=== PATIENT | male | born 1960 | race Caucasian/White ===

== ENCOUNTER 2024-04-07 17:05 | Emergency (ER) | payer OTHER ==
--- OUTSIDE RECORDS SUMMARY | 2024-04-07 17:22 | XMS REPORT | Continuity of Care Document ---
Author Name Unknown Address [address] [facility] [address] [place] [address] [facility] thconnect Address [address] [facility] [address] [place] [address] Care Team Providers Care Boats Renter Name Role Phone [phone] Primary Care Physician UnavailMIKY Romero Attending Clinician Unavailable Laura Beltran MD Attending Clinician [phone] LAURA BELTRAN Attending Clinician UnavailNuvia Wick Attending Clinician [phone] Doctor Unassigned, [place] Attending Clinician U NUVIA Torres Attending Clinician Unavailable Bill May Attending Clinician UnavailMiky Romero OD Attending Clinician [phone] Vaccine, [facility] Attending Clinician Unav JUAN J Olsen Attending Clinician Unavailab JUAN J La Attending Clinician UnavailJuan J Arevalo Attending Clinician + [phone] JOSE LU Attending Clinician Unavailable JOSE LU Attending Clinician Unavailable Jose Lu MD Attending Clinician [phone] Joycelyn, [facility] Attending Clinician Unavailsummer Hirsch, [facility] Attending Clinician UnavailLucia De León Attending Clinician [phone] LUCIA RUFFIN Attending Clinician Unavailable Doctor Unassigned, [place] Attending Clinician U alvaro Cleaning MD, Macy Tellez Attending Clinic salty KARTHIK MARTINS Attending Clinician UnavailKarthik Humphrey MD Attending Clinician [phone] Garret Villanueva MD, Evert Rios Attending Clinician Lyn Johnson DO Attending Clinician [phone] LYN JOHNSON Attending Clinician Unavailable Magdalena Kapoor MD Attending Clinician [phone] MAGDALENA KAPOOR Attending Clinician Unavailable Laura Beltran MD Attending Clinician + [phone] QUIRINO MANTILLA Attending Clinician Unavailab JENNIFER Hoff Attending Clinician Unavailable Claudette Charles MD Attending Clinician + [phone] CLAUDETTE CHARLES Attending Clinician UnavailCLAUDETTE Darnell Attending Clinician Unavaila stefani 1, [facility] Attending Clinician Unavail able ANALISA HORNEUWATOSIN Sakshi Attending Clinician Unava ilable Coleen STEARNS, Eden Sakshi Attending Clinician + NAMRATA CHAVEZ Attending Clinician Unavailable Namrata Chavez MD Attending Clinician [phone] JOSE LU Admitting Clinician Unavailable Jose Lu MD Admitting Clinician + [phone] NUVIA LANGSTON Admitting Clinician Unavailable MAGDALENA KAPOOR Admitting Clinician Unavailable LAURA BELTRAN Admitting Clinician Unavaila stefani Payers Payer Name Policy Type Policy Number Effective Date Expirati on Date Source [facility] [id number] 2014 00:00:00 Problems Condition Name Condition Details Condition Category Status Onset Date Resolution Date Last Treatment Date Treating Clinician Comments Source Abdominal fullness Abdominal fullness Disease Active 09-01 00:00: 00 [facility] Dysphagia, unspecifie d type Dysphagia, unspecifie d type Disease Active 09-01 00:00: 00 [facility] Flatulence , eructation , and gas pain Flatulence , eructation , and gas pain Disease Active 09-01 00:00: 00 [facility] Primary osteoarthr itis of both knees Primary osteoarthr itis of both knees Disease Active 08-28 00:00: 00 [facility] Allergic conjunctiv itis of both eyes Allergic conjunctiv itis of both eyes Disease Active 03-02 00:00: 00 [facility] History of colon polyps History of colon polyps Disease Active 03-02 00:00: 00 [facility] History of skin cancer History of skin cancer Disease Active 03-02 00:00: 00 [facility] Chronic blephariti s Chronic blephariti s Disease Active 03-02 00:00: 00 [facility] Atypical pigmented skin lesion Atypical pigmented skin lesion Disease Active 03-02 00:00: 00 [facility] Pseudogout of hand Pseudogout of hand Disease Active 02-13 00:00: 00 [facility] 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 Provider Narrative : Rotator cuff tear arthropat hy | [facility] Stiffness of shoulder joint Stiffness of shoulder joint Disease Active 02-13 00:00: 00 [facility] Tinnitus Tinnitus Disease Active 02-13 00:00: 00 [facility] Asthma Asthma Disease Active 02-13 00:00: 00 [facility] Dizziness Dizziness Disease Active 02-13 00:00: 00 [facility] Shortness of breath Shortness of breath Disease Active 02-13 00:00: 00 [facility] Dupuytren' s contractur e of right hand Dupuytren' s contractur e of right hand Disease Active 02-13 00:00: 00 [facility] Hyperlipid emia, unspecifie d hyperlipid emia type Hyperlipid emia, unspecifie d hyperlipid emia type Disease Active 02-13 00:00: 00 [facility] Essential hypertensi on Essential hypertensi on Disease Active 02-13 00:00: 00 [facility] Pain of both shoulder joints Pain of both shoulder joints Disease Active 08-11 00:00: 00 Overview: Formattin g of this note might be different from the original. Formattin g of this note might be different from the original. [facility] Obstructiv e sleep apnea Obstructiv e sleep apnea Disease Active 5- 00:00: 00 Overview: Formattin g of this note might be different from the original. Formattin g of this note might be different from the original. Sleep study done 2 weeks ago at [facility]. Report not available in [facility] Will sign release of records for [facility] to get sleep study report [facility] No known active problems No known active problems Disease [facility] Colon cancer screening Colon cancer screening Disease Resolve d 7 00:00: 00 2024-02-12 00:00:00 2024-02-12 12:40:41 [facility] Acute recurrent maxillary sinusitis Acute recurrent maxillary sinusitis Disease Resolve d 5- 00:00: 00 2024-02-12 00:00:00 2024-02-12 12:40:28 Last Assessmen t & Plan: Formattin g of this note might be different from the original. Acute, exacerbat ed.Sympto ms began 9-10 days ago. POCT Flu, Strep, and COVID test obtained. Flu, Strep, and COVID test negative. Initiate Doxycylin e 100 mg BID for 7 days. Start OTC antihista mine daily. Start Flonase 2 sprays intranasa lly daily. If symptoms worsen or continues to develop sinus infection , will need to refer to ENT.Tylen ol/Ibupro fen as needed for fever/hea dache/bod y aches. Continue oral hydration by drinking plenty of fluids. Monitor your symptoms. If you have an emergency warning sign like trouble breathing seek emergency medical attention .Follow-u p if symptoms worsen or do not improve. [facility] Nausea Nausea Disease Resolve d 1- 00:00: 00 2024-02-12 00:00:00 2024-02-12 12:40:53 [facility] Syncope Syncope Disease Resolve d 1- 00:00: 00 2023-08-24 00:00:00 2023-08-24 08:51:53 Overview: Formattin g of this note might be different from the original. Provider Narrative : Syncope | [facility] Tear film insufficie ncy Tear film insufficie ncy Disease Resolve d 2021-02 00:00: 00 2023-05-22 00:00:00 2023-05-22 14:50:49 Overview: Formattin g of this note might be different from the original. Formattin g of this note might be different from the original. Refer to ophthalmo logy--sig tiffanie by Dr. Neves [facility] Polycythem ia Polycythem ia Disease Resolve d 9-23 00:00: 00 2023-02-13 00:00:00 2023-02-13 20:52:02 [facility] Allergies, Adverse Reactions, Alerts Allergy Name Allergy Type Status Severity Reaction(s) Onset Date Inactive Date Treating Clinician Comments Source NO KNOWN ALLERGIE S Drug Class Active [facility] Social History Social Habit Start Date Stop Date Quantity Comments Source Gender identity [facility] 2024-03-19 00:00:00 2024-03-19 00:00:00 [facility] Exposure to SARS-CoV-2 (event) 2022-05-07 00:00:00 2022-05-17 15:32:00 Not sure [facility] Tobacco use and exposure 2020-12-23 00:00:00 2020-12-23 00:00:00 Smokeless tobacco non-user [facility] Sex assigned at 1960 00:00:00 1960 00:00:00 [facility] Smoking Status Start Date Stop Date Source Never smoked tobacco [facility] Medications Ordered Medication Name Filled Medication Name Start Date Stop Date Current Medication? Ordering Clinician Indication Dosage Frequency Signature (SIG) Comments Components Source tamsulosin 0.4 mg 24 hr capsule 03-21 00:00: 00 Yes [id number] .8mg Take 2 capsules by mouth in the morning. [facility] diclofenac sodium 1 % gel 03-21 00:00: 00 Yes [id number] Apply 4 grams 1 % gel four times daily to knee as needed for pain [facility] gabapentin 100 mg capsule 03-21 00:00: 00 04-21 04:59 :00 Yes [id number] 9103 Take 1 capsule by mouth daily for 3 days, THEN 1 capsule 2 (two) times daily for 3 days, THEN 1 capsule 3 (three) times daily for 24 days. Okay to take up to 2-3 tablets every 8 hours as needed [facility] FLUoxetine 20 mg tablet 02-11 00:00: 00 Yes [id number] 20mg Take 1 tablet by mouth in the morning. [facility] cetirizine (ZYRTEC) 10 mg tablet 02-11 00:00: 00 Yes [id number] 10mg Take 1 tablet by mouth in the morning. [facility] rosuvastati n 40 mg tablet 2023-02 00:00: 00 Yes [id number] Take 1 tablet by mouth daily [facility] Acetaminoph en 500 mg Cap 2023-02 00:00: 00 Yes [id number] 4105 Take 1-2 capsules by mouth every 6 hours as needed for pain. [facility] benzonatate 200 mg capsule 2023-02 00:00: 00 03-21 00:00 :00 No [id number] 200mg Take 1 capsule by mouth 3 (three) times daily as needed for Cough. [facility] FLUoxetine 20 mg tablet 2023-02 00:00: 00 02-11 00:00 :00 No [id number] 20mg Take 1 tablet by mouth in the morning. [facility] eyelid cleanser combination 9 (SYSTANE LID WIPES) Towl 2023-02 00:00: 00 03-25 05:59 :00 No [id number] 1U Apply 1 Units to area(s) in the morning for 90 days. [facility] butalbital- acetaminoph en-caff (ESGIC) 50-325-40 mg tablet 1 tablet 2023-02 17:15: 00 12-06 17:19 :00 No 1{tbl} 1 tablet, Oral, ONCE, 1 dose, On Sun12/07/23 at 1215, ANDREIA [facility] tetracaine (PONTOCAINE ) 0.5 % ophthalmic drops 1 Drop 2023-02 17:15: 00 12-06 16:40 :00 No 1[drp] 1 Drop, Both Eyes, ONCE, 1 dose, On Sun12/07/23 at 1215, Routine [facility] fluorescein (FUL-JACOB) ophthalmic strip 2 Strip 2023-02 17:15: 00 12-06 16:40 :00 No 2{strip } 2 Strip, Both Eyes, ONCE, 1 dose, On Sun12/07/23 at 1215, Routine [facility] butalbital- acetaminoph en-caff 50-325-40 mg tablet 2023-02 00:00: 00 Yes [id number] 1{tbl} Take 1 tablet by mouth every 4 (four) hours as needed for Pain (scale 4-6). [facility] FENTanyl (PF) (SUBLIMAZE) injection 25 mcg 11-04 17:39: 10 11-04 20:24 :03 No 25ug 25 mcg, Slow IV Push, Q5MIN PRN, 4 doses, Starting on Sun11/05/23 at 1239, Until Sun11/05/23 at 1524, Routine, Pain Scale 4-6, PACU [facility] ondansetron (ZOFRAN (PF)) injection 4 mg 11-04 17:39: 10 11-04 20:24 :03 No 4mg 4 mg, Slow IV Push, PRN, 1 dose, Starting on Sun11/05/23 at 1239, Until Sun11/05/23 at 1524, Routine, Nausea and Vomiting (N/V), PACU [facility] simethicone (GAS RELIEF (SIMETHICON E)) 40 mg/0.6 mL drops 11-04 17:04: 00 11-04 17:31 :56 No PRN, Starting on Sun11/05/23 at 1204, Until Sun11/05/23 at 1231, Routine, Intra-op [facility] amLODIPine 5 mg tablet 09-27 00:00: 00 Yes [id number] amlodipine 5 mg tablet [facility] lisinopriL 10 mg tablet 09-27 00:00: 00 Yes [id number] 10mg Take 1 tablet by mouth in the morning. [facility] metoprolol succinate XL 25 mg 24 hr tablet 09-27 00:00: 00 Yes [id number] 12.5mg Take 0.5 tablets by mouth in the morning. [facility] CoQ10, Ubiquinol, 200 mg capsule 09-27 00:00: 00 Yes [id number] 200mg Take 1 capsule by mouth in the morning. [facility] rosuvastati n 40 mg tablet 09-27 00:00: 00 01-14 00:00 :00 No [id number] Take 1 tablet by mouth daily [facility] peg-electro lyte soln 236-22.74-6 .74 -5.86 gram solution 08-30 00:00: 00 Yes [id number] Please follow [facility] prep instructio ns for colonoscop y. [facility] pantoprazol e 40 mg EC tablet 08-23 00:00: 00 Yes [id number] 40mg Take 1 tablet by mouth in the morning. [facility] diclofenac dodium 1 % gel 08-23 00:00: 00 03-21 00:00 :00 No [id number] Apply 4 grams 1 % gel four times daily to knee as needed for pain [facility] amLODIPine 5 mg tablet 08-23 00:00: 00 09-27 00:00 :00 No [id number] amlodipine 5 mg tablet [facility] lisinopriL 10 mg tablet 08-23 00:00: 00 09-27 00:00 :00 No [id number] 10mg Take 1 tablet by mouth in the morning. [facility] [place]-3-DHA -EPA-Fish Oil (FISH OIL) 1,000 mg (120 mg-180 mg) Cap 08-22 00:00: 00 Yes [id number] 1{capsu le} Take 1 capsule by mouth in the morning and 1 capsule in the evening. [facility] tamsulosin 0.4 mg 24 hr capsule 08-22 00:00: 00 03-21 00:00 :00 No [id number] .4mg Take 1 capsule by mouth in the morning. [facility] fluticasone propionate 50 mcg/actuati on nasal spray 08-02 00:00: 00 02-11 00:00 :00 No [id number] 2{spray } Use 2 Sprays in each nostril in the morning. [facility] peg-electro lyte soln 236-22.74-6 .74 -5.86 gram solution 07-19 00:00: 00 08-30 00:00 :00 No Please follow [facility] prep instructio ns for colonoscop y. [facility] benzonatate 200 mg capsule 06-24 00:00: 00 08-23 00:00 :00 No [id number] 200mg Take 1 capsule by mouth every 8 (eight) hours as needed for Cough. [facility] fluticasone propionate 50 mcg/actuati on nasal spray 06-24 00:00: 00 08-02 00:00 :00 No [id number] 2{spray } Use 2 Sprays in each nostril in the morning. [facility] doxycycline hyclate 100 mg capsule 06-24 00:00: 07-02 04:59 :00 No [id number] 100mg Take 1 capsule by mouth in the morning and 1 capsule in the evening. Do all this for 7 days. [facility] albuterol 90 mcg/actuati on inhaler 06-17 00:00: 00 Yes [id number] INHALE 2 PUFFS EVERY 4 TO 6 HOURS NEEDED [facility] cyclobenzap rine 10 mg tablet 16 14:00: 49 Yes cyclobenza celsa 10 mg tablet [facility] cetirizine (ZYRTEC) 10 mg tablet 05-21 14:00: 49 02-11 00:00 :00 No Zyrtec 10 mg tablet Take 1 tablet every day by oral route. [facility] naproxen 500 mg tablet 05-21 14:00: 49 01-14 00:00 :00 No naproxen 500 mg tablet [facility] lisinopriL 10 mg tablet 05-21 14:00: 49 08-23 00:00 :00 No 10mg Take 1 tablet by mouth in the morning. [facility] trazodone HCl (TRAZODONE ORAL) 05-21 14:00: 49 08-22 00:00 :00 No Take by mouth. [facility] aspirin 81 mg EC tablet 05-21 13:58: 11 03-21 00:00 :00 No at bed time [facility] acetaminoph en 325 mg tablet 16 13:56: 43 01-14 00:00 :00 No acetaminop hen 325 mg tablet TAKE 2 TABLETS BY MOUTH EVERY 6 HOURS NEEDED FOR PAIN/FEVER [facility] benzonatate 200 mg capsule 05-21 00:00: 00 06-24 00:00 :00 No [id number] 200mg Take 1 capsule by mouth 3 (three) times daily as needed for Cough. [facility] albuterol (PROAIR HFA) 90 mcg/actuati on inhaler 16 00:00: 00 06-17 00:00 :00 No [id number] ProAir HFA 90 mcg/actuat ion aerosol inhaler Inhale 2 puffs every 4-6 hours by inhalation route as needed. [facility] amoxicillin -clavulanat e (AUGMENTIN) 875-125 mg per tablet 05-21 00:00: 00 05-29 04:59 :00 No [id number] 1{tbl} Take 1 tablet by mouth in the morning and 1 tablet in the evening. Do all this for 7 days. [facility] rosuvastati n 40 mg tablet 04-17 00:00: 00 09-27 00:00 :00 No [id number] Take 1 tablet by mouth daily [facility] pantoprazol e 40 mg EC tablet 04-11 00:00: 00 08-23 00:00 :00 No [id number] 40mg Take 1 tablet by mouth in the morning. [facility] pantoprazol e 40 mg EC tablet 03-29 00:00: 00 04-11 00:00 :00 No [id number] 40mg Take 1 tablet by mouth in the morning. [facility] trazodone HCl (TRAZODONE ORAL) 03-23 15:00: 30 Yes Take by mouth. [facility] aspirin 81 mg EC tablet 16 14:50: 04 Yes at bed time [facility] lisinopriL 10 mg tablet 16 14:49: 53 Yes 10mg Take 1 tablet by mouth in the morning. [facility] olopatadine (PATADAY TWICE DAILY RELIEF) 0.1 % ophthalmic solution 03-15 00:00: 00 Yes [id number] 1[drp] Place 1 Drop in both eyes in the morning and 1 Drop in the evening. As needed for itchy, watery eyes, or crust accumulati on [facility] pantoprazol e 40 mg EC tablet 02-27 00:00: 00 03-29 00:00 :00 No [id number] 40mg Take 1 tablet by mouth in the morning. [facility] Olopatadine (PATADAY ONCE DAILY RELIEF) 0.2 % ophthalmic drops 02-27 00:00: 00 03-15 00:00 :00 No [id number] 1[drp] Place 1 Drop in each eye in the morning. As needed for itchy/wate ry eyes [facility] pantoprazol e 40 mg EC tablet 02-16 00:00: 00 02-27 00:00 :00 No [id number] 40mg Take 1 tablet by mouth in the morning. [facility] naproxen 500 mg tablet 02-13 15:21: 18 Yes naproxen 500 mg tablet [facility] aspirin 81 mg EC tablet 02-13 15:16: 08 Yes at bed time [facility] trazodone HCl (TRAZODONE ORAL) 02-13 15:12: 15 Yes Take by mouth. [facility] cyclobenzap rine 10 mg tablet 02-13 15:12: 15 Yes cyclobenza celsa 10 mg tablet [facility] atorvastati n 40 mg tablet 02-13 15:10: 28 02-13 00:00 :00 No 40mg Take 1 tablet by mouth at bedtime. [facility] pantoprazol e 40 mg EC tablet 02-13 00:00: 00 02-15 00:00 :00 No [id number] 40mg Take 1 tablet by mouth in the morning. [facility] rosuvastati n 40 mg tablet 08-17 00:00: 00 04-17 00:00 :00 No 40mg Take 1 tablet by mouth in the morning. [facility] trazodone HCl (TRAZODONE ORAL) 05-17 15:42: 52 Yes Take by mouth. [facility] lisinopriL 10 mg tablet 05-17 15:42: 24 Yes 10mg Take 1 tablet by mouth in the morning. [facility] trazodone HCl (TRAZODONE ORAL) 05-17 15:42: 24 Yes Take by mouth. [facility] atorvastati n 40 mg tablet 05-17 15:42: 24 Yes 40mg Take 1 tablet by mouth at bedtime. [facility] cyclobenzap rine 10 mg tablet 05-17 15:41: 19 Yes cyclobenza celsa 10 mg tablet [facility] cyclobenzap rine 10 mg tablet 2020-02 14:24: 04 Yes cyclobenza celsa 10 mg tablet [facility] [place]-3-DHA -EPA-Fish Oil (FISH OIL) 300-1,000 mg Cap 2020-02 14:24: 04 Yes Fish Oil 300 mg-500 mg capsule Take 1 capsule every day by oral route. [facility] acetaminoph en 325 mg tablet 2020-02 14:24: 04 Yes acetaminop hen 325 mg tablet TAKE 2 TABLETS BY MOUTH EVERY 6 HOURS NEEDED FOR PAIN/FEVER [facility] cetirizine (ZYRTEC) 10 mg tablet 2020-02 14:24: 04 Yes Zyrtec 10 mg tablet Take 1 tablet every day by oral route. [facility] ascorbic acid, vitamin C, 500 mg tablet 2020-02 14:24: 04 Yes Vitamin C 500 mg tablet [facility] cholecalcif sujatha, vitamin D3, 25 mcg (1,000 unit) tablet 2020-02 14:24: 04 Yes Vitamin D3 25 mcg (1,000 unit) tablet Take 2 tablets every day by oral route. [facility] [place]-3-DHA -EPA-Fish Oil (FISH OIL) 300-1,000 mg Cap 2020-02 14:24: 04 08-22 00:00 :00 No Fish Oil 300 mg-500 mg capsule Take 1 capsule every day by oral route. [facility] albuterol (PROAIR HFA) 90 mcg/actuati on inhaler 2020-02 14:24: 04 05-21 00:00 :00 No ProAir HFA 90 mcg/actuat ion aerosol inhaler Inhale 2 puffs every 4-6 hours by inhalation route as needed. [facility] budesonide- formoteroL 80-4.5 mcg/actuati on inhaler 2020-02 14:24: 04 05-21 00:00 :00 No Symbicort 80 mcg-4.5 mcg/actuat ion HFA aerosol inhaler Inhale 2 puffs twice a day by inhalation route. [facility] amLODIPine 5 mg tablet 10-28 00:00: 00 08-23 00:00 :00 No amlodipine 5 mg tablet [facility] lisinopriL 20 mg tablet 10-28 00:00: 00 01-27 05:59 :00 No 20mg Take 20 mg by mouth. [facility] atorvastati n 80 mg tablet 10-28 00:00: 00 01-27 05:59 :00 No 80mg Take 80 mg by mouth. [facility] Immunizations Ordered Immunization Name Filled Immunization Name Date Status Comments Source Flu Injectable [facility] Pres-Free (FLUCELVAX) 2024-01-15 00:00:00 Completed [facility] Influenza Virus Vaccine Quad IM, Preserv and ABX Free 6 MO-64 YRS (FLUCELVAX) 2022-11-05 00:00:00 Completed SARS-COV-2 COVID 19 UMESH SUCROSE VACCINE 12+, , 0.3 ML (30 MCG), IM PFIZER (LANGSTON TOP) 2022-11-05 00:00:00 Completed Influenza Virus Vaccine Quad IM, Preserv and ABX Free 6 MO-64 YRS (FLUCELVAX) 2022-11-05 00:00:00 Completed SARS-COV-2 COVID 19 UMESH SUCROSE VACCINE 12+, , 0.3 ML (30 MCG), IM PFIZER (LANGSTON TOP) 2022-11-05 00:00:00 Completed Influenza Virus Vaccine Quad IM, Preserv and ABX Free 6 MO-64 YRS (FLUCELVAX) 2022-11-05 00:00:00 Completed SARS-COV-2 COVID 19 UMESH SUCROSE VACCINE 12+, 0.3 ML (30 MCG), IM PFIZER (LANGSTON TOP) 2022-11-05 00:00:00 Completed TDAP 2022-06-02 00:00:00 Completed Zoster Vaccine Recombinant 2022-06-02 00:00:00 Completed TDAP 2022-06-02 00:00:00 Completed Zoster Vaccine Recombinant 2022-06-02 00:00:00 Completed TDAP 2022-06-02 00:00:00 Completed Zoster Vaccine Recombinant 2022-06-02 00:00:00 Completed Influenza Virus Vaccine Quad IM 3+ YRS 2022-01-02 00:00:00 Completed Pneumococcal 20 Conjugate, PCV20 (Prevnar 20) 2022-01-02 00:00:00 Completed [facility] Influenza Virus Vaccine Quad IM 3+ YRS 2022-01-02 00:00:00 Completed Pneumococcal 20 Conjugate, PCV20 (Prevnar 20) 2022-01-02 00:00:00 Completed [facility] Influenza Virus Vaccine Quad IM 3+ YRS 2022-01-02 00:00:00 Completed Pneumococcal 20 Conjugate, PCV20 (Prevnar 20) 2022-01-02 00:00:00 Completed [facility] SARS-COV-2 COVID-19 UMESH-SUCROSE VACCINE 12 YRS+, BIVALENT 0.3ML, IM, (PFIZER LANGSTON TOP) 2021-11-03 00:00:00 Completed SARS-COV-2 COVID-19 UMESH-SUCROSE VACCINE 12 YRS+, BIVALENT 0.3ML, IM, (PFIZER LANGSTON TOP) 2021-11-03 00:00:00 Completed SARS-COV-2 COVID-19 UMESH-SUCROSE VACCINE 12 YRS+, BIVALENT 0.3ML, IM, (PFIZER LANGSTON TOP) 2021-11-03 00:00:00 Completed SARS-COV-2 COVID-19 PFIZER VACCINE 2021-01-14 00:00:00 Completed SARS-COV-2 COVID-19 PFIZER VACCINE 2021-01-14 00:00:00 Completed SARS-COV-2 COVID-19 PFIZER VACCINE 2021-01-14 00:00:00 Completed Influenza Virus Vaccine Quad IM 3+ YRS 2020-11-03 00:00:00 Completed Pneumococcal Polysaccharide, PPSV23 (PNEUMOVAX) 2020-11-03 00:00:00 Completed Zoster Vaccine Recombinant 2020-11-03 00:00:00 Completed Influenza Virus Vaccine Quad IM 3+ YRS 2020-11-03 00:00:00 Completed Pneumococcal Polysaccharide, PPSV23 (PNEUMOVAX) 2020-11-03 00:00:00 Completed Zoster Vaccine Recombinant 2020-11-03 00:00:00 Completed Influenza Virus Vaccine Quad IM 3+ YRS 2020-11-03 00:00:00 Completed Pneumococcal Polysaccharide, PPSV23 (PNEUMOVAX) 2020-11-03 00:00:00 Completed Zoster Vaccine Recombinant 2020-11-03 00:00:00 Completed SARS-COV-2 COVID-19 PFIZER VACCINE 2020-05-21 00:00:00 Completed SARS-COV-2 COVID-19 PFIZER VACCINE 2020-05-21 00:00:00 Completed SARS-COV-2 COVID-19 PFIZER VACCINE 2020-05-21 00:00:00 Completed SARS-COV-2 COVID-19 PFIZER VACCINE 2020-04-23 00:00:00 Completed SARS-COV-2 COVID-19 PFIZER VACCINE 2020-04-23 00:00:00 Completed SARS-COV-2 COVID-19 PFIZER VACCINE 2020-04-23 00:00:00 Completed Influenza Virus Vaccine Quad IM 3+ YRS 2019-11-12 00:00:00 Completed Influenza Virus Vaccine Quad IM 3+ YRS 2019-11-12 00:00:00 Completed Influenza Virus Vaccine Quad IM 3+ YRS 2019-11-12 00:00:00 Completed Influenza Virus Vaccine Quad IM 3+ YRS 2018-12-18 00:00:00 Completed [facility] Zoster Vaccine Recombinant 2018-12-18 00:00:00 Completed Influenza Virus Vaccine Quad IM 3+ YRS 2018-12-18 00:00:00 Completed [facility] Zoster Vaccine Recombinant 2018-12-18 00:00:00 Completed Influenza Virus Vaccine Quad IM 3+ YRS 2018-12-18 00:00:00 Completed [facility] Zoster Vaccine Recombinant 2018-12-18 00:00:00 Completed Influenza Virus Vaccine Quad IM 3+ YRS 2017-11-08 00:00:00 Completed Zoster Vaccine Recombinant 2017-11-08 00:00:00 Completed Influenza Virus Vaccine Quad IM 3+ YRS 2017-11-08 00:00:00 Completed Zoster Vaccine Recombinant 2017-11-08 00:00:00 Completed Influenza Virus Vaccine Quad IM 3+ YRS 2017-11-08 00:00:00 Completed Zoster Vaccine Recombinant 2017-11-08 00:00:00 Completed Influenza Virus Vaccine Quad IM 3+ YRS 2016-11-22 00:00:00 Completed Pneumococcal 13 Conjugate, PCV13 (Prevnar 13) 2016-11-22 00:00:00 Completed TDAP 2016-11-22 00:00:00 Completed Influenza Virus Vaccine Quad IM 3+ YRS 2016-11-22 00:00:00 Completed Pneumococcal 13 Conjugate, PCV13 (Prevnar 13) 2016-11-22 00:00:00 Completed TDAP 2016-11-22 00:00:00 Completed Influenza Virus Vaccine Quad IM 3+ YRS 2016-11-22 00:00:00 Completed Pneumococcal 13 Conjugate, PCV13 (Prevnar 13) 2016-11-22 00:00:00 Completed TDAP 2016-11-22 00:00:00 Completed Influenza Virus Vaccine (3+ yrs) 2015-10-17 00:00:00 Completed Influenza, split virus, trivalent, PF (AFLURIA/FLUARIX/FL ULAVAL/FLUZONE) 2015-10-17 00:00:00 Completed Influenza, split virus, trivalent, preservative (3+ Yrs) (Afluria) 2015-10-17 00:00:00 Completed Influenza, split virus, trivalent, PF (AFLURIA/FLUARIX/FL ULAVAL/FLUZONE) 2015-10-17 00:00:00 Completed Influenza, split virus, trivalent, preservative (3+ Yrs) (Afluria) 2015-10-17 00:00:00 Completed Influenza, split virus, trivalent, PF (AFLURIA/FLUARIX/FL ULAVAL/FLUZONE) 2015-10-17 00:00:00 Completed Pneumococcal Polysaccharide, PPSV23 (PNEUMOVAX) 2015-03-16 00:00:00 Completed TDAP 2015-03-16 00:00:00 Completed Pneumococcal Polysaccharide, PPSV23 (PNEUMOVAX) 2015-03-16 00:00:00 Completed TDAP 2015-03-16 00:00:00 Completed Pneumococcal Polysaccharide, PPSV23 (PNEUMOVAX) 2015-03-16 00:00:00 Completed TDAP 2015-03-16 00:00:00 Completed Zoster(Zostavax)([facility]) 2014-02-17 00:00:00 Completed Zoster(Zostavax)([facility]) 2014-02-17 00:00:00 Completed Zoster(Zostavax)([facility]) 2014-02-17 00:00:00 Completed Influenza, split virus, trivalent, PF (AFLURIA/FLUARIX/FL ULAVAL/FLUZONE) 2013-12-18 00:00:00 Completed Influenza, split virus, trivalent, PF (AFLURIA/FLUARIX/FL ULAVAL/FLUZONE) 2013-12-18 00:00:00 Completed Influenza, split virus, trivalent, PF (AFLURIA/FLUARIX/FL ULAVAL/FLUZONE) 2013-12-18 00:00:00 Completed Influenza, split virus, trivalent, PF (AFLURIA/FLUARIX/FL ULAVAL/FLUZONE) 2013-12-04 00:00:00 Completed Influenza, split virus, trivalent, PF (AFLURIA/FLUARIX/FL ULAVAL/FLUZONE) 2013-12-04 00:00:00 Completed Influenza, split virus, trivalent, PF (AFLURIA/FLUARIX/FL ULAVAL/FLUZONE) 2013-12-04 00:00:00 Completed Influenza Virus Vaccine Quad Nasal (Flumist) 2012-11-19 00:00:00 Completed Influenza Virus Vaccine Quad Nasal (Flumist) 2012-11-19 00:00:00 Completed Influenza Virus Vaccine Quad Nasal (Flumist) 2012-11-19 00:00:00 Completed Influenza, Live, Trivalent, Intranasal (FLUMIST) 2011-10-03 00:00:00 Completed Influenza, Live, Trivalent, Intranasal (FLUMIST) 2011-10-03 00:00:00 Completed Influenza, Live, Trivalent, Intranasal (FLUMIST) 2011-10-03 00:00:00 Completed TDAP 2011-08-29 00:00:00 Completed Anthrax Vaccine 2011-08-29 00:00:00 Completed PPD (TB) 2011-08-29 00:00:00 Completed Varicella (varivax)(chicken pox) 2011-08-29 00:00:00 Completed Typhoid Vaccine, Vi Capsular Polysaccharide, IM 2011-08-29 00:00:00 Completed TDAP 2011-08-29 00:00:00 Completed Anthrax Vaccine 2011-08-29 00:00:00 Completed PPD (TB) 2011-08-29 00:00:00 Completed Varicella (varivax)(chicken pox) 2011-08-29 00:00:00 Completed Typhoid Vaccine, Vi Capsular Polysaccharide, IM 2011-08-29 00:00:00 Completed TDAP 2011-08-29 00:00:00 Completed Anthrax Vaccine 2011-08-29 00:00:00 Completed PPD (TB) 2011-08-29 00:00:00 Completed Varicella (varivax)(chicken pox) 2011-08-29 00:00:00 Completed Typhoid Vaccine, Vi Capsular Polysaccharide, IM 2011-08-29 00:00:00 Completed Influenza, Live, Trivalent, Intranasal (FLUMIST) 2010-11-23 00:00:00 Completed Influenza, Live, Trivalent, Intranasal (FLUMIST) 2010-11-23 00:00:00 Completed Influenza, Live, Trivalent, Intranasal (FLUMIST) 2010-11-23 00:00:00 Completed Influenza Virus Vaccine 2009-12-02 00:00:00 Completed Influenza Virus Vaccine 2009-12-02 00:00:00 Completed Influenza Virus Vaccine 2009-12-02 00:00:00 Completed Anthrax Vaccine 2009-05-13 00:00:00 Completed Anthrax Vaccine 2009-05-13 00:00:00 Completed Anthrax Vaccine 2009-05-13 00:00:00 Completed Smallpox 2008-12-10 00:00:00 Completed Smallpox 2008-12-10 00:00:00 Completed Smallpox 2008-12-10 00:00:00 Completed Influenza, Live, Trivalent, Intranasal (FLUMIST) 2008-12-09 00:00:00 Completed PPD (TB) 2008-12-09 00:00:00 Completed Influenza, Live, Trivalent, Intranasal (FLUMIST) 2008-12-09 00:00:00 Completed PPD (TB) 2008-12-09 00:00:00 Completed Influenza, Live, Trivalent, Intranasal (FLUMIST) 2008-12-09 00:00:00 Completed PPD (TB) 2008-12-09 00:00:00 Completed Anthrax Vaccine 2008-04-02 00:00:00 Completed MMR 2008-04-02 00:00:00 Completed Anthrax Vaccine 2008-04-02 00:00:00 Completed MMR 2008-04-02 00:00:00 Completed Anthrax Vaccine 2008-04-02 00:00:00 Completed MMR 2008-04-02 00:00:00 Completed Typhoid Vaccine, Vi Capsular Polysaccharide, IM 2008-01-15 00:00:00 Completed Typhoid Vaccine, Vi Capsular Polysaccharide, IM 2008-01-15 00:00:00 Completed Typhoid Vaccine, Vi Capsular Polysaccharide, IM 2008-01-15 00:00:00 Completed HEP B, Adult Dosage 2007-12-11 00:00:00 Completed Influenza, Live, Trivalent, Intranasal (FLUMIST) 2007-12-11 00:00:00 Completed HEP B, Adult Dosage 2007-12-11 00:00:00 Completed Influenza, Live, Trivalent, Intranasal (FLUMIST) 2007-12-11 00:00:00 Completed HEP B, Adult Dosage 2007-12-11 00:00:00 Completed Influenza, Live, Trivalent, Intranasal (FLUMIST) 2007-12-11 00:00:00 Completed HEP B, Adult Dosage 2007-11-01 00:00:00 Completed Hepatitis A Adult 2007-11-01 00:00:00 Completed Typhoid Vaccine, Vi Capsular Polysaccharide, IM 2007-11-01 00:00:00 Completed HEP B, Adult Dosage 2007-11-01 00:00:00 Completed Hepatitis A Adult 2007-11-01 00:00:00 Completed Typhoid Vaccine, Vi Capsular Polysaccharide, IM 2007-11-01 00:00:00 Completed HEP B, Adult Dosage 2007-11-01 00:00:00 Completed Hepatitis A Adult 2007-11-01 00:00:00 Completed Typhoid Vaccine, Vi Capsular Polysaccharide, IM 2007-11-01 00:00:00 Completed PPD (TB) 2007-10-31 00:00:00 Completed PPD (TB) 2007-10-31 00:00:00 Completed PPD (TB) 2007-10-31 00:00:00 Completed Anthrax Vaccine 2007-09-16 00:00:00 Completed MMR 2007-09-16 00:00:00 Completed PPD (TB) 2007-09-16 00:00:00 Completed Anthrax Vaccine 2007-09-16 00:00:00 Completed MMR 2007-09-16 00:00:00 Completed PPD (TB) 2007-09-16 00:00:00 Completed Anthrax Vaccine 2007-09-16 00:00:00 Completed MMR 2007-09-16 00:00:00 Completed PPD (TB) 2007-09-16 00:00:00 Completed PPD (TB) 2007-05-15 00:00:00 Completed PPD (TB) 2007-05-15 00:00:00 Completed PPD (TB) 2007-05-15 00:00:00 Completed PPD (TB) 2007-05-08 00:00:00 Completed PPD (TB) 2007-05-08 00:00:00 Completed PPD (TB) 2007-05-08 00:00:00 Completed Flu Split Virus, PSA 2007-01-04 00:00:00 Completed Flu Split Virus, PSA 2007-01-04 00:00:00 Completed Flu Split Virus, PSA 2007-01-04 00:00:00 Completed Anthrax Vaccine 2006-11-15 00:00:00 Completed Anthrax Vaccine 2006-11-15 00:00:00 Completed Anthrax Vaccine 2006-11-15 00:00:00 Completed PPD (TB) 2006-10-10 00:00:00 Completed PPD (TB) 2006-10-10 00:00:00 Completed PPD (TB) 2006-10-10 00:00:00 Completed Anthrax Vaccine 2006-05-31 00:00:00 Completed Anthrax Vaccine 2006-05-31 00:00:00 Completed Anthrax Vaccine 2006-05-31 00:00:00 Completed Anthrax Vaccine 2006-01-11 00:00:00 Completed Anthrax Vaccine 2006-01-11 00:00:00 Completed Anthrax Vaccine 2006-01-11 00:00:00 Completed HEP B, Adult Dosage 2005-11-22 00:00:00 Completed Flu Split Virus, PSA 2005-11-22 00:00:00 Completed Typhoid Vaccine, Vi Capsular Polysaccharide, IM 2005-11-22 00:00:00 Completed HEP B, Adult Dosage 2005-11-22 00:00:00 Completed Flu Split Virus, PSA 2005-11-22 00:00:00 Completed Typhoid Vaccine, Vi Capsular Polysaccharide, IM 2005-11-22 00:00:00 Completed HEP B, Adult Dosage 2005-11-22 00:00:00 Completed Flu Split Virus, PSA 2005-11-22 00:00:00 Completed Typhoid Vaccine, Vi Capsular Polysaccharide, IM 2005-11-22 00:00:00 Completed HEP B, Adult Dosage 2005-05-09 00:00:00 Completed PPD (TB) 2005-05-09 00:00:00 Completed Hepatitis A Adult 2005-05-09 00:00:00 Completed HEP B, Adult Dosage 2005-05-09 00:00:00 Completed PPD (TB) 2005-05-09 00:00:00 Completed Hepatitis A Adult 2005-05-09 00:00:00 Completed HEP B, Adult Dosage 2005-05-09 00:00:00 Completed PPD (TB) 2005-05-09 00:00:00 Completed Hepatitis A Adult 2005-05-09 00:00:00 Completed Flu Split Virus, PSA 2004-12-20 00:00:00 Completed Flu Split Virus, PSA 2004-12-20 00:00:00 Completed Flu Split Virus, PSA 2004-12-20 00:00:00 Completed Flu Split Virus, PSA 2003-12-08 00:00:00 Completed Tetanus/Diptheria 2003-12-08 00:00:00 Completed Hepatitis A Adult 2003-12-08 00:00:00 Completed Flu Split Virus, PSA 2003-12-08 00:00:00 Completed Tetanus/Diptheria 2003-12-08 00:00:00 Completed Hepatitis A Adult 2003-12-08 00:00:00 Completed Flu Split Virus, PSA 2003-12-08 00:00:00 Completed Tetanus/Diptheria 2003-12-08 00:00:00 Completed Hepatitis A Adult 2003-12-08 00:00:00 Completed Anthrax Vaccine 2003-11-04 00:00:00 Completed HEP B, Adult Dosage 2003-11-04 00:00:00 Completed PPD (TB) 2003-11-04 00:00:00 Completed Anthrax Vaccine 2003-11-04 00:00:00 Completed HEP B, Adult Dosage 2003-11-04 00:00:00 Completed PPD (TB) 2003-11-04 00:00:00 Completed Anthrax Vaccine 2003-11-04 00:00:00 Completed HEP B, Adult Dosage 2003-11-04 00:00:00 Completed PPD (TB) 2003-11-04 00:00:00 Completed Meningococcal Vaccine 2003-08-03 00:00:00 Completed PPD (TB) 2003-08-03 00:00:00 Completed Typhoid Vaccine, Vi Capsular Polysaccharide, IM 2003-08-03 00:00:00 Completed Meningococcal Vaccine 2003-08-03 00:00:00 Completed PPD (TB) 2003-08-03 00:00:00 Completed Typhoid Vaccine, Vi Capsular Polysaccharide, IM 2003-08-03 00:00:00 Completed Meningococcal Vaccine 2003-08-03 00:00:00 Completed PPD (TB) 2003-08-03 00:00:00 Completed Typhoid Vaccine, Vi Capsular Polysaccharide, IM 2003-08-03 00:00:00 Completed [facility] Flu Split Virus, PSA 2003-01-07 00:00:00 Completed Flu Split Virus, PSA 2003-01-07 00:00:00 Completed Flu Split Virus, PSA 2003-01-07 00:00:00 Completed Flu Split Virus, PSA 2002-02-19 00:00:00 Completed Flu Split Virus, PSA 2002-02-19 00:00:00 Completed Flu Split Virus, PSA 2002-02-19 00:00:00 Completed Flu Whole Virus 2001-12-13 00:00:00 Completed Flu Whole Virus 2001-12-13 00:00:00 Completed Flu Whole Virus 2001-12-13 00:00:00 Completed SARS-COV-2 COVID 19 UMESH SUCROSE VACCINE +, [id number], 0.3 ML (30 MCG), IM PFIZER (LANGSTON TOP) Unknown Completed [facility]ria [facility]) [facility] Smallpox Unknown Completed [facility] Varicella (varivax)(chicken pox) Unknown Completed [facility] Zoster(Zostavax)(Sh ingles) Unknown Completed [facility] Pneumococcal 20 Conjugate, PCV20 (Prevnar 20) Unknown Completed [facility] Quad IM, Preserv and ABX Free 6 MO-64 YRS (FLUCELVAX) Unknown Completed [facility] SARS-COV-2 COVID 19 UMESH SUCROSE VACCINE 12+, [id number], 0.3 ML (30 MCG), IM PFIZER (LANGSTON TOP) Unknown Completed [facility] Typhoid Vaccine, Vi Capsular Polysaccharide, IM Unknown Completed [facility] Influenza Virus Vaccine Quad IM 3+ YRS Unknown Completed [facility] Influenza Virus Vaccine (3+ yrs) Unknown Completed [facility] Pneumococcal 13 Conjugate, PCV13 (Prevnar 13) Unknown Completed [facility] Pneumococcal Polysaccharide, PPSV23 (PNEUMOVAX) Unknown Completed [facility] TDAP Unknown Completed [facility] Zoster Vaccine Recombinant Unknown Completed [facility] Anthrax Vaccine Unknown Completed [facility] SARS-COV-2 COVID-19 PFIZER VACCINE Unknown Completed [facility] SARS-COV-2 COVID-19 UMESH-SUCROSE VACCINE 12 YRS+, BIVALENT 0.3ML, IM, (PFIZER LANGSTON TOP) Unknown Completed [facility] HEP B, Adult Dosage Unknown Completed [facility] Influenza Virus Vaccine Nasal Unknown Completed [facility] Flu Split Virus, PSA Unknown Completed [facility] Influenza Virus Vaccine Unknown Completed [facility] Flu Whole Virus Unknown Completed [facility] Influenza Virus Vaccine Quad Nasal (Flumist) Unknown Completed [facility] Flu Trivalent Unknown Completed [facility] MMR Unknown Completed [facility] Meningococcal Vaccine Unknown Completed [facility] Tetanus/Diptheria Unknown Completed Un [facility] PPD (TB) Unknown Completed [facility] Smallpox Unknown Completed [facility] Varicella (varivax)(chicken pox) Unknown Completed [facility] Zoster(Zostavax)(Sh ingles) Unknown Completed [facility] Pneumococcal 20 Conjugate, PCV20 (Prevnar 20) Unknown Completed [facility]atitis A Adult [facility] Quad IM, Preserv and ABX Free 6 MO-64 YRS (FLUCELVAX) Unknown Completed [facility] SARS-COV-2 COVID 19 UMESH SUCROSE VACCINE 12+, [id number], 0.3 ML (30 MCG), IM PFIZER (LANGSTON TOP) Unknown Completed [facility] Typhoid Vaccine, Vi Capsular Polysaccharide, IM Unknown Completed [facility] Influenza Virus Vaccine Quad IM 3+ YRS Unknown Completed [facility] Influenza Virus Vaccine (3+ yrs) Unknown Completed [facility] Pneumococcal 13 Conjugate, PCV13 (Prevnar 13) Unknown Completed [facility] Pneumococcal Polysaccharide, PPSV23 (PNEUMOVAX) Unknown Completed [facility] TDAP Unknown Completed [facility] Zoster Vaccine Recombinant Unknown Completed [facility] Anthrax Vaccine Unknown Completed [facility] SARS-COV-2 COVID-19 PFIZER VACCINE Unknown Completed [facility] SARS-COV-2 COVID-19 UMESH-SUCROSE VACCINE 12 YRS+, BIVALENT 0.3ML, IM, (PFIZER LANGSTON TOP) Unknown Completed [facility] HEP B, Adult Dosage Unknown Completed [facility] Influenza Virus Vaccine Nasal Unknown Completed [facility] Flu Split Virus, PSA Unknown Completed [facility] Influenza Virus Vaccine Unknown Completed [facility] Flu Whole Virus Unknown Completed [facility] Influenza Virus Vaccine Quad Nasal (Flumist) Unknown Completed [facility] Influenza, split virus, trivalent, PF (AFLURIA/FLUARIX/FL ULAVAL/FLUZONE) Unknown Completed [facility] MMR Unknown Completed [facility] Meningococcal Vaccine Unknown Completed [facility] Tetanus/Diptheria Unknown Completed [facility] PPD (TB) Unknown Completed [facility] Smallpox Unknown Completed [facility] Varicella (varivax)(chicken pox) Unknown Completed [facility] Zoster(Zostavax)(Sh ingles) Unknown Completed [facility] Pneumococcal 20 Conjugate, PCV20 (Prevnar 20) Unknown Completed [facility] Hepatitis A Adult [facility] Vaccine Quad IM, Preserv and ABX Free 6 MO-64 YRS (FLUCELVAX) Unknown Completed [facility] SARS-COV-2 COVID 19 UMESH SUCROSE VACCINE 12+, [id number], 0.3 ML (30 MCG), IM PFIZER (LANGSTON TOP) Unknown Completed [facility] Typhoid Vaccine, Vi Capsular Polysaccharide, IM Unknown Completed [facility] Influenza Virus Vaccine Quad IM 3+ YRS Unknown Completed [facility] Influenza Virus Vaccine Quad IM 3+ YRS Unknown Completed [facility] Influenza Virus Vaccine (3+ yrs) Unknown Completed [facility] Pneumococcal 13 Conjugate, PCV13 (Prevnar 13) Unknown Completed [facility] Pneumococcal Polysaccharide, PPSV23 (PNEUMOVAX) Unknown Completed [facility] TDAP Unknown Completed [facility] Zoster Vaccine Recombinant Unknown Completed [facility] Anthrax Vaccine Unknown Completed [facility] SARS-COV-2 COVID-19 PFIZER VACCINE Unknown Completed [facility] SARS-COV-2 COVID-19 UMESH-SUCROSE VACCINE 12 YRS+, BIVALENT 0.3ML, IM, (PFIZER LANGSTON TOP) Unknown Completed [facility] HEP B, Adult Dosage Unknown Completed [facility] Influenza Virus Vaccine Nasal Unknown Completed [facility] Flu Split Virus, PSA Unknown Completed [facility] Influenza Virus Vaccine Unknown Completed [facility] Flu Whole Virus Unknown Completed [facility] Influenza Virus Vaccine Quad Nasal (Flumist) Unknown Completed [facility] Influenza, split virus, trivalent, PF (AFLURIA/FLUARIX/FL ULAVAL/FLUZONE) Unknown Completed [facility] MMR Unknown Completed [facility] Meningococcal Vaccine Unknown Completed [facility] Tetanus/Diptheria Unknown Completed Un [facility] PPD (TB) Unknown Completed [facility] Influenza Virus Vaccine (3+ yrs) Unknown Completed [facility] Smallpox Unknown Completed [facility] Varicella (varivax)(chicken pox) Unknown Completed [facility] Zoster(Zostavax)(Sh ingles) Unknown Completed [facility] Pneumococcal 20 Conjugate, PCV20 (Prevnar 20) Unknown Completed [facility]atitis A Adult [facility] Influ[facility] Virus Vaccine Quad IM, Preserv and ABX Free 6 MO-64 YRS (FLUCELVAX) Unknown Completed [facility] SARS-COV-2 COVID 19 UMESH SUCROSE VACCINE 12+, [id number], 0.3 ML (30 MCG), IM PFIZER (LANGSTON TOP) Unknown Completed [facility] Pneumococcal 13 Conjugate, PCV13 (Prevnar 13) Unknown Completed [facility] Typhoid Vaccine, Vi Capsular Polysaccharide, IM Unknown Completed [facility] Influenza Virus Vaccine Quad IM 3+ YRS Unknown Completed [facility] Pneumococcal Polysaccharide, PPSV23 (PNEUMOVAX) Unknown Completed [facility] Influenza Virus Vaccine (3+ yrs) Unknown Completed [facility] Pneumococcal 13 Conjugate, PCV13 (Prevnar 13) Unknown Completed [facility] Pneumococcal Polysaccharide, PPSV23 (PNEUMOVAX) Unknown Completed [facility] TDAP Unknown Completed [facility] Zoster Vaccine Recombinant Unknown Completed [facility] Anthrax Vaccine Unknown Completed [facility] TDAP Unknown Completed [facility] SARS-COV-2 COVID-19 PFIZER VACCINE Unknown Completed [facility] SARS-COV-2 COVID-19 UMESH-SUCROSE VACCINE 12 YRS+, BIVALENT 0.3ML, IM, (PFIZER LANGSTON TOP) Unknown Completed [facility] HEP B, Adult Dosage Unknown Completed [facility] Influenza Virus Vaccine Nasal Unknown Completed [facility] Flu Split Virus, PSA Unknown Completed [facility] Influenza Virus Vaccine Unknown Completed [facility] Flu Whole Virus Unknown Completed [facility] Influenza Virus Vaccine Quad Nasal (Flumist) Unknown Completed [facility] Influenza, split virus, trivalent, PF (AFLURIA/FLUARIX/FL ULAVAL/FLUZONE) Unknown Completed [facility] MMR Unknown Completed [facility] Meningococcal Vaccine Unknown Completed [facility] Tetanus/Diptheria Unknown Completed Un [facility] PPD (TB) Unknown Completed [facility] Zoster Vaccine Recombinant Unknown Completed [facility] Smallpox Unknown Completed [facility] Varicella (varivax)(chicken pox) Unknown Completed [facility] Zoster(Zostavax)(Sh ingles) Unknown Completed [facility] Pneumococcal 20 Conjugate, PCV20 (Prevnar 20) Unknown Completed [facility]atitis A Adult [facility] Influ[facility] Virus Vaccine Quad IM, Preserv and ABX Free 6 MO-64 YRS (FLUCELVAX) Unknown Completed [facility] SARS-COV-2 COVID 19 UMESH SUCROSE VACCINE 12+, [id number], 0.3 ML (30 MCG), IM PFIZER (LANGSTON TOP) Unknown Completed [facility] Typhoid Vaccine, Vi Capsular Polysaccharide, IM Unknown Completed [facility] Influenza Virus Vaccine Quad IM 3+ YRS Unknown Completed [facility] Influenza Virus Vaccine (3+ yrs) Unknown Completed [facility] Pneumococcal 13 Conjugate, PCV13 (Prevnar 13) Unknown Completed [facility] Pneumococcal Polysaccharide, PPSV23 (PNEUMOVAX) Unknown Completed [facility] TDAP Unknown Completed [facility] Zoster Vaccine Recombinant Unknown Completed [facility] Anthrax Vaccine Unknown Completed [facility] SARS-COV-2 COVID-19 PFIZER VACCINE Unknown Completed [facility] SARS-COV-2 COVID-19 UMESH-SUCROSE VACCINE 12 YRS+, BIVALENT 0.3ML, IM, (PFIZER LANGSTON TOP) Unknown Completed [facility] HEP B, Adult Dosage Unknown Completed [facility] Influenza, Live, Trivalent, Intranasal (FLUMIST) Unknown Completed [facility] Flu Split Virus, PSA Unknown Completed [facility] Influenza Virus Vaccine Unknown Completed [facility] Flu Whole Virus Unknown Completed [facility] Influenza Virus Vaccine Quad Nasal (Flumist) Unknown Completed [facility] Influenza, split virus, trivalent, PF (AFLURIA/FLUARIX/FL ULAVAL/FLUZONE) Unknown Completed [facility] MMR Unknown Completed [facility] Anthrax Vaccine Unknown Completed [facility] Meningococcal Vaccine Unknown Completed [facility]anus[facility]heria [facility] Com[facility] Smallpox Unknown Completed [facility] Varicella (varivax)(chicken pox) Unknown Completed [facility] Zoster(Zostavax)(Sh ingles) Unknown Completed [facility] Pneumococcal 20 Conjugate, PCV20 (Prevnar 20) Unknown Completed [facility]atitis A Adult [facility] Influ[facility] Virus Vaccine Quad IM, Preserv and ABX Free 6 MO-64 YRS (FLUCELVAX) Unknown Completed [facility] SARS-COV-2 COVID 19 UMESH SUCROSE VACCINE 12+, [id number], 0.3 ML (30 MCG), IM PFIZER (LANGSTON TOP) Unknown Completed [facility] Typhoid Vaccine, Vi Capsular Polysaccharide, IM Unknown Completed [facility] SARS-COV-2 COVID-19 PFIZER VACCINE Unknown Completed [facility] SARS-COV-2 COVID-19 UMESH-SUCROSE VACCINE 12 YRS+, BIVALENT 0.3ML, IM, (PFIZER LANGSTON TOP) Unknown Completed [facility] HEP B, Adult Dosage Unknown Completed [facility] Influenza Virus Vaccine Nasal Unknown Completed [facility] Flu Split Virus, PSA Unknown Completed [facility] Influenza Virus Vaccine Unknown Completed [facility]ine [facility] Nasal (Flumist) Unknown Completed [facility] Completed [facility] Meningococcal Vaccine Unknown Completed [facility] Tetanus/Diptheria Unknown Completed Un [facility] PPD (TB) Unknown Completed [facility] Smallpox Unknown Completed [facility] Varicella (varivax)(chicken pox) Unknown Completed [facility] Zoster(Zostavax)(Sh ingles) Unknown Completed [facility] Pneumococcal 20 Conjugate, PCV20 (Prevnar 20) Unknown Completed [facility] Hepatitis A Adult [facility] Quad IM, Preserv and ABX Free 6 MO-64 YRS (FLUCELVAX) Unknown Completed [facility] SARS-COV-2 COVID 19 UMESH SUCROSE VACCINE 12+, [id number], 0.3 ML (30 MCG), IM PFIZER (LANGSTON TOP) Unknown Completed [facility] Influenza Virus Vaccine (3+ yrs) Unknown Completed [facility] Pneumococcal 13 Conjugate, PCV13 (Prevnar 13) Unknown Completed [facility] SARS-COV-2 COVID-19 UMESH-SUCROSE VACCINE 12 YRS+, BIVALENT 0.3ML, IM, (PFIZER LANGSTON TOP) Unknown Completed [facility] Influenza Virus Vaccine Unknown Completed [facility] Flu Whole Virus Unknown Completed [facility] Influenza Virus Vaccine Quad Nasal (Flumist) Unknown Completed [facility] Meningococcal Vaccine Unknown Completed [facility]ria [facility] Varicella (varivax)(chicken pox) Unknown Completed [facility] Zoster(Zostavax)(Sh ingles) Unknown Completed [facility] Pneumococcal 20 Conjugate, PCV20 (Prevnar 20) Unknown Completed [facility] Influenza Virus Vaccine Quad IM, Preserv and ABX Free 6 MO-64 YRS (FLUCELVAX) Unknown Completed [facility] SARS-COV-2 COVID 19 UMESH SUCROSE VACCINE 12+, [id number], 0.3 ML (30 MCG), IM PFIZER (LANGSTON TOP) Unknown Completed [facility] Influenza Virus Vaccine Quad IM 3+ YRS Unknown Completed [facility] Pneumococcal Polysaccharide, PPSV23 (PNEUMOVAX) Unknown Completed [facility] TDAP Unknown Completed [facility] Zoster Vaccine Recombinant Unknown Completed [facility] Anthrax Vaccine Unknown Completed [facility] SARS-COV-2 COVID-19 PFIZER VACCINE Unknown Completed [facility] HEP B, Adult Dosage Unknown Completed [facility] Influenza Virus Vaccine Nasal Unknown Completed [facility] Flu Split Virus, PSA Unknown Completed [facility] Flu Trivalent Unknown Completed [facility] MMR Unknown Completed [facility] PPD (TB) Unknown Completed [facility] Hepatitis A Adult Unknown [facility] Influ[facility] Vaccine Quad IM 3+ YRS Unknown Completed [facility] Influenza Virus Vaccine (3+ yrs) Unknown Completed [facility] Pneumococcal 13 Conjugate, PCV13 (Prevnar 13) Unknown Completed [facility] Pneumococcal Polysaccharide, PPSV23 (PNEUMOVAX) Unknown Completed [facility] TDAP Unknown Completed [facility] Zoster Vaccine Recombinant Unknown Completed [facility] Anthrax Vaccine Unknown Completed [facility] SARS-COV-2 COVID-19 PFIZER VACCINE Unknown Completed [facility] SARS-COV-2 COVID-19 UMESH-SUCROSE VACCINE 12 YRS+, BIVALENT 0.3ML, IM, (PFIZER LANGSTON TOP) Unknown Completed [facility] HEP B, Adult Dosage Unknown Completed [facility] Influenza Virus Vaccine Nasal Unknown Completed [facility] Flu Split Virus, PSA Unknown Completed [facility] Influenza Virus Vaccine Unknown Completed [facility] Flu Whole Virus Unknown Completed [facility] Influenza Virus Vaccine Quad Nasal (Flumist) Unknown Com[facility] Meningococcal Vaccine Unknown Completed [facility] Tetanus/Diptheria Unknown Completed Un [facility] PPD (TB) Unknown Completed [facility] Smallpox Unknown Completed [facility] Varicella (varivax)(chicken pox) Unknown Completed [facility] Zoster(Zostavax)(Sh ingles) Unknown Completed [facility] Pneumococcal 20 Conjugate, PCV20 (Prevnar 20) Unknown Completed [facility]atitis [facility] Adult [facility] Quad IM, Preserv and ABX Free 6 MO-64 YRS (FLUCELVAX) Unknown Completed [facility] SARS-COV-2 COVID 19 UMESH SUCROSE VACCINE 12+, [id number], 0.3 ML (30 MCG), IM PFIZER (LANGSTON TOP) Unknown Completed [facility] Influenza Virus Vaccine Quad IM 3+ YRS Unknown Completed [facility] Influenza Virus Vaccine (3+ yrs) Unknown Completed [facility] Pneumococcal 13 Conjugate, PCV13 (Prevnar 13) Unknown Completed [facility] Pneumococcal Polysaccharide, PPSV23 (PNEUMOVAX) Unknown Completed [facility] TDAP Unknown Completed [facility] Zoster Vaccine Recombinant Unknown Completed [facility] Anthrax Vaccine Unknown Completed [facility] SARS-COV-2 COVID-19 PFIZER VACCINE Unknown Completed [facility] SARS-COV-2 COVID-19 UMESH-SUCROSE VACCINE 12 YRS+, BIVALENT 0.3ML, IM, (PFIZER LANGSTON TOP) Unknown Completed [facility] HEP B, Adult Dosage Unknown Completed [facility] Influenza Virus Vaccine Nasal Unknown Completed [facility] Flu Split Virus, PSA Unknown Completed [facility] Influenza Virus Vaccine Unknown Completed [facility] Flu Whole Virus Unknown Completed [facility] Influenza Virus Vaccine Quad Nasal (Flumist) Unknown Completed [facility] Meningococcal Vaccine Unknown Completed [facility] Tetanus/Diptheria Unknown [facility] Completed [facility] Smallpox Unknown Completed [facility] Varicella (varivax)(chicken pox) Unknown Completed [facility] Zoster(Zostavax)(Kourtney ingemelia) Unknown Completed [facility] Pneumococcal 20 Conjugate, PCV20 (Prevnar 20) Unknown Completed [facility] Hepatitis A Adult Unknown [facility] Influ[facility] Virus Vaccine Quad IM, Preserv and ABX Free 6 MO-64 YRS (FLUCELVAX) Unknown Completed [facility] SARS-COV-2 COVID 19 UMESH SUCROSE VACCINE 12+, [id number], 0.3 ML (30 MCG), IM PFIZER (LANGSTON TOP) Unknown Completed [facility] Influenza Virus Vaccine Quad IM 3+ YRS Unknown Completed [facility] Influenza Virus Vaccine (3+ yrs) Unknown Completed [facility] Pneumococcal 13 Conjugate, PCV13 (Prevnar 13) Unknown Completed [facility] Pneumococcal Polysaccharide, PPSV23 (PNEUMOVAX) Unknown Completed [facility] TDAP Unknown Completed [facility] Zoster Vaccine Recombinant Unknown Completed [facility] Anthrax Vaccine Unknown Completed [facility] SARS-COV-2 COVID-19 PFIZER VACCINE Unknown Completed [facility] SARS-COV-2 COVID-19 UMESH-SUCROSE VACCINE 12 YRS+, BIVALENT 0.3ML, IM, (PFIZER LANGSTON TOP) Unknown Completed [facility] HEP B, Adult Dosage Unknown Completed [facility] Influenza Virus Vaccine Nasal Unknown Completed [facility] Flu Split Virus, PSA Unknown Completed [facility] Influenza Virus Vaccine Unknown Completed [facility] Flu Whole Virus Unknown Completed [facility] Influenza Virus Vaccine Quad Nasal (Flumist) Unknown Completed [facility] Flu Trivalent Unknown Completed [facility] MMR Unknown Completed [facility] Meningococcal Vaccine Unknown Completed [facility] Tetanus/Diptheria Unknown Completed [facility] PPD (TB) Unknown Completed [facility] Smallpox Unknown Completed [facility] Varicella (varivax)(chicken pox) Unknown Completed [facility] Zoster(Zostavax)(Kourtney albert) Unknown Completed [facility] Pneumococcal 20 Conjugate, PCV20 (Prevnar 20) Unknown Completed [facility] Hepatitis A Adult Unknown [facility] Influ[facility] Virus Vaccine Quad IM, Preserv and ABX Free 6 MO-64 YRS (FLUCELVAX) Unknown Completed [facility] SARS-COV-2 COVID 19 UMESH SUCROSE VACCINE 12+, [id number], 0.3 ML (30 MCG), IM PFIZER (LANGSTON TOP) Unknown Completed [facility] Influenza Virus Vaccine Quad IM 3+ YRS Unknown Completed [facility] Influenza Virus Vaccine (3+ yrs) Unknown Completed [facility] Pneumococcal 13 Conjugate, PCV13 (Prevnar 13) Unknown Completed [facility] Pneumococcal Polysaccharide, PPSV23 (PNEUMOVAX) Unknown Completed [facility] TDAP Unknown Completed [facility] Zoster Vaccine Recombinant Unknown Completed [facility] Anthrax Vaccine Unknown Completed [facility] SARS-COV-2 COVID-19 PFIZER VACCINE Unknown Completed [facility] SARS-COV-2 COVID-19 UMESH-SUCROSE VACCINE 12 YRS+, BIVALENT 0.3ML, IM, (PFIZER LANGSTON TOP) Unknown Completed [facility] HEP B, Adult Dosage Unknown Completed [facility] Influenza Virus Vaccine Nasal Unknown Completed [facility] Flu Split Virus, PSA Unknown Completed [facility] Influenza Virus Vaccine Unknown Completed [facility] Flu Whole Virus Unknown Completed [facility] Influenza Virus Vaccine Quad Nasal (Flumist) Unknown Completed [facility] Flu Trivalent Unknown Completed [facility] MMR Unknown Completed [facility] Meningococcal Vaccine Unknown Completed [facility] Tetanus/Diptheria Unknown Completed [facility] PPD (TB) Unknown Completed [facility] Smallpox Unknown Completed [facility] Varicella (varivax)(chicken pox) Unknown Completed [facility] Zoster(Zostavax)(Sh ingles) Unknown Completed [facility] Pneumococcal 20 Conjugate, PCV20 (Prevnar 20) Unknown Completed [facility] Hepatitis A Adult Unknown [facility] Influ[facility] Virus Vaccine Quad IM, Preserv and ABX Free 6 MO-64 YRS (FLUCELVAX) Unknown Completed [facility] SARS-COV-2 COVID 19 UMEHS SUCROSE VACCINE 12+, [id number], 0.3 ML (30 MCG), IM PFIZER (LANGSTON TOP) Unknown Completed [facility] Influenza Virus Vaccine Quad IM 3+ YRS Unknown Completed [facility] Influenza Virus Vaccine (3+ yrs) Unknown Completed [facility] Pneumococcal 13 Conjugate, PCV13 (Prevnar 13) Unknown Completed [facility] Pneumococcal Polysaccharide, PPSV23 (PNEUMOVAX) Unknown Completed [facility] TDAP Unknown Completed [facility] Zoster Vaccine Recombinant Unknown Completed [facility] Anthrax Vaccine Unknown Completed [facility] SARS-COV-2 COVID-19 PFIZER VACCINE Unknown Completed [facility] SARS-COV-2 COVID-19 UMESH-SUCROSE VACCINE 12 YRS+, BIVALENT 0.3ML, IM, (PFIZER LANGSTON TOP) Unknown Completed [facility] HEP B, Adult Dosage Unknown Completed [facility] Influenza Virus Vaccine Nasal Unknown Completed [facility] Flu Split Virus, PSA Unknown Completed [facility] Influenza Virus Vaccine Unknown Completed [facility] Flu Whole Virus Unknown Completed [facility] Influenza Virus Vaccine Quad Nasal (Flumist) Unknown Completed [facility] Flu Trivalent Unknown Completed [facility] MMR Unknown Completed [facility] Meningococcal Vaccine Unknown Completed [facility] Tetanus/Diptheria Unknown Completed [facility] PPD (TB) Unknown Completed [facility] Smallpox Unknown Completed [facility] Varicella (varivax)(chicken pox) Unknown Completed [facility] Zoster(Zostavax)(Sh ingles) Unknown Completed [facility] Pneumococcal 20 Conjugate, PCV20 (Prevnar 20) Unknown Completed [facility] Hepatitis A Adult Unknown [facility] Influ[facility] Virus Vaccine Quad IM, Preserv and ABX Free 6 MO-64 YRS (FLUCELVAX) Unknown Completed [facility] SARS-COV-2 COVID 19 UMESH SUCROSE VACCINE 12+, [id number], 0.3 ML (30 MCG), IM PFIZER (LANGSTON TOP) Unknown Completed [facility] Influenza Virus Vaccine (3+ yrs) Unknown Completed [facility] Pneumococcal 13 Conjugate, PCV13 (Prevnar 13) Unknown Completed [facility] SARS-COV-2 COVID-19 UMESH-SUCROSE VACCINE 12 YRS+, BIVALENT 0.3ML, IM, (PFIZER LANGSTON TOP) Unknown Completed [facility] Influenza Virus Vaccine Unknown Completed [facility] Flu Whole Virus Unknown Completed [facility] Influenza Virus Vaccine Quad Nasal (Flumist) Unknown Completed [facility] Meningococcal Vaccine Unknown Completed [facility]anus[facility]Diptheria [facility] Varicella (varivax)(chicken pox) Unknown Completed [facility] Zoster(Zostavax)(Sh ingles) Unknown Completed [facility] Pneumococcal 20 Conjugate, PCV20 (Prevnar 20) Unknown Completed [facility] Influenza Virus Vaccine Quad IM, Preserv and ABX Free 6 MO-64 YRS (FLUCELVAX) Unknown Completed [facility] SARS-COV-2 COVID 19 UMESH SUCROSE VACCINE 12+, [id number], 0.3 ML (30 MCG), IM PFIZER (LANGSTON TOP) Unknown Completed [facility] Influenza Virus Vaccine Quad IM 3+ YRS Unknown Completed [facility] Pneumococcal Polysaccharide, PPSV23 (PNEUMOVAX) Unknown Completed [facility] TDAP Unknown Completed [facility] Zoster Vaccine Recombinant Unknown Completed [facility] Anthrax Vaccine Unknown Completed [facility] SARS-COV-2 COVID-19 PFIZER VACCINE Unknown Completed [facility] HEP B, Adult Dosage Unknown Completed [facility] Influenza Virus Vaccine Nasal Unknown Completed [facility] Flu Split Virus, PSA Unknown Completed [facility] Flu Trivalent Unknown Completed [facility] MMR Unknown Completed [facility] PPD (TB) Unknown Completed [facility] Hepatitis A Adult [facility] Influ[facility] Vaccine Quad IM 3+ YRS Unknown Completed [facility] Influenza Virus Vaccine (3+ yrs) Unknown Completed [facility] Pneumococcal 13 Conjugate, PCV13 (Prevnar 13) Unknown Completed [facility] Pneumococcal Polysaccharide, PPSV23 (PNEUMOVAX) Unknown Completed [facility] TDAP Unknown Completed [facility] Zoster Vaccine Recombinant Unknown Completed [facility] Anthrax Vaccine Unknown Completed [facility] SARS-COV-2 COVID-19 PFIZER VACCINE Unknown Completed [facility] SARS-COV-2 COVID-19 UMESH-SUCROSE VACCINE 12 YRS+, BIVALENT 0.3ML, IM, (PFIZER LANGSTON TOP) Unknown Completed [facility] HEP B, Adult Dosage Unknown Completed [facility] Influenza Virus Vaccine Nasal Unknown Completed [facility] Flu Split Virus, PSA Unknown Completed [facility] Influenza Virus Vaccine Unknown Completed [facility] Flu Whole Virus Unknown Completed [facility] Influenza Virus Vaccine Quad Nasal (Flumist) Unknown Completed [facility]alent [facility] Meningococcal Vaccine Unknown Completed [facility] Tetanus/Diptheria Unknown Completed [facility] PPD (TB) Unknown Completed [facility] Smallpox Unknown Completed [facility] Varicella (varivax)(chicken pox) Unknown Completed [facility] Zoster(Zostavax)(Sh ingles) Unknown Completed [facility] Pneumococcal 20 Conjugate, PCV20 (Prevnar 20) Unknown Completed [facility] Hepatitis A Adult Unknown Completed Un [facility] Influenza Virus Vaccine Quad IM, Preserv and ABX Free 6 MO-64 YRS (FLUCELVAX) Unknown Completed [facility] SARS-COV-2 COVID 19 UMESH SUCROSE VACCINE 12+, [id number], 0.3 ML (30 MCG), IM PFIZER (LANGSTON TOP) Unknown Completed [facility] Influenza Virus Vaccine Quad IM 3+ YRS Unknown Completed [facility] Influenza Virus Vaccine (3+ yrs) Unknown Completed [facility] Pneumococcal 13 Conjugate, PCV13 (Prevnar 13) Unknown Completed [facility] Pneumococcal Polysaccharide, PPSV23 (PNEUMOVAX) Unknown Completed [facility] TDAP Unknown Completed [facility] Zoster Vaccine Recombinant Unknown Completed [facility] Anthrax Vaccine Unknown Completed [facility] SARS-COV-2 COVID-19 PFIZER VACCINE Unknown Completed [facility] SARS-COV-2 COVID-19 UMESH-SUCROSE VACCINE 12 YRS+, BIVALENT 0.3ML, IM, (PFIZER LANGSTON TOP) Unknown Completed [facility] HEP B, Adult Dosage Unknown Completed [facility] Influenza Virus Vaccine Nasal Unknown Completed [facility] Flu Split Virus, PSA Unknown Completed [facility] Influenza Virus Vaccine Unknown Completed [facility] Flu Whole Virus Unknown Completed [facility] Influenza Virus Vaccine Quad Nasal (Flumist) Unknown Completed [facility] Flu [facility]rivalent [facility] Meningococcal Vaccine Unknown Completed [facility] Tetanus/Diptheria Unknown Completed [facility] PPD (TB) Unknown Completed [facility] Smallpox Unknown Completed [facility] Varicella (varivax)(chicken pox) Unknown Completed [facility] Zoster(Zostavax)(Sh ingles) Unknown Completed [facility] Pneumococcal 20 Conjugate, PCV20 (Prevnar 20) Unknown Completed [facility] Hepatitis A Adult Unknown [facility] Influ[facility] Virus Vaccine Quad IM, Preserv and ABX Free 6 MO-64 YRS (FLUCELVAX) Unknown Completed [facility] SARS-COV-2 COVID 19 UMESH SUCROSE VACCINE 12+, [id number], 0.3 ML (30 MCG), IM PFIZER (LANGSTON TOP) Unknown Completed [facility] Influenza Virus Vaccine Quad IM 3+ YRS Unknown Completed [facility] Influenza Virus Vaccine (3+ yrs) Unknown Completed [facility] Pneumococcal 13 Conjugate, PCV13 (Prevnar 13) Unknown Completed [facility] Pneumococcal Polysaccharide, PPSV23 (PNEUMOVAX) Unknown Completed [facility] TDAP Unknown Completed [facility] Zoster Vaccine Recombinant Unknown Completed [facility] Anthrax Vaccine Unknown Completed [facility] SARS-COV-2 COVID-19 PFIZER VACCINE Unknown Completed [facility] SARS-COV-2 COVID-19 UMESH-SUCROSE VACCINE 12 YRS+, BIVALENT 0.3ML, IM, (PFIZER LANGSTON TOP) Unknown Completed [facility] HEP B, Adult Dosage Unknown Completed [facility] Influenza Virus Vaccine Nasal Unknown Completed [facility] Flu Split Virus, PSA Unknown Completed [facility] Influenza Virus Vaccine Unknown Completed [facility] Flu Whole Virus [facility]ine Quad Nasal (Flumist) Unknown Completed [facility]rivalent [facility] Meningococcal Vaccine Unknown Completed [facility] Tetanus/Diptheria Unknown Completed Un [facility] PPD (TB) Unknown Completed [facility] Smallpox Unknown Completed [facility] Varicella (varivax)(chicken pox) Unknown Completed [facility] Zoster(Zostavax)(Sh ingles) Unknown Completed [facility] Pneumococcal 20 Conjugate, PCV20 (Prevnar 20) Unknown Completed [facility] Hepatitis A Adult Unknown [facility] Influ[facility] Virus Vaccine Quad IM, Preserv and ABX Free 6 MO-64 YRS (FLUCELVAX) Unknown Completed [facility] SARS-COV-2 COVID 19 UMESH SUCROSE VACCINE 12+, [id number], 0.3 ML (30 MCG), IM PFIZER (LANGSTON TOP) Unknown Completed [facility] Influenza Virus Vaccine Quad IM 3+ YRS Unknown Completed [facility] Influenza Virus Vaccine (3+ yrs) Unknown Completed [facility] Pneumococcal 13 Conjugate, PCV13 (Prevnar 13) Unknown Completed [facility] Pneumococcal Polysaccharide, PPSV23 (PNEUMOVAX) Unknown Completed [facility] TDAP Unknown Completed [facility] Zoster Vaccine Recombinant Unknown Completed [facility] Anthrax Vaccine Unknown Completed [facility] SARS-COV-2 COVID-19 PFIZER VACCINE Unknown Completed [facility] SARS-COV-2 COVID-19 UMESH-SUCROSE VACCINE 12 YRS+, BIVALENT 0.3ML, IM, (PFIZER LANGSTON TOP) Unknown Completed [facility] HEP B, Adult Dosage Unknown Completed [facility] Influenza Virus Vaccine Nasal Unknown Completed [facility] Flu Split Virus, PSA Unknown Completed [facility] Influenza Virus Vaccine Unknown Completed [facility] Flu Whole Virus [facility] Vaccine Quad Nasal (Flumist) Unknown Completed [facility] Flu Trivalent Unknown Completed [facility] MMR Unknown Completed [facility] Meningococcal Vaccine Unknown Completed [facility] Tetanus/Diptheria Unknown Completed [facility] PPD (TB) Unknown Completed [facility] Smallpox Unknown Completed [facility] Varicella (varivax)(chicken pox) Unknown Completed [facility] Zoster(Zostavax)(Sh ingles) Unknown Completed [facility] Pneumococcal 20 Conjugate, PCV20 (Prevnar 20) Unknown Completed [facility] Hepatitis A Adult Unknown Completed [facility] Influenza Virus Vaccine Quad IM, Preserv and ABX Free 6 MO-64 YRS (FLUCELVAX) Unknown Completed [facility] SARS-COV-2 COVID 19 UMESH SUCROSE VACCINE 12+, [id number], 0.3 ML (30 MCG), IM PFIZER (LANGSTON TOP) Unknown Completed [facility] Influenza Virus Vaccine Quad IM 3+ YRS Unknown Completed [facility] Influenza Virus Vaccine (3+ yrs) Unknown Completed [facility] Pneumococcal 13 Conjugate, PCV13 (Prevnar 13) Unknown Completed [facility] Pneumococcal Polysaccharide, PPSV23 (PNEUMOVAX) Unknown Completed [facility] TDAP Unknown Completed [facility] Zoster Vaccine Recombinant Unknown Completed [facility] Anthrax Vaccine Unknown Completed [facility] SARS-COV-2 COVID-19 PFIZER VACCINE Unknown Completed [facility] SARS-COV-2 COVID-19 UMESH-SUCROSE VACCINE 12 YRS+, BIVALENT 0.3ML, IM, (PFIZER LANGSTON TOP) Unknown Completed [facility] HEP B, Adult Dosage Unknown Completed [facility] Influenza Virus Vaccine Nasal Unknown Completed [facility] Flu Split Virus, PSA Unknown Completed [facility] Influenza Virus Vaccine Unknown Completed [facility] Flu Whole Virus Unknown Completed [facility] Influenza Virus Vaccine Quad Nasal (Flumist) Unknown Completed [facility] Flu Trivalent Unknown Completed [facility] MMR Unknown Completed [facility] Meningococcal Vaccine Unknown Completed [facility] Tetanus/Diptheria Unknown Completed Un [facility] PPD (TB) Unknown Completed [facility] Smallpox Unknown Completed [facility] Varicella (varivax)(chicken pox) Unknown Completed [facility] Zoster(Zostavax)(Sh ingles) Unknown Completed [facility] Pneumococcal 20 Conjugate, PCV20 (Prevnar 20) Unknown Completed [facility] Hepatitis A Adult Unknown Completed Un [facility] Influenza Virus Vaccine Quad IM, Preserv and ABX Free 6 MO-64 YRS (FLUCELVAX) Unknown Completed [facility] SARS-COV-2 COVID 19 UMESH SUCROSE VACCINE 12+, [id number], 0.3 ML (30 MCG), IM PFIZER (LANGSTON TOP) Unknown Completed [facility] Influenza Virus Vaccine Quad IM 3+ YRS Unknown Completed [facility] Influenza Virus Vaccine (3+ yrs) Unknown Completed [facility] Pneumococcal 13 Conjugate, PCV13 (Prevnar 13) Unknown Completed [facility] Pneumococcal Polysaccharide, PPSV23 (PNEUMOVAX) Unknown Completed [facility] TDAP Unknown Completed [facility] Zoster Vaccine Recombinant Unknown Completed [facility] Anthrax Vaccine Unknown Completed [facility] SARS-COV-2 COVID-19 PFIZER VACCINE Unknown Completed [facility] SARS-COV-2 COVID-19 UMESH-SUCROSE VACCINE 12 YRS+, BIVALENT 0.3ML, IM, (PFIZER LANGSTON TOP) Unknown Completed [facility] HEP B, Adult Dosage Unknown Completed [facility] Influenza Virus Vaccine Nasal Unknown Completed [facility] Flu Split Virus, PSA Unknown Completed [facility] Influenza Virus Vaccine Unknown Completed [facility] Flu Whole Virus Unknown Completed [facility] Influenza Virus Vaccine Quad Nasal (Flumist) Unknown Completed [facility] Flu Trivalent Unknown Completed [facility] MMR Unknown Completed [facility] Meningococcal Vaccine Unknown Completed [facility] Tetanus/Diptheria Unknown Completed [facility] PPD (TB) Unknown Completed [facility] Smallpox Unknown Completed [facility] Varicella (varivax)(chicken pox) Unknown Completed [facility] Zoster(Zostavax)(Sh ingles) Unknown Completed [facility] Pneumococcal 20 Conjugate, PCV20 (Prevnar 20) Unknown Completed [facility] Hepatitis A Adult Unknown [facility] Influ[facility] Vaccine Quad IM, Preserv and ABX Free 6 MO-64 YRS (FLUCELVAX) Unknown Completed [facility] SARS-COV-2 COVID 19 UMESH SUCROSE VACCINE , , 0.3 ML (30 MCG), IM PFIZER (LANGSTON TOP) Unknown Completed [facility] Influenza Virus Vaccine Quad IM 3+ YRS Unknown Completed [facility] Influenza Virus Vaccine (3+ yrs) Unknown Completed [facility] Pneumococcal 13 Conjugate, PCV13 (Prevnar 13) Unknown Completed [facility] Pneumococcal Polysaccharide, PPSV23 (PNEUMOVAX) Unknown Completed [facility] TDAP Unknown Completed [facility] Zoster Vaccine Recombinant Unknown Completed [facility] Anthrax Vaccine Unknown Completed [facility] SARS-COV-2 COVID-19 PFIZER VACCINE Unknown Completed [facility] SARS-COV-2 COVID-19 UMESH-SUCROSE VACCINE 12 YRS+, BIVALENT 0.3ML, IM, (PFIZER LANGSTON TOP) Unknown Completed [facility] HEP B, Adult Dosage Unknown Completed [facility] Influenza Virus Vaccine Nasal Unknown Completed [facility] Flu Split Virus, PSA Unknown Completed [facility] Influenza Virus Vaccine Unknown Completed [facility] Flu Whole Virus Unknown Completed [facility] Influenza Virus Vaccine Quad Nasal (Flumist) Unknown Completed [facility] Flu Trivalent Unknown Completed [facility] MMR Unknown Completed [facility] Meningococcal Vaccine Unknown Completed [facility] Tetanus/Diptheria Unknown Completed [facility] PPD (TB) Unknown Completed [facility] Smallpox Unknown Completed [facility] Varicella (varivax)(chicken pox) Unknown Completed [facility] Zoster(Zostavax)(Sh ingles) Unknown Completed [facility] Pneumococcal 20 Conjugate, PCV20 (Prevnar 20) Unknown Completed [facility] Hepatitis A Adult Unknown [facility] Influenza Virus Vaccine Quad IM, Preserv and ABX Free 6 MO-64 YRS (FLUCELVAX) Unknown Completed [facility] SARS-COV-2 COVID 19 UMESH SUCROSE VACCINE 12+, [id number], 0.3 ML (30 MCG), IM PFIZER (LANGSTON TOP) Unknown Completed [facility] Influenza Virus Vaccine Quad IM 3+ YRS Unknown Completed [facility] Influenza Virus Vaccine (3+ yrs) Unknown Completed [facility] Pneumococcal 13 Conjugate, PCV13 (Prevnar 13) Unknown Completed [facility] Pneumococcal Polysaccharide, PPSV23 (PNEUMOVAX) Unknown Completed [facility] TDAP Unknown Completed [facility] Zoster Vaccine Recombinant Unknown Completed [facility] Anthrax Vaccine Unknown Completed [facility] SARS-COV-2 COVID-19 PFIZER VACCINE Unknown Completed [facility] SARS-COV-2 COVID-19 UMESH-SUCROSE VACCINE 12 YRS+, BIVALENT 0.3ML, IM, (PFIZER LANGSTON TOP) Unknown Completed [facility] HEP B, Adult Dosage Unknown Completed [facility] Influenza Virus Vaccine Nasal Unknown Completed [facility] Flu Split Virus, PSA Unknown Completed [facility] Influenza Virus Vaccine Unknown Completed [facility] Flu Whole Virus Unknown Completed [facility] Influenza Virus Vaccine Quad Nasal (Flumist) Unknown Completed [facility] Flu Trivalent Unknown Completed [facility] MMR Unknown Completed [facility] Meningococcal Vaccine Unknown Completed [facility] Tetanus/Diptheria Unknown Completed [facility] PPD (TB) Unknown Completed [facility] Smallpox Unknown Completed [facility] Varicella (varivax)(chicken pox) Unknown Completed [facility] Zoster(Zostavax)(Sh ingles) Unknown Completed [facility] Pneumococcal 20 Conjugate, PCV20 (Prevnar 20) Unknown Completed [facility] Hepatitis A Adult Unknown Completed [facility] Influenza Virus Vaccine Quad IM, Preserv and ABX Free 6 MO-64 YRS (FLUCELVAX) Unknown Completed [facility] SARS-COV-2 COVID 19 UMESH SUCROSE VACCINE 12+, [id number], 0.3 ML (30 MCG), IM PFIZER (LANGSTON TOP) Unknown Completed [facility] Influenza Virus Vaccine (3+ yrs) Unknown Completed [facility] Pneumococcal 13 Conjugate, PCV13 (Prevnar 13) Unknown Completed [facility] SARS-COV-2 COVID-19 UMESH-SUCROSE VACCINE 12 YRS+, BIVALENT 0.3ML, IM, (PFIZER LANGSTON TOP) Unknown Completed [facility] Influenza Virus Vaccine Unknown Completed [facility] Flu Whole Virus Unknown Completed [facility] Influenza Virus Vaccine Quad Nasal (Flumist) Unknown Completed [facility] Meningococcal Vaccine Unknown Completed [facility]anus[facility]Diptheria [facility] Varicella (varivax)(chicken pox) Unknown Completed [facility] Zoster(Zostavax)( ingles) Unknown Completed [facility] Pneumococcal 20 Conjugate, PCV20 (Prevnar 20) Unknown Completed [facility] Influenza Virus Vaccine Quad IM, Preserv and ABX Free 6 MO-64 YRS (FLUCELVAX) Unknown Completed [facility] SARS-COV-2 COVID 19 UMESH SUCROSE VACCINE 12+, [id number], 0.3 ML (30 MCG), IM PFIZER (LANGSTON TOP) Unknown Completed [facility] Influenza Virus Vaccine Quad IM 3+ YRS Unknown Completed [facility] Pneumococcal Polysaccharide, PPSV23 (PNEUMOVAX) Unknown Completed [facility] TDAP Unknown Completed [facility] Zoster Vaccine Recombinant Unknown Completed [facility] Anthrax Vaccine [facility]-19 PFIZER VACCINE Unknown Completed [facility] HEP B, Adult Dosage Unknown Completed [facility] Influenza Virus Vaccine Nasal Unknown Completed [facility] Flu Split Virus, PSA Unknown Completed [facility] Flu Trivalent [facility] M[facility] Completed [facility] PPD (TB) Unknown Completed [facility] Hepatitis A Adult [facility] Vacc[facility] (3+ yrs) Unknown Completed [facility] Pneumococcal 13 Conjugate, PCV13 (Prevnar 13) Unknown Completed [facility] SARS-COV-2 COVID-19 UMESH-SUCROSE VACCINE 12 YRS+, BIVALENT 0.3ML, IM, (PFIZER LANGSTON TOP) Unknown Completed [facility] Influenza Virus Vaccine Unknown Completed [facility] Flu Whole Virus [facility] Influ[facility] Vaccine Quad Nasal (Flumist) Unknown Completed [facility] Meningococcal Vaccine Unknown Completed [facility] Tetanus/Diptheria Unknown [facility]pox [facility] Completed [facility] Varicella (varivax)(chicken pox) Unknown Completed [facility] Zoster(Zostavax)(Sh ingles) Unknown Completed [facility] Pneumococcal 20 Conjugate, PCV20 (Prevnar 20) Unknown Completed [facility] Influenza Virus Vaccine Quad IM, Preserv and ABX Free 6 MO-64 YRS (FLUCELVAX) Unknown Completed [facility] SARS-COV-2 COVID 19 UMESH SUCROSE VACCINE 12+, [id number], 0.3 ML (30 MCG), IM PFIZER (LANGSTON TOP) Unknown Completed [facility] Influenza Virus Vaccine Quad IM 3+ YRS Unknown Completed [facility] Pneumococcal Polysaccharide, PPSV23 (PNEUMOVAX) Unknown Completed [facility] TDAP Unknown Completed [facility] Zoster Vaccine Recombinant Unknown Completed [facility] Anthrax Vaccine Unknown Completed [facility] SARS-COV-2 COVID-19 PFIZER VACCINE Unknown Completed [facility] HEP B, Adult Dosage Unknown Completed [facility] Influenza Virus Vaccine Nasal Unknown Completed [facility] Flu Split Virus, PSA Unknown Completed [facility] Flu Trivalent Unknown Completed [facility] MMR Unknown Completed [facility] PPD (TB) Unknown Completed [facility] Hepatitis A Adult [facility] Influ[facility] Virus Vaccine Quad IM 3+ YRS Unknown Completed [facility] Influenza Virus Vaccine (3+ yrs) Unknown Completed [facility] Pneumococcal 13 Conjugate, PCV13 (Prevnar 13) Unknown Completed [facility] Pneumococcal Polysaccharide, PPSV23 (PNEUMOVAX) Unknown Completed [facility] TDAP Unknown Completed [facility] Zoster Vaccine Recombinant Unknown Completed [facility] Anthrax Vaccine Unknown Completed [facility] SARS-COV-2 COVID-19 PFIZER VACCINE Unknown Completed [facility] SARS-COV-2 COVID-19 UMESH-SUCROSE VACCINE 12 YRS+, BIVALENT 0.3ML, IM, (PFIZER LANGSTON TOP) Unknown Completed [facility] HEP B, Adult Dosage Unknown Completed [facility] Influenza Virus Vaccine Nasal Unknown Completed [facility] Flu Split Virus, PSA Unknown Completed [facility] Influenza Virus Vaccine Unknown Completed [facility] Flu Whole Virus Unknown [facility] Influenza Virus Vaccine Quad Nasal (Flumist) Unknown Completed [facility]alent [facility] Meningococcal Vaccine Unknown Completed [facility] Tetanus/Diptheria Unknown Completed [facility] PPD (TB) Unknown Completed [facility] Smallpox Unknown Completed [facility] Varicella (varivax)(chicken pox) Unknown Completed [facility] Zoster(Zostavax)(Sh ingles) Unknown Completed [facility] Pneumococcal 20 Conjugate, PCV20 (Prevnar 20) Unknown Completed [facility] Hepatitis A Adult Unknown [facility] Influenza Virus Vaccine Quad IM, Preserv and ABX Free 6 MO-64 YRS (FLUCELVAX) Unknown Completed [facility] SARS-COV-2 COVID 19 UMESH SUCROSE VACCINE 12+, [id number], 0.3 ML (30 MCG), IM PFIZER (LANGSTON TOP) Unknown Completed [facility] Influenza Virus Vaccine Quad IM 3+ YRS Unknown Completed [facility] Influenza Virus Vaccine (3+ yrs) Unknown Completed [facility] Pneumococcal 13 Conjugate, PCV13 (Prevnar 13) Unknown Completed [facility] Pneumococcal Polysaccharide, PPSV23 (PNEUMOVAX) Unknown Completed [facility] TDAP Unknown Completed [facility] Zoster Vaccine Recombinant Unknown Completed [facility] Anthrax Vaccine Unknown Completed [facility] Influenza Virus Vaccine Quad IM 3+ YRS Unknown Completed [facility] Influenza Virus Vaccine (3+ yrs) Unknown Completed [facility] Pneumococcal 13 Conjugate, PCV13 (Prevnar 13) Unknown Completed [facility] Pneumococcal Polysaccharide, PPSV23 (PNEUMOVAX) Unknown Completed [facility] TDAP Unknown Completed [facility] Zoster Vaccine Recombinant Unknown Completed [facility] Anthrax Vaccine Unknown Completed [facility] SARS-COV-2 COVID-19 PFIZER VACCINE Unknown Completed [facility] SARS-COV-2 COVID-19 UMESH-SUCROSE VACCINE 12 YRS+, BIVALENT 0.3ML, IM, (PFIZER LANGSTON TOP) Unknown Completed [facility] HEP B, Adult Dosage Unknown Completed [facility] Influenza Virus Vaccine Nasal Unknown Completed [facility] Flu Split Virus, PSA Unknown Completed [facility] Influenza Virus Vaccine Unknown Completed [facility] Flu Whole Virus Unknown [facility] Influenza Virus Vaccine Quad Nasal (Flumist) Unknown Completed [facility] Flu Trivalent [facility] MMR Unknown Completed [facility] Meningococcal Vaccine Unknown Completed [facility] Tetanus/Diptheria Unknown Completed [facility] PPD (TB) Unknown Completed [facility] Smallpox Unknown Completed [facility] Varicella (varivax)(chicken pox) Unknown Completed [facility] Zoster(Zostavax)(Sh ingles) Unknown Completed [facility] Pneumococcal 20 Conjugate, PCV20 (Prevnar 20) Unknown Completed [facility] Hepatitis A Adult Unknown [facility] Influenza Virus Vaccine Quad IM, Preserv and ABX Free 6 MO-64 YRS (FLUCELVAX) Unknown Completed [facility] SARS-COV-2 COVID 19 UMESH SUCROSE VACCINE 12+, [id number], 0.3 ML (30 MCG), IM PFIZER (LANGSTON TOP) Unknown Completed [facility] SARS-COV-2 COVID-19 PFIZER VACCINE Unknown Completed [facility] Influenza Virus Vaccine Quad IM 3+ YRS Unknown Completed [facility] Influenza Virus Vaccine (3+ yrs) Unknown Completed [facility] Pneumococcal 13 Conjugate, PCV13 (Prevnar 13) Unknown Completed [facility] Pneumococcal Polysaccharide, PPSV23 (PNEUMOVAX) Unknown Completed [facility] TDAP Unknown Completed [facility] SARS-COV-2 COVID-19 UMESH-SUCROSE VACCINE 12 YRS+, BIVALENT 0.3ML, IM, (PFIZER LANGSTON TOP) Unknown Completed [facility] Zoster Vaccine Recombinant Unknown Completed [facility] Anthrax Vaccine Unknown Completed [facility] HEP B, Adult Dosage Unknown Completed [facility] SARS-COV-2 COVID-19 PFIZER VACCINE Unknown Completed [facility] SARS-COV-2 COVID-19 UMESH-SUCROSE VACCINE 12 YRS+, BIVALENT 0.3ML, IM, (PFIZER LANGSTON TOP) Unknown Completed [facility] HEP B, Adult Dosage Unknown Completed [facility] Influenza Virus Vaccine Nasal Unknown Completed [facility] Flu Split Virus, PSA Unknown Completed [facility] Influenza Virus Vaccine Unknown Completed [facility] Flu Whole Virus Unknown Completed [facility] Influenza Virus Vaccine Quad Nasal (Flumist) Unknown Completed [facility] Flu Trivalent Unknown Completed [facility] MMR Unknown Completed [facility] Meningococcal Vaccine Unknown Completed [facility] Tetanus/Diptheria Unknown Completed [facility] PPD (TB) Unknown Completed [facility] Smallpox Unknown Completed [facility] Varicella (varivax)(chicken pox) Unknown Completed [facility] Zoster(Zostavax)(Sh ingles) Unknown Completed [facility] Pneumococcal 20 Conjugate, PCV20 (Prevnar 20) Unknown Completed [facility] Hepatitis A Adult [facility] Influenza Virus Vaccine Nasal Unknown Completed [facility] Influenza Virus Vaccine Quad IM, Preserv and ABX Free 6 MO-64 YRS (FLUCELVAX) Unknown Completed [facility] SARS-COV-2 COVID 19 UMESH SUCROSE VACCINE 12+, [id number], 0.3 ML (30 MCG), IM PFIZER (LANGSTON TOP) Unknown Completed [facility] Influenza Virus Vaccine Quad IM 3+ YRS Unknown Completed [facility] Influenza Virus Vaccine (3+ yrs) Unknown Completed [facility] Pneumococcal 13 Conjugate, PCV13 (Prevnar 13) Unknown Completed [facility] Pneumococcal Polysaccharide, PPSV23 (PNEUMOVAX) Unknown Completed [facility] TDAP Unknown Completed [facility] Zoster Vaccine Recombinant Unknown Completed [facility] Flu Split Virus, PSA Unknown Completed [facility] Anthrax Vaccine Unknown Completed [facility] SARS-COV-2 COVID-19 PFIZER VACCINE Unknown Completed [facility] SARS-COV-2 COVID-19 UMESH-SUCROSE VACCINE 12 YRS+, BIVALENT 0.3ML, IM, (PFIZER LANGSTON TOP) Unknown Completed [facility] HEP B, Adult Dosage Unknown Completed [facility] Influenza Virus Vaccine Nasal Unknown Completed [facility] Flu Split Virus, PSA Unknown Completed [facility] Influenza Virus Vaccine Unknown Completed [facility] Flu Whole Virus Unknown [facility] Influenza Virus Vaccine Quad Nasal (Flumist) Unknown Completed [facility]alent [facility] Meningococcal Vaccine Unknown Completed [facility] Tetanus/Diptheria Unknown Completed [facility] PPD (TB) Unknown Completed [facility] Smallpox Unknown Completed [facility] Varicella (varivax)(chicken pox) Unknown Completed [facility] Zoster(Zostavax)(Sh ingles) Unknown Completed [facility] Pneumococcal 20 Conjugate, PCV20 (Prevnar 20) Unknown Completed [facility] Hepatitis A Adult Unknown [facility] Influ[facility] Virus Vaccine Quad IM, Preserv and ABX Free 6 MO-64 YRS (FLUCELVAX) Unknown Completed [facility] SARS-COV-2 COVID 19 UMESH SUCROSE VACCINE 12+, [id number], 0.3 ML (30 MCG), IM PFIZER (LANGSTON TOP) Unknown Completed [facility] Influenza Virus Vaccine Unknown Completed [facility] Flu Whole Virus Unknown Completed [facility] Influenza Virus Vaccine Quad Nasal (Flumist) Unknown Completed [facility] Flu Trivalent Unknown Completed [facility] MMR Unknown Completed [facility] Meningococcal Vaccine Unknown Completed [facility] Tetanus/Diptheria Unknown Completed [facility] PPD (TB) Unknown Completed [facility] Smallpox Unknown Completed [facility] Varicella (varivax)(chicken pox) Unknown Completed [facility] Influenza Virus Vaccine Quad IM 3+ YRS Unknown Completed [facility] Influenza Virus Vaccine (3+ yrs) Unknown Completed [facility] Pneumococcal 13 Conjugate, PCV13 (Prevnar 13) Unknown Completed [facility] Pneumococcal Polysaccharide, PPSV23 (PNEUMOVAX) Unknown Completed [facility] Zoster(Zostavax)(Sh ingles) Unknown Completed [facility] TDAP Unknown Completed [facility] Zoster Vaccine Recombinant Unknown Completed [facility] Anthrax Vaccine Unknown Completed [facility] SARS-COV-2 COVID-19 PFIZER VACCINE Unknown Completed [facility] SARS-COV-2 COVID-19 UMESH-SUCROSE VACCINE 12 YRS+, BIVALENT 0.3ML, IM, (PFIZER LANGSTON TOP) Unknown Completed [facility] HEP B, Adult Dosage Unknown Completed [facility] Influenza Virus Vaccine Nasal Unknown Completed [facility] Flu Split Virus, PSA Unknown Completed [facility] Influenza Virus Vaccine Unknown Completed [facility] Flu Whole Virus Unknown [facility] Influenza Virus Vaccine Quad Nasal (Flumist) Unknown Completed [facility] Flu [facility]rivalent [facility] Meningococcal Vaccine Unknown Completed [facility] Tetanus/Diptheria Unknown Completed [facility] PPD (TB) Unknown Completed [facility] Smallpox Unknown Completed [facility] Varicella (varivax)(chicken pox) Unknown Completed [facility] Zoster(Zostavax)(Sh ingles) Unknown Completed [facility] Pneumococcal 20 Conjugate, PCV20 (Prevnar 20) Unknown Completed [facility] Hepatitis A Adult Unknown [facility] Influ[facility] Virus Vaccine Quad IM, Preserv and ABX Free 6 MO-64 YRS (FLUCELVAX) Unknown Completed [facility] SARS-COV-2 COVID 19 UMESH SUCROSE VACCINE 12+, [id number], 0.3 ML (30 MCG), IM PFIZER (LANGSTON TOP) Unknown Completed [facility] Influenza Virus Vaccine Quad IM 3+ YRS Unknown Completed [facility] Influenza Virus Vaccine (3+ yrs) Unknown Completed [facility] Pneumococcal 13 Conjugate, PCV13 (Prevnar 13) Unknown Completed [facility] Pneumococcal Polysaccharide, PPSV23 (PNEUMOVAX) Unknown Completed [facility] TDAP Unknown Completed [facility] Zoster Vaccine Recombinant Unknown Completed [facility] Anthrax Vaccine Unknown Completed [facility] SARS-COV-2 COVID-19 PFIZER VACCINE Unknown Completed [facility] SARS-COV-2 COVID-19 UMESH-SUCROSE VACCINE 12 YRS+, BIVALENT 0.3ML, IM, (PFIZER LANGSTON TOP) Unknown Completed [facility] HEP B, Adult Dosage Unknown Completed [facility] Influenza Virus Vaccine Nasal Unknown Completed [facility] Flu Split Virus, PSA Unknown Completed [facility] Influenza Virus Vaccine Unknown Completed [facility] Flu [facility] Virus [facility]ine Quad Nasal (Flumist) Unknown Com[facility] Meningococcal Vaccine Unknown Completed [facility] Tetanus/Diptheria Unknown Completed Un [facility] PPD (TB) Unknown Completed [facility] Smallpox Unknown Completed [facility] Varicella (varivax)(chicken pox) Unknown Completed [facility] Zoster(Zostavax)(Sh ingles) Unknown Completed [facility] Pneumococcal 20 Conjugate, PCV20 (Prevnar 20) Unknown Completed [facility] Hepatitis A Adult [facility] Quad IM, Preserv and ABX Free 6 MO-64 YRS (FLUCELVAX) Unknown Completed [facility] SARS-COV-2 COVID 19 UMESH SUCROSE VACCINE 12+, [id number], 0.3 ML (30 MCG), IM PFIZER (LANGSTON TOP) Unknown Completed [facility] Influenza Virus Vaccine Quad IM 3+ YRS Unknown Completed [facility] Influenza Virus Vaccine (3+ yrs) Unknown Completed [facility] Pneumococcal 13 Conjugate, PCV13 (Prevnar 13) Unknown Completed [facility] Pneumococcal Polysaccharide, PPSV23 (PNEUMOVAX) Unknown Completed [facility] TDAP Unknown Completed [facility] Zoster Vaccine Recombinant Unknown Completed [facility] Anthrax Vaccine Unknown Completed [facility] SARS-COV-2 COVID-19 PFIZER VACCINE Unknown Completed [facility] SARS-COV-2 COVID-19 UMESH-SUCROSE VACCINE 12 YRS+, BIVALENT 0.3ML, IM, (PFIZER LANGSTON TOP) Unknown Completed [facility] HEP B, Adult Dosage Unknown Completed [facility] Influenza Virus Vaccine Nasal Unknown Completed [facility] Flu Split Virus, PSA Unknown Completed [facility] Influenza Virus Vaccine Unknown Completed [facility] Flu Whole Virus Unknown Completed [facility] Influenza Virus Vaccine Quad Nasal (Flumist) Unknown Completed [facility] Flu Trivalent Unknown Completed [facility] MMR Unknown Completed [facility] Meningococcal Vaccine Unknown Completed [facility] Tetanus/Diptheria Unknown Completed [facility] PPD (TB) Unknown Completed [facility] Smallpox Unknown Completed [facility] Varicella (varivax)(chicken pox) Unknown Completed [facility] Zoster(Zostavax)(Sh ingles) Unknown Completed [facility] Pneumococcal 20 Conjugate, PCV20 (Prevnar 20) Unknown Completed [facility] Hepatitis A Adult Unknown [facility] Quad IM, Preserv and ABX Free 6 MO-64 YRS (FLUCELVAX) Unknown Completed [facility] SARS-COV-2 COVID 19 UMESH SUCROSE VACCINE 12+, [id number], 0.3 ML (30 MCG), IM PFIZER (LANGSTON TOP) Unknown Completed [facility] Influenza Virus Vaccine Quad IM 3+ YRS Unknown Completed [facility] Influenza Virus Vaccine (3+ yrs) Unknown Completed [facility] Pneumococcal 13 Conjugate, PCV13 (Prevnar 13) Unknown Completed [facility] Pneumococcal Polysaccharide, PPSV23 (PNEUMOVAX) Unknown Completed [facility] TDAP Unknown Completed [facility] Zoster Vaccine Recombinant Unknown Completed [facility] Anthrax Vaccine Unknown Completed [facility] SARS-COV-2 COVID-19 PFIZER VACCINE Unknown Completed [facility] SARS-COV-2 COVID-19 UMESH-SUCROSE VACCINE 12 YRS+, BIVALENT 0.3ML, IM, (PFIZER LANGSTON TOP) Unknown Completed [facility] HEP B, Adult Dosage Unknown Completed [facility] Influenza Virus Vaccine Nasal Unknown Completed [facility] Flu Split Virus, PSA Unknown Completed [facility] Influenza Virus Vaccine Unknown Completed [facility] Flu Whole Virus [facility] Vaccine Quad Nasal (Flumist) Unknown Completed [facility]alent [facility] Meningococcal Vaccine Unknown Completed [facility] Tetanus/Diptheria Unknown Completed [facility] PPD (TB) Unknown Completed [facility] Smallpox Unknown Completed [facility] Varicella (varivax)(chicken pox) Unknown Completed [facility] Zoster(Zostavax)(Sh ingles) Unknown Completed [facility] Pneumococcal 20 Conjugate, PCV20 (Prevnar 20) Unknown Completed [facility] Hepatitis A Adult Unknown [facility] Vaccine Quad IM, Preserv and ABX Free 6 MO-64 YRS (FLUCELVAX) Unknown Completed [facility] SARS-COV-2 COVID 19 UMESH SUCROSE VACCINE 12+, [id number], 0.3 ML (30 MCG), IM PFIZER (LANGSTON TOP) Unknown Completed [facility] Influenza Virus Vaccine Quad IM 3+ YRS Unknown Completed [facility] Influenza Virus Vaccine (3+ yrs) Unknown Completed [facility] Pneumococcal 13 Conjugate, PCV13 (Prevnar 13) Unknown Completed [facility] Pneumococcal Polysaccharide, PPSV23 (PNEUMOVAX) Unknown Completed [facility] TDAP Unknown Completed [facility] Zoster Vaccine Recombinant Unknown Completed [facility] Anthrax Vaccine Unknown Completed [facility] SARS-COV-2 COVID-19 PFIZER VACCINE Unknown Completed [facility] SARS-COV-2 COVID-19 UMESH-SUCROSE VACCINE 12 YRS+, BIVALENT 0.3ML, IM, (PFIZER LANGSTON TOP) Unknown Completed [facility] HEP B, Adult Dosage Unknown Completed [facility] Influenza Virus Vaccine Nasal Unknown Completed [facility] Flu Split Virus, PSA Unknown Completed [facility] Influenza Virus Vaccine Unknown Completed [facility] Flu Whole Virus Unknown Completed [facility] Influenza Virus Vaccine Quad Nasal (Flumist) Unknown Completed [facility] Flu Trivalent Unknown Completed [facility] MMR Unknown Completed [facility] Meningococcal Vaccine Unknown Completed [facility] Tetanus/Diptheria Unknown Completed [facility] PPD (TB) Unknown Completed [facility] Smallpox Unknown Completed [facility] Varicella (varivax)(chicken pox) Unknown Completed [facility] Zoster(Zostavax)(Sh ingles) Unknown Completed [facility] Pneumococcal 20 Conjugate, PCV20 (Prevnar 20) Unknown Completed [facility] Hepatitis A Adult Unknown [facility] Vaccine Quad IM, Preserv and ABX Free 6 MO-64 YRS (FLUCELVAX) Unknown Completed [facility] SARS-COV-2 COVID 19 UMESH SUCROSE VACCINE 12+, [id number], 0.3 ML (30 MCG), IM PFIZER (LANGSTON TOP) Unknown Completed [facility] Influenza Virus Vaccine (3+ yrs) Unknown Completed [facility] Pneumococcal 13 Conjugate, PCV13 (Prevnar 13) Unknown Completed [facility] SARS-COV-2 COVID-19 UMESH-SUCROSE VACCINE 12 YRS+, BIVALENT 0.3ML, IM, (PFIZER LANGSTON TOP) Unknown Completed [facility] Influenza Virus Vaccine Quad IM 3+ YRS Unknown Completed [facility] Influenza Virus Vaccine (3+ yrs) Unknown Completed [facility] Pneumococcal 13 Conjugate, PCV13 (Prevnar 13) Unknown Completed [facility] Pneumococcal Polysaccharide, PPSV23 (PNEUMOVAX) Unknown Completed [facility] TDAP Unknown Completed [facility] Zoster Vaccine Recombinant Unknown Completed [facility] Anthrax Vaccine Unknown Completed [facility] SARS-COV-2 COVID-19 PFIZER VACCINE Unknown Completed [facility] SARS-COV-2 COVID-19 UMESH-SUCROSE VACCINE 12 YRS+, BIVALENT 0.3ML, IM, (PFIZER LANGSTON TOP) Unknown Completed [facility] HEP B, Adult Dosage Unknown Completed [facility] Influenza Virus Vaccine Nasal Unknown Completed [facility] Flu Split Virus, PSA Unknown Completed [facility] Influenza Virus Vaccine Unknown Completed [facility] Flu Whole Virus Unknown Completed [facility] Influenza Virus Vaccine Quad Nasal (Flumist) Unknown Completed [facility] Flu Trivalent Unknown Completed [facility] MMR Unknown Completed [facility] Meningococcal Vaccine Unknown Completed [facility] Tetanus/Diptheria Unknown Completed [facility] PPD (TB) Unknown Completed [facility] Smallpox Unknown Completed [facility] Varicella (varivax)(chicken pox) Unknown Completed [facility] Zoster(Zostavax)(Sh ingles) Unknown Completed [facility] Pneumococcal 20 Conjugate, PCV20 (Prevnar 20) Unknown Completed [facility] Influenza Virus Vaccine Unknown Completed [facility] Hepatitis A Adult [facility] Vacc[facility] Quad IM, Preserv and ABX Free 6 MO-64 YRS (FLUCELVAX) Unknown Completed [facility] SARS-COV-2 COVID 19 UMESH SUCROSE VACCINE 12+, [id number], 0.3 ML (30 MCG), IM PFIZER (LANGSTON TOP) Unknown Completed [facility] Flu Whole Virus Unknown Completed [facility] Influenza Virus Vaccine Quad Nasal (Flumist) Unknown Completed [facility] Influenza Virus Vaccine Quad IM 3+ YRS Unknown Completed [facility] Influenza Virus Vaccine (3+ yrs) Unknown Completed [facility] Pneumococcal 13 Conjugate, PCV13 (Prevnar 13) Unknown Completed [facility] Pneumococcal Polysaccharide, PPSV23 (PNEUMOVAX) Unknown Completed [facility] TDAP Unknown Completed [facility] Zoster Vaccine Recombinant Unknown Completed [facility] Anthrax Vaccine Unknown Completed [facility] SARS-COV-2 COVID-19 PFIZER VACCINE Unknown Completed [facility] SARS-COV-2 COVID-19 UMESH-SUCROSE VACCINE 12 YRS+, BIVALENT 0.3ML, IM, (PFIZER LANGSTON TOP) Unknown Completed [facility] HEP B, Adult Dosage Unknown Completed [facility] Influenza Virus Vaccine Nasal Unknown Completed [facility] Flu Split Virus, PSA Unknown Completed [facility] Influenza Virus Vaccine Unknown Completed [facility] Flu Whole Virus Unknown Completed [facility] Influenza Virus Vaccine Quad Nasal (Flumist) Unknown Completed [facility] Flu Trivalent Unknown Completed [facility] MMR Unknown Completed [facility] Meningococcal Vaccine Unknown Completed [facility] Meningococcal Vaccine Unknown Completed [facility] Tetanus/Diptheria Unknown Completed [facility] PPD (TB) Unknown Completed [facility] Tetanus/Diptheria Unknown Completed [facility] Smallpox Unknown Completed [facility] Varicella (varivax)(chicken pox) Unknown Completed [facility] Zoster(Zostavax)(Sh ingles) Unknown Completed [facility] Pneumococcal 20 Conjugate, PCV20 (Prevnar 20) Unknown Completed [facility] Hepatitis A Adult Unknown [facility] Influenza Virus Vaccine Quad IM, Preserv and ABX Free 6 MO-64 YRS (FLUCELVAX) Unknown Completed [facility] SARS-COV-2 COVID 19 UMESH SUCROSE VACCINE 12+, [id number], 0.3 ML (30 MCG), IM PFIZER (LANGSTON TOP) Unknown Completed [facility] Influenza Virus Vaccine Quad IM 3+ YRS Unknown Completed [facility] Influenza Virus Vaccine (3+ yrs) Unknown Completed [facility] Pneumococcal 13 Conjugate, PCV13 (Prevnar 13) Unknown Completed [facility] Pneumococcal Polysaccharide, PPSV23 (PNEUMOVAX) Unknown Completed [facility] TDAP Unknown Completed [facility] Zoster Vaccine Recombinant Unknown Completed [facility] Anthrax Vaccine Unknown Completed [facility] SARS-COV-2 COVID-19 PFIZER VACCINE Unknown Completed [facility] SARS-COV-2 COVID-19 UMESH-SUCROSE VACCINE 12 YRS+, BIVALENT 0.3ML, IM, (PFIZER LANGSTON TOP) Unknown Completed [facility] HEP B, Adult Dosage Unknown Completed [facility] Influenza Virus Vaccine Nasal Unknown Completed [facility] Flu Split Virus, PSA Unknown Completed [facility] Influenza Virus Vaccine Unknown Completed [facility] Flu Whole Virus Unknown Completed [facility] Influenza Virus Vaccine Quad Nasal (Flumist) Unknown Completed [facility] Flu Trivalent Unknown Completed [facility] MMR Unknown Completed [facility] Meningococcal Vaccine Unknown Completed [facility] Tetanus/Diptheria Unknown Completed [facility] PPD (TB) Unknown Completed [facility] Smallpox Unknown Completed [facility] Varicella (varivax)(chicken pox) Unknown Completed [facility] Zoster(Zostavax)(Sh ingles) Unknown Completed [facility] Pneumococcal 20 Conjugate, PCV20 (Prevnar 20) Unknown Completed [facility] Hepatitis A Adult [facility] Vaccine Quad IM, Preserv and ABX Free 6 MO-64 YRS (FLUCELVAX) Unknown Completed [facility] SARS-COV-2 COVID 19 UMESH SUCROSE VACCINE 12+, [id number], 0.3 ML (30 MCG), IM PFIZER (LANGSTON TOP) Unknown Completed [facility] Smallpox Unknown Completed [facility] Influenza Virus Vaccine Quad IM 3+ YRS Unknown Completed [facility] Influenza Virus Vaccine (3+ yrs) Unknown Completed [facility] Pneumococcal 13 Conjugate, PCV13 (Prevnar 13) Unknown Completed [facility] Pneumococcal Polysaccharide, PPSV23 (PNEUMOVAX) Unknown Completed [facility] Varicella (varivax)(chicken pox) Unknown Completed [facility] TDAP Unknown Completed [facility] Zoster Vaccine Recombinant Unknown Completed [facility] Anthrax Vaccine Unknown Completed [facility] Zoster(Zostavax)(Sh ingles) Unknown Completed [facility] SARS-COV-2 COVID-19 PFIZER VACCINE Unknown Completed [facility] SARS-COV-2 COVID-19 UMESH-SUCROSE VACCINE 12 YRS+, BIVALENT 0.3ML, IM, (PFIZER LANGSTON TOP) Unknown Completed [facility] HEP B, Adult Dosage Unknown Completed [facility] Influenza Virus Vaccine Nasal Unknown Completed [facility] Flu Split Virus, PSA Unknown Completed [facility] Influenza Virus Vaccine Unknown Completed [facility] Flu Whole Virus Unknown Completed [facility] Influenza Virus Vaccine Quad Nasal (Flumist) Unknown Completed [facility] Flu Trivalent Unknown Completed [facility] MMR Unknown Completed [facility] Meningococcal Vaccine Unknown Completed [facility] Tetanus/Diptheria Unknown Completed [facility] PPD (TB) Unknown Completed [facility] Smallpox Unknown Completed [facility] Varicella (varivax)(chicken pox) Unknown Completed [facility] Zoster(Zostavax)(Sh ingles) Unknown Completed [facility] Pneumococcal 20 Conjugate, PCV20 (Prevnar 20) Unknown Completed [facility] Hepatitis A Adult [facility] Quad IM, Preserv and ABX Free 6 MO-64 YRS (FLUCELVAX) Unknown Completed [facility] SARS-COV-2 COVID 19 UMESH SUCROSE VACCINE 12+, [id number], 0.3 ML (30 MCG), IM PFIZER (LANGSTON TOP) Unknown Completed [facility] Influenza Virus Vaccine (3+ yrs) Unknown Completed [facility] Pneumococcal 13 Conjugate, PCV13 (Prevnar 13) Unknown Completed [facility] SARS-COV-2 COVID-19 UMESH-SUCROSE VACCINE 12 YRS+, BIVALENT 0.3ML, IM, (PFIZER LANGSTON TOP) Unknown Completed [facility] Influenza Virus Vaccine Unknown Completed [facility] Flu Whole Virus Unknown Completed [facility] Influenza Virus Vaccine Quad Nasal (Flumist) Unknown Completed [facility] Meningococcal Vaccine Unknown Completed [facility] Tetanus/Diptheria [facility] Small[facility]ox [facility] Completed [facility] Varicella (varivax)(chicken pox) Unknown Completed [facility] Zoster(Zostavax)(Sh ingles) Unknown Completed [facility] Pneumococcal 20 Conjugate, PCV20 (Prevnar 20) Unknown Completed [facility] Influenza Virus Vaccine Quad IM, Preserv and ABX Free 6 MO-64 YRS (FLUCELVAX) Unknown Completed [facility] SARS-COV-2 COVID 19 UMESH SUCROSE VACCINE 12+, [id number], 0.3 ML (30 MCG), IM PFIZER (LANGSTON TOP) Unknown Completed [facility] Influenza Virus Vaccine Quad IM 3+ YRS Unknown Completed [facility] Pneumococcal Polysaccharide, PPSV23 (PNEUMOVAX) Unknown Completed [facility] TDAP Unknown Completed [facility] Zoster Vaccine Recombinant Unknown Completed [facility] Anthrax Vaccine Unknown Completed [facility] SARS-COV-2 COVID-19 PFIZER VACCINE Unknown Completed [facility] HEP B, Adult Dosage Unknown Completed [facility] Influenza Virus Vaccine Nasal Unknown Completed [facility] Flu Split Virus, PSA Unknown Completed [facility] Flu Trivalent Unknown Completed [facility] MMR Unknown Completed [facility] Influenza Virus Vaccine Quad IM 3+ YRS Unknown Completed [facility] PPD (TB) Unknown Completed [facility] Hepatitis A Adult Unknown [facility] Influenza Virus Vaccine Quad IM 3+ YRS Unknown Completed [facility] Influenza Virus Vaccine (3+ yrs) Unknown Completed [facility] Pneumococcal 13 Conjugate, PCV13 (Prevnar 13) Unknown Completed [facility] Pneumococcal Polysaccharide, PPSV23 (PNEUMOVAX) Unknown Completed [facility] TDAP Unknown Completed [facility] Zoster Vaccine Recombinant Unknown Completed [facility] Anthrax Vaccine Unknown Completed [facility] SARS-COV-2 COVID-19 PFIZER VACCINE Unknown Completed [facility] SARS-COV-2 COVID-19 UMESH-SUCROSE VACCINE 12 YRS+, BIVALENT 0.3ML, IM, (PFIZER LANGSTON TOP) Unknown Completed [facility] HEP B, Adult Dosage Unknown Completed [facility] Influenza Virus Vaccine Nasal Unknown Completed [facility] Flu Split Virus, PSA Unknown Completed [facility] Influenza Virus Vaccine Unknown Completed [facility] Flu Whole Virus Unknown Completed [facility] Influenza Virus Vaccine Quad Nasal (Flumist) Unknown Completed [facility]rivalent [facility] Meningococcal Vaccine Unknown Completed [facility] Tetanus/Diptheria Unknown Completed [facility] PPD (TB) Unknown Completed [facility] Pneumococcal Polysaccharide, PPSV23 (PNEUMOVAX) Unknown Completed [facility] Smallpox Unknown Completed [facility] Varicella (varivax)(chicken pox) Unknown Completed [facility] Zoster(Zostavax)(Sh ingles) Unknown Completed [facility] Pneumococcal 20 Conjugate, PCV20 (Prevnar 20) Unknown Completed [facility] Hepatitis A Adult Unknown Completed [facility] Influenza Virus Vaccine Quad IM, Preserv and ABX Free 6 MO-64 YRS (FLUCELVAX) Unknown Completed [facility] SARS-COV-2 COVID 19 UMESH SUCROSE VACCINE 12+, [id number], 0.3 ML (30 MCG), IM PFIZER (LANGSTON TOP) Unknown Completed [facility] TDAP Unknown Completed [facility] Influenza Virus Vaccine Quad IM 3+ YRS Unknown Completed [facility] Influenza Virus Vaccine (3+ yrs) Unknown Completed [facility] Pneumococcal 13 Conjugate, PCV13 (Prevnar 13) Unknown Completed [facility] Pneumococcal Polysaccharide, PPSV23 (PNEUMOVAX) Unknown Completed [facility] TDAP Unknown Completed [facility] Zoster Vaccine Recombinant Unknown Completed [facility] Anthrax Vaccine Unknown Completed [facility] SARS-COV-2 COVID-19 PFIZER VACCINE Unknown Completed [facility] SARS-COV-2 COVID-19 UMESH-SUCROSE VACCINE 12 YRS+, BIVALENT 0.3ML, IM, (PFIZER LANGSTON TOP) Unknown Completed [facility] HEP B, Adult Dosage Unknown Completed [facility] Zoster Vaccine Recombinant Unknown Completed [facility] Influenza Virus Vaccine Nasal Unknown Completed [facility] Flu Split Virus, PSA Unknown Completed [facility] Influenza Virus Vaccine Unknown Completed [facility] Flu Whole Virus Unknown Completed [facility] Influenza Virus Vaccine Quad Nasal (Flumist) Unknown Completed [facility] Flu Trivalent Unknown Completed [facility] MMR Unknown Completed [facility] Meningococcal Vaccine Unknown Completed [facility] Tetanus/Diptheria Unknown Completed [facility] PPD (TB) Unknown Completed [facility] Smallpox Unknown Completed [facility] Varicella (varivax)(chicken pox) Unknown Completed [facility] Zoster(Zostavax)(Sh ingles) Unknown Completed [facility] Pneumococcal 20 Conjugate, PCV20 (Prevnar 20) Unknown Completed [facility] Hepatitis A Adult [facility] Vacc[facility] Quad IM, Preserv and ABX Free 6 MO-64 YRS (FLUCELVAX) Unknown Completed [facility] SARS-COV-2 COVID 19 UMESH SUCROSE VACCINE 12+, [id number], 0.3 ML (30 MCG), IM PFIZER (LANGSTON TOP) Unknown Completed [facility] Anthrax [facility]ine [facility] [facility] SARS-COV-2 COVID-19 PFIZER VACCINE Unknown Completed [facility] Influenza Virus Vaccine Quad IM 3+ YRS Unknown Completed [facility] Influenza Virus Vaccine (3+ yrs) Unknown Completed [facility] Pneumococcal 13 Conjugate, PCV13 (Prevnar 13) Unknown Completed [facility] Pneumococcal Polysaccharide, PPSV23 (PNEUMOVAX) Unknown Completed [facility] TDAP Unknown Completed [facility] Zoster Vaccine Recombinant Unknown Completed [facility] Anthrax Vaccine Unknown Completed [facility] SARS-COV-2 COVID-19 PFIZER VACCINE Unknown Completed [facility] SARS-COV-2 COVID-19 UMESH-SUCROSE VACCINE 12 YRS+, BIVALENT 0.3ML, IM, (PFIZER LANGSTON TOP) Unknown Completed [facility] HEP B, Adult Dosage Unknown Completed [facility] Influenza Virus Vaccine Nasal Unknown Completed [facility] Flu Split Virus, PSA Unknown Completed [facility] HEP B, Adult Dosage Unknown Completed [facility] Influenza Virus Vaccine Unknown Completed [facility] Flu [facility] Virus [facility]ine Quad Nasal (Flumist) Unknown Completed [facility] Flu Trivalent Unknown Completed [facility] MMR Unknown Completed [facility] Meningococcal Vaccine Unknown Completed [facility] Tetanus/Diptheria [facility] Com[facility] Smallpox Unknown Completed [facility] Varicella (varivax)(chicken pox) Unknown Completed [facility] Zoster(Zostavax)(Sh ingles) Unknown Completed [facility] Pneumococcal 20 Conjugate, PCV20 (Prevnar 20) Unknown Completed [facility] Hepatitis A Adult [facility] Quad IM, Preserv and ABX Free 6 MO-64 YRS (FLUCELVAX) Unknown Completed [facility] SARS-COV-2 COVID 19 UMESH SUCROSE VACCINE 12+, [id number], 0.3 ML (30 MCG), IM PFIZER (LANGSTON TOP) Unknown Completed [facility] Influenza Virus Vaccine Nasal Unknown Completed [facility] Flu Split Virus, PSA Unknown Completed [facility] Influenza Virus Vaccine Quad IM 3+ YRS Unknown Completed [facility] Influenza Virus Vaccine (3+ yrs) Unknown Completed [facility] Pneumococcal 13 Conjugate, PCV13 (Prevnar 13) Unknown Completed [facility] Pneumococcal Polysaccharide, PPSV23 (PNEUMOVAX) Unknown Completed [facility] TDAP Unknown Completed [facility] Zoster Vaccine Recombinant Unknown Completed [facility] Anthrax Vaccine Unknown Completed [facility] SARS-COV-2 COVID-19 PFIZER VACCINE Unknown Completed [facility] SARS-COV-2 COVID-19 UMESH-SUCROSE VACCINE 12 YRS+, BIVALENT 0.3ML, IM, (PFIZER LANGSTON TOP) Unknown Completed [facility] HEP B, Adult Dosage Unknown Completed [facility] Influenza Virus Vaccine Nasal Unknown Completed [facility] Flu Split Virus, PSA Unknown Completed [facility] Influenza Virus Vaccine Unknown Completed [facility] Flu Whole Virus [facility] Vaccine Quad Nasal (Flumist) Unknown Completed [facility] Flu Trivalent Unknown Completed [facility] MMR Unknown Completed [facility] Meningococcal Vaccine Unknown Completed [facility] Tetanus/Diptheria Unknown Completed Un [facility] PPD (TB) Unknown Completed [facility] Smallpox Unknown Completed [facility] Varicella (varivax)(chicken pox) Unknown Completed [facility] Zoster(Zostavax)(Sh ingles) Unknown Completed [facility], PCV20 (Prevnar 20) Unknown Completed [facility] Hepatitis A Adult [facility] Vaccine Quad IM, Preserv and ABX Free 6 MO-64 YRS (FLUCELVAX) Unknown Completed [facility] SARS-COV-2 COVID 19 UMESH SUCROSE VACCINE 12+, [id number], 0.3 ML (30 MCG), IM PFIZER (LANGSTON TOP) Unknown Completed [facility] Influenza Virus Vaccine Quad IM 3+ YRS Unknown Completed [facility] Influenza Virus Vaccine (3+ yrs) Unknown Completed [facility] Pneumococcal 13 Conjugate, PCV13 (Prevnar 13) Unknown Completed [facility] Pneumococcal Polysaccharide, PPSV23 (PNEUMOVAX) Unknown Completed [facility] TDAP Unknown Completed [facility] Zoster Vaccine Recombinant Unknown Completed [facility] Anthrax Vaccine Unknown Completed [facility] MMR Unknown Completed [facility] SARS-COV-2 COVID-19 PFIZER VACCINE Unknown Completed [facility] SARS-COV-2 COVID-19 UMESH-SUCROSE VACCINE 12 YRS+, BIVALENT 0.3ML, IM, (PFIZER LANGSTON TOP) Unknown Completed [facility] HEP B, Adult Dosage Unknown Completed [facility] Influenza Virus Vaccine Nasal Unknown Completed [facility] Flu Split Virus, PSA Unknown Completed [facility] Influenza Virus Vaccine Unknown Completed [facility] Flu Whole Virus Unknown Completed [facility] Influenza Virus Vaccine Quad Nasal (Flumist) Unknown Completed [facility]alent [facility] Meningococcal Vaccine Unknown Completed [facility] Tetanus/Diptheria Unknown [facility] Completed [facility] PPD (TB) Unknown Completed [facility] Smallpox Unknown Completed [facility] Varicella (varivax)(chicken pox) Unknown Completed [facility] Zoster(Zostavax)(Sh ingles) Unknown Completed [facility] Pneumococcal 20 Conjugate, PCV20 (Prevnar 20) Unknown Completed [facility] Hepatitis A Adult [facility] Vaccine Quad IM, Preserv and ABX Free 6 MO-64 YRS (FLUCELVAX) Unknown Completed [facility] SARS-COV-2 COVID 19 UMESH SUCROSE VACCINE 12+, [id number], 0.3 ML (30 MCG), IM PFIZER (LANGSTON TOP) Unknown Completed [facility] Influenza Virus Vaccine Quad IM 3+ YRS Unknown Completed [facility] Influenza Virus Vaccine (3+ yrs) Unknown Completed [facility] Pneumococcal 13 Conjugate, PCV13 (Prevnar 13) Unknown Completed [facility] Pneumococcal Polysaccharide, PPSV23 (PNEUMOVAX) Unknown Completed [facility] TDAP Unknown Completed [facility] Zoster Vaccine Recombinant Unknown Completed [facility] Anthrax Vaccine Unknown Completed [facility] SARS-COV-2 COVID-19 PFIZER VACCINE Unknown Completed [facility] SARS-COV-2 COVID-19 UEMSH-SUCROSE VACCINE 12 YRS+, BIVALENT 0.3ML, IM, (PFIZER LANGSTON TOP) Unknown Completed [facility] HEP B, Adult Dosage Unknown Completed [facility] Influenza Virus Vaccine Nasal Unknown Completed [facility] Flu Split Virus, PSA Unknown Completed [facility] Influenza Virus Vaccine Unknown Completed [facility] Flu Whole Virus Unknown Completed [facility] Influenza Virus Vaccine Quad Nasal (Flumist) Unknown Completed [facility] Flu Trivalent Unknown Completed [facility] MMR Unknown Completed [facility] Meningococcal Vaccine Unknown Completed [facility] Tetanus/Diptheria Unknown Completed [facility] PPD (TB) Unknown Completed [facility] Smallpox Unknown Completed [facility] Varicella (varivax)(chicken pox) Unknown Completed [facility] Zoster(Zostavax)(Sh ingles) Unknown Completed [facility] Pneumococcal 20 Conjugate, PCV20 (Prevnar 20) Unknown Completed [facility] Hepatitis A Adult Unknown [facility] Vaccine Quad IM, Preserv and ABX Free 6 MO-64 YRS (FLUCELVAX) Unknown Completed [facility] SARS-COV-2 COVID 19 UMESH SUCROSE VACCINE 12+, [id number], 0.3 ML (30 MCG), IM PFIZER (LANGSTON TOP) Unknown Completed [facility] Influenza Virus Vaccine Quad IM 3+ YRS Unknown Completed [facility] Influenza Virus Vaccine Quad IM 3+ YRS Unknown Completed [facility] Influenza Virus Vaccine (3+ yrs) Unknown Completed [facility] Pneumococcal 13 Conjugate, PCV13 (Prevnar 13) Unknown Completed [facility] Pneumococcal Polysaccharide, PPSV23 (PNEUMOVAX) Unknown Completed [facility] TDAP Unknown Completed [facility] Zoster Vaccine Recombinant Unknown Completed [facility] Anthrax Vaccine Unknown Completed [facility] SARS-COV-2 COVID-19 PFIZER VACCINE Unknown Completed [facility] SARS-COV-2 COVID-19 UMESH-SUCROSE VACCINE 12 YRS+, BIVALENT 0.3ML, IM, (PFIZER LANGSTON TOP) Unknown Completed [facility] HEP B, Adult Dosage Unknown Completed [facility] Influenza Virus Vaccine Nasal Unknown Completed [facility] Flu Split Virus, PSA Unknown Completed [facility] Influenza Virus Vaccine (3+ yrs) Unknown Completed [facility] Influenza Virus Vaccine Unknown Completed [facility] Flu Whole Virus Unknown Completed [facility] Influenza Virus Vaccine Quad Nasal (Flumist) Unknown Completed [facility] Flu Trivalent Unknown Completed [facility] MMR Unknown Completed [facility] Meningococcal Vaccine Unknown Completed [facility] Pneumococcal 13 Conjugate, PCV13 (Prevnar 13) Unknown Completed [facility] Tetanus/Diptheria Unknown Completed Un [facility] PPD (TB) Unknown Completed [facility] Pneumococcal Polysaccharide, PPSV23 (PNEUMOVAX) Unknown Completed [facility] Smallpox Unknown Completed [facility] Varicella (varivax)(chicken pox) Unknown Completed [facility] Zoster(Zostavax)(Sh ingles) Unknown Completed [facility] Pneumococcal 20 Conjugate, PCV20 (Prevnar 20) Unknown Completed [facility] Hepatitis A Adult Unknown [facility] Vacc[facility] Quad IM, Preserv and ABX Free 6 MO-64 YRS (FLUCELVAX) Unknown Completed [facility] SARS-COV-2 COVID 19 UMESH SUCROSE VACCINE 12+, [id number], 0.3 ML (30 MCG), IM PFIZER (LANGSTON TOP) Unknown Completed [facility] TDAP Unknown Completed [facility] Zoster Vaccine Recombinant Unknown Completed [facility] Influenza Virus Vaccine Quad IM 3+ YRS Unknown Completed [facility] Influenza Virus Vaccine (3+ yrs) Unknown Completed [facility] Pneumococcal 13 Conjugate, PCV13 (Prevnar 13) Unknown Completed [facility] Pneumococcal Polysaccharide, PPSV23 (PNEUMOVAX) Unknown Completed [facility] TDAP Unknown Completed [facility] Anthrax Vaccine Unknown Completed [facility] Zoster Vaccine Recombinant Unknown Completed [facility] Anthrax Vaccine Unknown Completed [facility] SARS-COV-2 COVID-19 PFIZER VACCINE Unknown Completed [facility] SARS-COV-2 COVID-19 UMESH-SUCROSE VACCINE 12 YRS+, BIVALENT 0.3ML, IM, (PFIZER LANGSTON TOP) Unknown Completed [facility] HEP B, Adult Dosage Unknown Completed [facility] Influenza Virus Vaccine Nasal Unknown Completed [facility] Flu Split Virus, PSA Unknown Completed [facility] Influenza Virus Vaccine Unknown Completed [facility] Flu Whole Virus Unknown Completed [facility] Influenza Virus Vaccine Quad Nasal (Flumist) Unknown Completed [facility] Flu Trivalent Unknown Completed [facility] MMR Unknown Completed [facility] Meningococcal Vaccine Unknown Completed [facility] Tetanus/Diptheria Unknown Completed [facility] PPD (TB) Unknown Completed [facility] Smallpox Unknown Completed [facility] Varicella (varivax)(chicken pox) Unknown Completed [facility] Zoster(Zostavax)(Sh ingles) Unknown Completed [facility] Pneumococcal 20 Conjugate, PCV20 (Prevnar 20) Unknown Completed [facility] Hepatitis A Adult Unknown [facility] Vaccine Quad IM, Preserv and ABX Free 6 MO-64 YRS (FLUCELVAX) Unknown Completed [facility] SARS-COV-2 COVID 19 UMESH SUCROSE VACCINE 12+, [id number], 0.3 ML (30 MCG), IM PFIZER (LANGSTON TOP) Unknown Completed [facility] SARS-COV-2 COVID-19 PFIZER VACCINE Unknown Completed [facility] SARS-COV-2 COVID-19 UMESH-SUCROSE VACCINE 12 YRS+, BIVALENT 0.3ML, IM, (PFIZER LANGSTON TOP) Unknown Completed [facility] HEP B, Adult Dosage Unknown Completed [facility] Influenza Virus Vaccine Nasal Unknown Completed [facility] Flu Split Virus, PSA Unknown Completed [facility] Influenza Virus Vaccine Quad IM 3+ YRS Unknown Completed [facility] Influenza Virus Vaccine (3+ yrs) Unknown Completed [facility] Pneumococcal 13 Conjugate, PCV13 (Prevnar 13) Unknown Completed [facility] Pneumococcal Polysaccharide, PPSV23 (PNEUMOVAX) Unknown Completed [facility] TDAP Unknown Completed [facility] Zoster Vaccine Recombinant Unknown Completed [facility] Anthrax Vaccine Unknown [facility]-19 PFIZER VACCINE Unknown Completed [facility] SARS-COV-2 COVID-19 UMESH-SUCROSE VACCINE 12 YRS+, BIVALENT 0.3ML, IM, (PFIZER LANGSTON TOP) Unknown Completed [facility] HEP B, Adult Dosage Unknown Completed [facility] Influenza Virus Vaccine Nasal Unknown Completed [facility] Flu Split Virus, PSA Unknown Completed [facility] Influenza Virus Vaccine Unknown Completed [facility] Flu Whole Virus Unknown Completed [facility] Influenza Virus Vaccine Quad Nasal (Flumist) Unknown Completed [facility] Flu Trivalent Unknown Completed [facility] Influenza Virus Vaccine Unknown Completed [facility] MMR Unknown Completed [facility] Meningococcal Vaccine Unknown Completed [facility] Tetanus/Diptheria Unknown Completed [facility] PPD (TB) Unknown Completed [facility] Flu Whole Virus [facility] Smallpox [facility] Completed [facility] Varicella (varivax)(chicken pox) Unknown Completed [facility] Zoster(Zostavax)(Sh ingles) Unknown Completed [facility] Pneumococcal 20 Conjugate, PCV20 (Prevnar 20) Unknown Completed [facility] Hepatitis A Adult Unknown Completed [facility] Influenza Virus Vaccine Quad Nasal (Flumist) Unknown Completed [facility] Influenza Virus Vaccine Quad IM, Preserv and ABX Free 6 MO-64 YRS (FLUCELVAX) Unknown Completed [facility] SARS-COV-2 COVID 19 UMESH SUCROSE VACCINE 12+, [id number], 0.3 ML (30 MCG), IM PFIZER (LANGSTON TOP) Unknown Completed [facility] Flu Trivalent Unknown Completed [facility] MMR Unknown Completed [facility] Meningococcal Vaccine Unknown Completed [facility] Tetanus/Diptheria Unknown Completed [facility] PPD (TB) Unknown Completed [facility] Influenza Virus Vaccine Quad IM 3+ YRS Unknown Completed [facility] Influenza Virus Vaccine (3+ yrs) Unknown Completed [facility] Pneumococcal 13 Conjugate, PCV13 (Prevnar 13) Unknown Completed [facility] Pneumococcal Polysaccharide, PPSV23 (PNEUMOVAX) Unknown Completed [facility] TDAP Unknown Completed [facility] Zoster Vaccine Recombinant Unknown Completed [facility] Anthrax Vaccine Unknown Completed [facility] Smallpox Unknown Completed [facility] SARS-COV-2 COVID-19 PFIZER VACCINE Unknown Completed [facility] SARS-COV-2 COVID-19 UMESH-SUCROSE VACCINE 12 YRS+, BIVALENT 0.3ML, IM, (PFIZER LANGSTON TOP) Unknown Completed [facility] HEP B, Adult Dosage Unknown Completed [facility] Varicella (varivax)(chicken pox) Unknown Completed [facility] Influenza Virus Vaccine Nasal Unknown Completed [facility] Flu Split Virus, PSA Unknown Completed [facility] Zoster(Zostavax)(Sh ingles) Unknown Completed [facility] Influenza Virus Vaccine Unknown Completed [facility] Flu Whole Virus Unknown Completed [facility] Influenza Virus Vaccine Quad Nasal (Flumist) Unknown Completed [facility]rivalent [facility] Meningococcal Vaccine Unknown Completed [facility] Tetanus/Diptheria Unknown Completed [facility] PPD (TB) Unknown Completed [facility] Smallpox Unknown Completed [facility] Varicella (varivax)(chicken pox) Unknown Completed [facility] Zoster(Zostavax)(Sh ingles) Unknown Completed [facility] Pneumococcal 20 Conjugate, PCV20 (Prevnar 20) Unknown Completed [facility] Hepatitis A Adult [facility] Influ[facility] Virus Vaccine Quad IM, Preserv and ABX Free 6 MO-64 YRS (FLUCELVAX) Unknown Completed [facility] SARS-COV-2 COVID 19 UMESH SUCROSE VACCINE 12+, [id number], 0.3 ML (30 MCG), IM PFIZER (LANGSTON TOP) Unknown Completed [facility] Influenza Virus Vaccine Quad IM 3+ YRS Unknown Completed [facility] Influenza Virus Vaccine (3+ yrs) Unknown Completed [facility] Pneumococcal 13 Conjugate, PCV13 (Prevnar 13) Unknown Completed [facility] Pneumococcal Polysaccharide, PPSV23 (PNEUMOVAX) Unknown Completed [facility] TDAP Unknown Completed [facility] Zoster Vaccine Recombinant Unknown Completed [facility] Anthrax Vaccine Unknown Completed [facility] SARS-COV-2 COVID-19 PFIZER VACCINE Unknown Completed [facility] SARS-COV-2 COVID-19 UMESH-SUCROSE VACCINE 12 YRS+, BIVALENT 0.3ML, IM, (PFIZER LANGSTON TOP) Unknown Completed [facility] HEP B, Adult Dosage Unknown Completed [facility] Influenza Virus Vaccine Nasal Unknown Completed [facility] Flu Split Virus, PSA Unknown Completed [facility] Influenza Virus Vaccine Unknown Completed [facility] Flu Whole Virus Unknown Completed [facility] Influenza Virus Vaccine Quad Nasal (Flumist) Unknown Completed [facility] Flu Trivalent Unknown Completed [facility] MMR Unknown Completed [facility] Meningococcal Vaccine Unknown Completed [facility] Tetanus/Diptheria Unknown Completed [facility] PPD (TB) Unknown Completed [facility] Smallpox Unknown Completed [facility] Varicella (varivax)(chicken pox) Unknown Completed [facility] Zoster(Zostavax)(Sh ingles) Unknown Completed [facility] Pneumococcal 20 Conjugate, PCV20 (Prevnar 20) Unknown Completed [facility] Hepatitis A Adult [facility] Vaccine Quad IM, Preserv and ABX Free 6 MO-64 YRS (FLUCELVAX) Unknown Completed [facility] SARS-COV-2 COVID 19 UMESH SUCROSE VACCINE 12+, [id number], 0.3 ML (30 MCG), IM PFIZER (LANGSTON TOP) Unknown Completed [facility] Influenza Virus Vaccine Quad IM 3+ YRS Unknown Completed [facility] Influenza Virus Vaccine (3+ yrs) Unknown Completed [facility] Pneumococcal 13 Conjugate, PCV13 (Prevnar 13) Unknown Completed [facility] Pneumococcal Polysaccharide, PPSV23 (PNEUMOVAX) Unknown Completed [facility] TDAP Unknown Completed [facility] Zoster Vaccine Recombinant Unknown Completed [facility] Anthrax Vaccine Unknown Completed [facility] SARS-COV-2 COVID-19 PFIZER VACCINE Unknown Completed [facility] Influenza Virus Vaccine Quad IM 3+ YRS Unknown Completed [facility] SARS-COV-2 COVID-19 UMESH-SUCROSE VACCINE 12 YRS+, BIVALENT 0.3ML, IM, (PFIZER LANGSTON TOP) Unknown Completed [facility] HEP B, Adult Dosage Unknown Completed [facility] Influenza Virus Vaccine Nasal Unknown Completed [facility] Flu Split Virus, PSA Unknown Completed [facility] Influenza Virus Vaccine Unknown Completed [facility] Flu Whole Virus Unknown Completed [facility] Influenza Virus Vaccine Quad Nasal (Flumist) Unknown Completed [facility] Flu Trivalent Unknown Completed [facility] MMR Unknown Completed [facility] Meningococcal Vaccine Unknown Completed [facility] Tetanus/Diptheria Unknown Completed [facility] PPD (TB) Unknown Completed [facility] Smallpox Unknown Completed [facility] Varicella (varivax)(chicken pox) Unknown Completed [facility] Zoster(Zostavax)(Sh ingles) Unknown Completed [facility] Pneumococcal 20 Conjugate, PCV20 (Prevnar 20) Unknown Completed [facility] Hepatitis A Adult [facility] Influ[facility] Virus Vaccine Quad IM, Preserv and ABX Free 6 MO-64 YRS (FLUCELVAX) Unknown Completed [facility] SARS-COV-2 COVID 19 UMESH SUCROSE VACCINE 12+, [id number], 0.3 ML (30 MCG), IM PFIZER (LANGSTON TOP) Unknown Completed [facility] Influenza Virus Vaccine (3+ yrs) Unknown Completed [facility] Pneumococcal 13 Conjugate, PCV13 (Prevnar 13) Unknown Completed [facility] Pneumococcal Polysaccharide, PPSV23 (PNEUMOVAX) Unknown Completed [facility] TDAP Unknown Completed [facility] Zoster Vaccine Recombinant Unknown Completed [facility] Anthrax Vaccine Unknown [facility] Influenza Virus Vaccine Quad IM 3+ YRS Unknown Completed [facility] Influenza Virus Vaccine (3+ yrs) Unknown Completed [facility] Pneumococcal 13 Conjugate, PCV13 (Prevnar 13) Unknown Completed [facility] Pneumococcal Polysaccharide, PPSV23 (PNEUMOVAX) Unknown Completed [facility] TDAP Unknown Completed [facility] Zoster Vaccine Recombinant Unknown Completed [facility] Anthrax Vaccine Unknown Completed [facility] SARS-COV-2 COVID-19 PFIZER VACCINE Unknown Completed [facility] SARS-COV-2 COVID-19 UMESH-SUCROSE VACCINE 12 YRS+, BIVALENT 0.3ML, IM, (PFIZER LANGSTON TOP) Unknown Completed [facility] HEP B, Adult Dosage Unknown Completed [facility] Influenza Virus Vaccine Nasal Unknown Completed [facility] Flu Split Virus, PSA Unknown Completed [facility] Influenza Virus Vaccine Unknown Completed [facility] Flu Whole Virus Unknown Completed [facility] Influenza Virus Vaccine Quad Nasal (Flumist) Unknown Completed [facility] Flu Trivalent Unknown Completed [facility] MMR Unknown Completed [facility] Meningococcal Vaccine Unknown Completed [facility] Tetanus/Diptheria Unknown Completed Un [facility] PPD (TB) Unknown Completed [facility] SARS-COV-2 COVID-19 PFIZER VACCINE Unknown Completed [facility] Smallpox Unknown Completed [facility] Varicella (varivax)(chicken pox) Unknown Completed [facility] Zoster(Zostavax)(Sh ingles) Unknown Completed [facility] Pneumococcal 20 Conjugate, PCV20 (Prevnar 20) Unknown Completed [facility] Hepatitis A Adult [facility] Quad IM, Preserv and ABX Free 6 MO-64 YRS (FLUCELVAX) Unknown Completed [facility] SARS-COV-2 COVID 19 UMESH SUCROSE VACCINE 12+, [id number], 0.3 ML (30 MCG), IM PFIZER (LANGSTON TOP) Unknown Completed [facility] Influenza Virus Vaccine Quad IM 3+ YRS Unknown Completed [facility] Influenza Virus Vaccine (3+ yrs) Unknown Completed [facility] Pneumococcal 13 Conjugate, PCV13 (Prevnar 13) Unknown Completed [facility] Pneumococcal Polysaccharide, PPSV23 (PNEUMOVAX) Unknown Completed [facility] TDAP Unknown Completed [facility] SARS-COV-2 COVID-19 UMESH-SUCROSE VACCINE 12 YRS+, BIVALENT 0.3ML, IM, (PFIZER LANGSTON TOP) Unknown Completed [facility] Zoster Vaccine Recombinant Unknown Completed [facility] Anthrax Vaccine Unknown Completed [facility] HEP B, Adult Dosage Unknown Completed [facility] SARS-COV-2 COVID-19 PFIZER VACCINE Unknown Completed [facility] SARS-COV-2 COVID-19 UMSEH-SUCROSE VACCINE 12 YRS+, BIVALENT 0.3ML, IM, (PFIZER LANGSTON TOP) Unknown Completed [facility] HEP B, Adult Dosage Unknown Completed [facility] Influenza Virus Vaccine Nasal Unknown Completed [facility] Flu Split Virus, PSA Unknown Completed [facility] Influenza Virus Vaccine Unknown Completed [facility] Flu Whole Virus Unknown Completed [facility] Influenza Virus Vaccine Quad Nasal (Flumist) Unknown Completed [facility] Flu Trivalent Unknown Completed [facility] MMR Unknown Completed [facility] Meningococcal Vaccine Unknown Completed [facility] Tetanus/Diptheria Unknown Completed [facility] PPD (TB) Unknown Completed [facility] Smallpox Unknown Completed [facility] Varicella (varivax)(chicken pox) Unknown Completed [facility] Zoster(Zostavax)(Kourtney albert) Unknown Completed [facility] Pneumococcal 20 Conjugate, PCV20 (Prevnar 20) Unknown Completed [facility]atitis [facility] Completed [facility] Influenza Virus Vaccine Quad IM, Preserv and ABX Free 6 MO-64 YRS (FLUCELVAX) Unknown Completed [facility] SARS-COV-2 COVID 19 UMESH SUCROSE VACCINE 12+, [id number], 0.3 ML (30 MCG), IM PFIZER (LANGSTON TOP) Unknown Completed [facility] Influenza Virus Vaccine Quad IM 3+ YRS Unknown Completed [facility] Influenza Virus Vaccine (3+ yrs) Unknown Completed [facility] Pneumococcal 13 Conjugate, PCV13 (Prevnar 13) Unknown Completed [facility] Pneumococcal Polysaccharide, PPSV23 (PNEUMOVAX) Unknown Completed [facility] TDAP Unknown Completed [facility] Zoster Vaccine Recombinant Unknown Completed [facility] Anthrax Vaccine Unknown Completed [facility] SARS-COV-2 COVID-19 PFIZER VACCINE Unknown Completed [facility] SARS-COV-2 COVID-19 UMESH-SUCROSE VACCINE 12 YRS+, BIVALENT 0.3ML, IM, (PFIZER LANGSTON TOP) Unknown Completed [facility] HEP B, Adult Dosage Unknown Completed [facility] Flu Split Virus, PSA Unknown Completed [facility] Influenza Virus Vaccine Nasal Unknown Completed [facility] Flu Split Virus, PSA Unknown Completed [facility] Influenza Virus Vaccine Unknown Completed [facility] Flu Whole Virus Unknown Completed [facility] Influenza Virus Vaccine Quad Nasal (Flumist) Unknown Completed [facility] Flu Trivalent Unknown Completed [facility] MMR Unknown Completed [facility] Meningococcal Vaccine Unknown Completed [facility] Tetanus/Diptheria Unknown Completed Un [facility] PPD (TB) Unknown Completed [facility] Smallpox Unknown Completed [facility] Varicella (varivax)(chicken pox) Unknown Completed [facility] Zoster(Zostavax)(Sh ingles) Unknown Completed [facility] Pneumococcal 20 Conjugate, PCV20 (Prevnar 20) Unknown Completed [facility] Hepatitis A Adult [facility] Quad IM, Preserv and ABX Free 6 MO-64 YRS (FLUCELVAX) Unknown Completed [facility] SARS-COV-2 COVID 19 UMESH SUCROSE VACCINE 12+, [id number], 0.3 ML (30 MCG), IM PFIZER (LANGSTON TOP) Unknown Completed [facility] Influenza Virus Vaccine Quad IM 3+ YRS Unknown Completed [facility] Influenza Virus Vaccine (3+ yrs) Unknown Completed [facility] Pneumococcal 13 Conjugate, PCV13 (Prevnar 13) Unknown Completed [facility] Pneumococcal Polysaccharide, PPSV23 (PNEUMOVAX) Unknown Completed [facility] TDAP Unknown Completed [facility] Influenza Virus Vaccine Unknown Completed [facility] Zoster Vaccine Recombinant Unknown Completed [facility] Anthrax Vaccine Unknown Completed [facility] Flu Whole Virus Unknown Completed [facility] SARS-COV-2 COVID-19 PFIZER VACCINE Unknown Completed [facility] SARS-COV-2 COVID-19 UMESH-SUCROSE VACCINE 12 YRS+, BIVALENT 0.3ML, IM, (PFIZER LANGSTON TOP) Unknown Completed [facility] HEP B, Adult Dosage Unknown Completed [facility] Influenza Virus Vaccine Quad Nasal (Flumist) Unknown Completed [facility] Influenza Virus Vaccine Nasal Unknown Completed [facility] Flu Split Virus, PSA Unknown Completed [facility] Flu Trivalent Unknown Completed [facility] Influenza Virus Vaccine Unknown Completed [facility] Flu Whole Virus Unknown Completed [facility] Influenza Virus Vaccine Quad Nasal (Flumist) Unknown Completed [facility] Flu Trivalent Unknown Completed [facility] MMR Unknown Completed [facility] Meningococcal Vaccine Unknown Completed [facility] Tetanus/Diptheria Unknown Completed [facility] PPD (TB) Unknown Completed [facility] Smallpox Unknown Completed [facility] Varicella (varivax)(chicken pox) Unknown Completed [facility] Zoster(Zostavax)(Sh ingles) Unknown Completed [facility] Pneumococcal 20 Conjugate, PCV20 (Prevnar 20) Unknown Completed [facility] Hepatitis A Adult [facility] Vaccine Quad IM, Preserv and ABX Free 6 MO-64 YRS (FLUCELVAX) Unknown Completed [facility] MMR Unknown Completed [facility] SARS-COV-2 COVID 19 UMESH SUCROSE VACCINE 12+, [id number], 0.3 ML (30 MCG), IM PFIZER (LANGSTON TOP) Unknown Completed [facility] Influenza Virus Vaccine Quad IM 3+ YRS Unknown Completed [facility] Influenza Virus Vaccine (3+ yrs) Unknown Completed [facility] Pneumococcal 13 Conjugate, PCV13 (Prevnar 13) Unknown Completed [facility] Pneumococcal Polysaccharide, PPSV23 (PNEUMOVAX) Unknown Completed [facility] TDAP Unknown Completed [facility] Zoster Vaccine Recombinant Unknown Completed [facility] Meningococcal Vaccine Unknown Completed [facility] Anthrax Vaccine Unknown Completed [facility] Tetanus/Diptheria Unknown [facility] COVID-19 PFIZER VACCINE Unknown Completed [facility] SARS-COV-2 COVID-19 UMESH-SUCROSE VACCINE 12 YRS+, BIVALENT 0.3ML, IM, (PFIZER LANGSTON TOP) Unknown Completed [facility] HEP B, Adult Dosage Unknown Completed [facility] Influenza Virus Vaccine Nasal Unknown Completed [facility] PPD (TB) Unknown Completed [facility] Flu Split Virus, PSA Unknown Completed [facility] Influenza Virus Vaccine Unknown Completed [facility] Flu Whole Virus Unknown Completed [facility] Influenza Virus Vaccine Quad Nasal (Flumist) Unknown Completed [facility] Flu Trivalent Unknown Completed [facility] MMR Unknown Completed [facility] Meningococcal Vaccine Unknown Completed [facility] Tetanus/Diptheria Unknown Completed [facility] PPD (TB) Unknown Completed [facility] Smallpox Unknown Completed [facility] Varicella (varivax)(chicken pox) Unknown Completed [facility] Zoster(Zostavax)(Sh ingles) Unknown Completed [facility] Pneumococcal 20 Conjugate, PCV20 (Prevnar 20) Unknown Completed [facility] Hepatitis A Adult Unknown [facility] Virus Vaccine Quad IM, Preserv and ABX Free 6 MO-64 YRS (FLUCELVAX) Unknown Completed [facility] SARS-COV-2 COVID 19 UMESH SUCROSE VACCINE 12+, [id number], 0.3 ML (30 MCG), IM PFIZER (LANGSTON TOP) Unknown Completed [facility] Influenza Virus Vaccine Quad IM 3+ YRS Unknown Completed [facility] Influenza Virus Vaccine (3+ yrs) Unknown Completed [facility] Pneumococcal 13 Conjugate, PCV13 (Prevnar 13) Unknown Completed [facility] Pneumococcal Polysaccharide, PPSV23 (PNEUMOVAX) Unknown Completed [facility] TDAP Unknown Completed [facility] Zoster Vaccine Recombinant Unknown Completed [facility] Anthrax Vaccine Unknown Completed [facility] SARS-COV-2 COVID-19 PFIZER VACCINE Unknown Completed [facility] SARS-COV-2 COVID-19 UMESH-SUCROSE VACCINE 12 YRS+, BIVALENT 0.3ML, IM, (PFIZER LANGSTON TOP) Unknown Completed [facility] HEP B, Adult Dosage Unknown Completed [facility] Influenza Virus Vaccine Nasal Unknown Completed [facility] Flu Split Virus, PSA Unknown Completed [facility] Influenza Virus Vaccine Unknown Completed [facility] Flu Whole Virus Unknown Completed [facility] Influenza Virus Vaccine Quad Nasal (Flumist) Unknown Completed [facility] Flu Trivalent Unknown Completed [facility] MMR Unknown Completed [facility] Meningococcal Vaccine Unknown Completed [facility] Tetanus/Diptheria Unknown Completed [facility] PPD (TB) Unknown Completed [facility] Smallpox Unknown Completed [facility] Smallpox Unknown Completed [facility] Varicella (varivax)(chicken pox) Unknown Completed [facility] Zoster(Zostavax)(Sh ingles) Unknown Completed [facility] Pneumococcal 20 Conjugate, PCV20 (Prevnar 20) Unknown Completed [facility] Hepatitis A Adult [facility] Varicella ([facility])(chicken pox) Unknown Completed [facility] Influenza Virus Vaccine Quad IM, Preserv and ABX Free 6 MO-64 YRS (FLUCELVAX) Unknown Completed [facility] SARS-COV-2 COVID 19 UMESH SUCROSE VACCINE 12+, [id number], 0.3 ML (30 MCG), IM PFIZER (LANGSTON TOP) Unknown Completed [facility] Influenza Virus Vaccine Quad IM 3+ YRS Unknown Completed [facility] Zoster(Zostavax)(Sh ingles) Unknown Completed [facility] Influenza Virus Vaccine (3+ yrs) Unknown Completed [facility] Pneumococcal 13 Conjugate, PCV13 (Prevnar 13) Unknown Completed [facility] Pneumococcal Polysaccharide, PPSV23 (PNEUMOVAX) Unknown Completed [facility] TDAP Unknown Completed [facility] Zoster Vaccine Recombinant Unknown Completed [facility] Anthrax Vaccine Unknown Completed [facility] SARS-COV-2 COVID-19 PFIZER VACCINE Unknown Completed [facility] SARS-COV-2 COVID-19 UMESH-SUCROSE VACCINE 12 YRS+, BIVALENT 0.3ML, IM, (PFIZER LANGSTON TOP) Unknown Completed [facility] HEP B, Adult Dosage Unknown Completed [facility] Influenza Virus Vaccine Nasal Unknown Completed [facility] Flu Split Virus, PSA Unknown Completed [facility] Influenza Virus Vaccine Unknown Completed [facility] Flu Whole Virus Unknown Completed [facility] Influenza Virus Vaccine Quad Nasal (Flumist) Unknown Completed [facility] Flu Trivalent Unknown Completed [facility] MMR Unknown Completed [facility] Meningococcal Vaccine Unknown Completed [facility] Tetanus/Diptheria Unknown Completed [facility] PPD (TB) Unknown Completed [facility] Smallpox Unknown Completed [facility] Varicella (varivax)(chicken pox) Unknown Completed [facility] Zoster(Zostavax)( ingles) Unknown Completed [facility] Pneumococcal 20 Conjugate, PCV20 (Prevnar 20) Unknown Completed [facility] Hepatitis A Adult Unknown [facility] Influenza Virus Vaccine Quad IM, Preserv and ABX Free 6 MO-64 YRS (FLUCELVAX) Unknown Completed [facility] SARS-COV-2 COVID 19 UMESH SUCROSE VACCINE 12+, [id number], 0.3 ML (30 MCG), IM PFIZER (LANGSTON TOP) Unknown Completed [facility] Influenza Virus Vaccine Quad IM 3+ YRS Unknown Completed [facility] Influenza Virus Vaccine (3+ yrs) Unknown Completed [facility] Pneumococcal 13 Conjugate, PCV13 (Prevnar 13) Unknown Completed [facility] Pneumococcal Polysaccharide, PPSV23 (PNEUMOVAX) Unknown Completed [facility] TDAP Unknown Completed [facility] Zoster Vaccine Recombinant Unknown Completed [facility] Anthrax Vaccine Unknown Completed [facility] SARS-COV-2 COVID-19 PFIZER VACCINE Unknown Completed [facility] SARS-COV-2 COVID-19 UMESH-SUCROSE VACCINE 12 YRS+, BIVALENT 0.3ML, IM, (PFIZER LANGSTON TOP) Unknown Completed [facility] HEP B, Adult Dosage Unknown Completed [facility] Influenza Virus Vaccine Nasal Unknown Completed [facility] Flu Split Virus, PSA Unknown Completed [facility] Influenza Virus Vaccine Unknown Completed [facility] Flu Whole Virus Unknown Completed [facility] Influenza Virus Vaccine Quad Nasal (Flumist) Unknown Completed [facility] Flu Trivalent Unknown Completed [facility] MMR Unknown Completed [facility] Meningococcal Vaccine Unknown Completed [facility] Tetanus/Diptheria Unknown Completed [facility] PPD (TB) Unknown Completed [facility] Smallpox Unknown Completed [facility] Varicella (varivax)(chicken pox) Unknown Completed [facility] Zoster(Zostavax)(Sh ingles) Unknown Completed [facility] Pneumococcal 20 Conjugate, PCV20 (Prevnar 20) Unknown Completed [facility] Hepatitis A Adult Unknown Completed [facility] Influenza Virus Vaccine Quad IM, Preserv and ABX Free 6 MO-64 YRS (FLUCELVAX) Unknown Completed [facility] SARS-COV-2 COVID 19 UMESH SUCROSE VACCINE 12+, [id number], 0.3 ML (30 MCG), IM PFIZER (LANGSTON TOP) Unknown Completed [facility] Typhoid Vaccine, Vi Capsular Polysaccharide, IM Unknown Completed [facility] Influenza Virus Vaccine (3+ yrs) Unknown Completed [facility] Pneumococcal 13 Conjugate, PCV13 (Prevnar 13) Unknown Completed [facility] Influenza Virus Vaccine Quad IM 3+ YRS Unknown Completed [facility] SARS-COV-2 COVID-19 UMESH-SUCROSE VACCINE 12 YRS+, BIVALENT 0.3ML, IM, (PFIZER LANGSTON TOP) Unknown Completed [facility] Influenza Virus Vaccine Unknown Completed [facility] Flu Whole Virus Unknown Completed [facility] Influenza Virus Vaccine Quad Nasal (Flumist) Unknown Completed [facility] Meningococcal Vaccine Unknown Completed [facility] Tetanus/Diptheria Unknown Completed [facility] Smallpox Unknown Completed [facility] Varicella (varivax)(chicken pox) Unknown Completed [facility] Zoster(Zostavax)(Sh ingles) Unknown Completed [facility] Pneumococcal 20 Conjugate, PCV20 (Prevnar 20) Unknown Completed [facility] Influenza Virus Vaccine Quad IM, Preserv and ABX Free 6 MO-64 YRS (FLUCELVAX) Unknown Completed [facility] SARS-COV-2 COVID 19 UMESH SUCROSE VACCINE 12+, [id number], 0.3 ML (30 MCG), IM PFIZER (LANGSTON TOP) Unknown Completed [facility] Influenza Virus Vaccine Quad IM 3+ YRS Unknown Completed [facility] Influenza Virus Vaccine (3+ yrs) Unknown Completed [facility] Pneumococcal Polysaccharide, PPSV23 (PNEUMOVAX) Unknown Completed [facility] TDAP Unknown Completed [facility] Pneumococcal 13 Conjugate, PCV13 (Prevnar 13) Unknown Completed [facility] Zoster Vaccine Recombinant Unknown Completed [facility] Anthrax Vaccine Unknown Completed [facility] Pneumococcal Polysaccharide, PPSV23 (PNEUMOVAX) Unknown Completed [facility] SARS-COV-2 COVID-19 PFIZER VACCINE Unknown Completed [facility] HEP B, Adult Dosage Unknown Completed [facility] Influenza Virus Vaccine Nasal Unknown Completed [facility] Flu Split Virus, PSA Unknown Completed [facility] TDAP Unknown Completed [facility]alent [facility] PPD (TB) Unknown Completed [facility] Hepatitis A Adult Unknown Completed [facility] Typhoid Vaccine, Vi Capsular Polysaccharide, IM Unknown Completed [facility] Zoster Vaccine Recombinant Unknown Completed [facility] Anthrax Vaccine Unknown Completed [facility] SARS-COV-2 COVID-19 PFIZER VACCINE Unknown Completed [facility] SARS-COV-2 COVID-19 UMESH-SUCROSE VACCINE 12 YRS+, BIVALENT 0.3ML, IM, (PFIZER LANGSTON TOP) Unknown Completed [facility] HEP B, Adult Dosage Unknown Completed [facility] Influenza Virus Vaccine Quad IM 3+ YRS Unknown Completed [facility] Influenza Virus Vaccine (3+ yrs) Unknown Completed [facility] Pneumococcal 13 Conjugate, PCV13 (Prevnar 13) Unknown Completed [facility] Pneumococcal Polysaccharide, PPSV23 (PNEUMOVAX) Unknown Completed [facility] TDAP Unknown Completed [facility] Zoster Vaccine Recombinant Unknown Completed [facility] Anthrax Vaccine Unknown Completed [facility] SARS-COV-2 COVID-19 PFIZER VACCINE Unknown Completed [facility] SARS-COV-2 COVID-19 UMESH-SUCROSE VACCINE 12 YRS+, BIVALENT 0.3ML, IM, (PFIZER LANGSTON TOP) Unknown Completed [facility] HEP B, Adult Dosage Unknown Completed [facility] Influenza Virus Vaccine Nasal Unknown Completed [facility] Influenza Virus Vaccine Nasal Unknown Completed [facility] Flu Split Virus, PSA Unknown Completed [facility] Influenza Virus Vaccine Unknown Completed [facility] Flu Whole Virus Unknown Completed [facility] Influenza Virus Vaccine Quad Nasal (Flumist) Unknown Completed [facility] Flu Trivalent Unknown Completed [facility] MMR Unknown Completed [facility] Meningococcal Vaccine Unknown Completed [facility] Tetanus/Diptheria Unknown Completed [facility] PPD (TB) Unknown Completed [facility] Smallpox Unknown Completed [facility] Varicella (varivax)(chicken pox) Unknown Completed [facility] Zoster(Zostavax)(Sh ingles) Unknown Completed [facility] Pneumococcal 20 Conjugate, PCV20 (Prevnar 20) Unknown Completed [facility] Hepatitis A Adult Unknown Completed [facility] Influenza Virus Vaccine Quad IM, Preserv and ABX Free 6 MO-64 YRS (FLUCELVAX) Unknown Completed [facility] SARS-COV-2 COVID 19 UMESH SUCROSE VACCINE 12+, [id number], 0.3 ML (30 MCG), IM PFIZER (LANGSTON TOP) Unknown Completed [facility] Typhoid Vaccine, Vi Capsular Polysaccharide, IM Unknown Completed [facility] Flu Split Virus, PSA Unknown Completed [facility] Influenza Virus Vaccine Quad IM 3+ YRS Unknown Completed [facility] Influenza Virus Vaccine (3+ yrs) Unknown Completed [facility] Pneumococcal 13 Conjugate, PCV13 (Prevnar 13) Unknown Completed [facility] Pneumococcal Polysaccharide, PPSV23 (PNEUMOVAX) Unknown Completed [facility] TDAP Unknown Completed [facility] Zoster Vaccine Recombinant Unknown Completed [facility] Anthrax Vaccine Unknown Completed [facility] SARS-COV-2 COVID-19 PFIZER VACCINE Unknown Completed [facility] SARS-COV-2 COVID-19 UMESH-SUCROSE VACCINE 12 YRS+, BIVALENT 0.3ML, IM, (PFIZER LANGSTON TOP) Unknown Completed [facility] HEP B, Adult Dosage Unknown Completed [facility] Influenza Virus Vaccine Unknown Completed [facility] Influenza Virus Vaccine Nasal Unknown Completed [facility] Flu Split Virus, PSA Unknown Completed [facility] Flu Whole Virus Unknown Completed [facility] Influenza Virus Vaccine Unknown Completed [facility] Flu Whole Virus Unknown Completed [facility] Influenza Virus Vaccine Quad Nasal (Flumist) Unknown Completed [facility] Flu Trivalent Unknown Completed [facility] Influenza Virus Vaccine Quad Nasal (Flumist) Unknown Completed [facility] MMR Unknown Completed [facility] Meningococcal Vaccine Unknown Completed [facility] Tetanus/Diptheria Unknown Completed [facility] PPD (TB) Unknown Completed [facility] Flu Trivalent Unknown Completed [facility] Smallpox Unknown Completed [facility] Varicella (varivax)(chicken pox) Unknown Completed [facility] Zoster(Zostavax)(Sh ingles) Unknown Completed [facility] Pneumococcal 20 Conjugate, PCV20 (Prevnar 20) Unknown Completed [facility] Hepatitis A Adult [facility] Quad IM, Preserv and ABX Free 6 MO-64 YRS (FLUCELVAX) Unknown Completed [facility] SARS-COV-2 COVID 19 UMESH SUCROSE VACCINE 12+, [id number], 0.3 ML (30 MCG), IM PFIZER (LANGSTON TOP) Unknown Completed [facility] Typhoid Vaccine, Vi Capsular Polysaccharide, IM Unknown Completed [facility] MMR Unknown Completed [facility] Influenza Virus Vaccine Quad IM 3+ YRS Unknown Completed [facility] Influenza Virus Vaccine (3+ yrs) Unknown Completed [facility] Pneumococcal 13 Conjugate, PCV13 (Prevnar 13) Unknown Completed [facility] Pneumococcal Polysaccharide, PPSV23 (PNEUMOVAX) Unknown Completed [facility] TDAP Unknown Completed [facility] Meningococcal Vaccine Unknown Completed [facility] Zoster Vaccine Recombinant Unknown Completed [facility] Anthrax Vaccine Unknown Completed [facility] Tetanus/Diptheria Unknown Completed Un [facility] SARS-COV-2 COVID-19 PFIZER VACCINE Unknown Completed [facility] SARS-COV-2 COVID-19 UMESH-SUCROSE VACCINE 12 YRS+, BIVALENT 0.3ML, IM, (PFIZER LANGSTON TOP) Unknown Completed [facility] HEP B, Adult Dosage Unknown Completed [facility] PPD (TB) Unknown Completed [facility] Influenza Virus Vaccine Nasal Unknown Completed [facility] Flu Split Virus, PSA Unknown Completed [facility] Influenza Virus Vaccine Unknown Completed [facility] Flu Whole Virus Unknown Completed [facility] Influenza Virus Vaccine Quad Nasal (Flumist) Unknown Completed [facility] Flu Trivalent Unknown Completed [facility] MMR Unknown Completed [facility] Meningococcal Vaccine Unknown Completed [facility] Tetanus/Diptheria Unknown Completed [facility] PPD (TB) Unknown Completed [facility] Smallpox Unknown Completed [facility] Varicella (varivax)(chicken pox) Unknown Completed [facility] Zoster(Zostavax)(Sh ingles) Unknown Completed [facility] Pneumococcal 20 Conjugate, PCV20 (Prevnar 20) Unknown Completed [facility] Hepatitis A Adult [facility] Vaccine Quad IM, Preserv and ABX Free 6 MO-64 YRS (FLUCELVAX) Unknown Completed [facility] SARS-COV-2 COVID 19 UMESH SUCROSE VACCINE 12+, [id number], 0.3 ML (30 MCG), IM PFIZER (LANGSTON TOP) Unknown Completed [facility] Typhoid Vaccine, Vi Capsular Polysaccharide, IM Unknown Completed [facility] Influenza Virus Vaccine Quad IM 3+ YRS Unknown Completed [facility] Influenza Virus Vaccine (3+ yrs) Unknown Completed [facility] Pneumococcal 13 Conjugate, PCV13 (Prevnar 13) Unknown Completed [facility] Pneumococcal Polysaccharide, PPSV23 (PNEUMOVAX) Unknown Completed [facility] TDAP Unknown Completed [facility] Zoster Vaccine Recombinant Unknown Completed [facility] Anthrax Vaccine Unknown Completed [facility] SARS-COV-2 COVID-19 PFIZER VACCINE Unknown Completed [facility] SARS-COV-2 COVID-19 UMESH-SUCROSE VACCINE 12 YRS+, BIVALENT 0.3ML, IM, (PFIZER LANGSTON TOP) Unknown Completed [facility] HEP B, Adult Dosage Unknown Completed [facility] Smallpox Unknown Completed [facility] Influenza Virus Vaccine Nasal Unknown Completed [facility] Flu Split Virus, PSA Unknown Completed [facility] Varicella (varivax)(chicken pox) Unknown Completed [facility] Influenza Virus Vaccine Unknown Completed [facility] Flu Whole Virus Unknown Completed [facility] Influenza Virus Vaccine Quad Nasal (Flumist) Unknown Completed [facility] Flu Trivalent Unknown Completed [facility] MMR Unknown Completed [facility] Meningococcal Vaccine Unknown Completed [facility] Zoster(Zostavax)(Sh ingles) Unknown Completed [facility] Tetanus/Diptheria Unknown Completed Un [facility] PPD (TB) Unknown Completed [facility] Smallpox Unknown Completed [facility] Varicella (varivax)(chicken pox) Unknown Completed [facility] Zoster(Zostavax)(Sh ingles) Unknown Completed [facility] Pneumococcal 20 Conjugate, PCV20 (Prevnar 20) Unknown Completed [facility] Hepatitis A Adult Unknown [facility] Influ[facility] Virus Vaccine Quad IM, Preserv and ABX Free 6 MO-64 YRS (FLUCELVAX) Unknown Completed [facility] SARS-COV-2 COVID 19 UMESH SUCROSE VACCINE 12+, [id number], 0.3 ML (30 MCG), IM PFIZER (LANGSTON TOP) Unknown Completed [facility] Typhoid Vaccine, Vi Capsular Polysaccharide, IM Unknown Completed [facility] Influenza Virus Vaccine Quad IM 3+ YRS Unknown Completed [facility] Influenza Virus Vaccine (3+ yrs) Unknown Completed [facility] Pneumococcal 13 Conjugate, PCV13 (Prevnar 13) Unknown Completed [facility] Pneumococcal Polysaccharide, PPSV23 (PNEUMOVAX) Unknown Completed [facility] TDAP Unknown Completed [facility] Zoster Vaccine Recombinant Unknown Completed [facility] Anthrax Vaccine Unknown Completed [facility] SARS-COV-2 COVID-19 PFIZER VACCINE Unknown Completed [facility] SARS-COV-2 COVID-19 UMESH-SUCROSE VACCINE 12 YRS+, BIVALENT 0.3ML, IM, (PFIZER LANGSTON TOP) Unknown Completed [facility] HEP B, Adult Dosage Unknown Completed [facility] Influenza Virus Vaccine Nasal Unknown Completed [facility] Flu Split Virus, PSA Unknown Completed [facility] Influenza Virus Vaccine Unknown Completed [facility] Flu Whole Virus Unknown Completed [facility] Influenza Virus Vaccine Quad Nasal (Flumist) Unknown Completed [facility] Flu Trivalent Unknown Completed [facility] MMR Unknown Completed [facility] Meningococcal Vaccine Unknown Completed [facility] Tetanus/Diptheria Unknown Completed Un [facility] PPD (TB) Unknown Completed [facility] Smallpox Unknown Completed [facility] Varicella (varivax)(chicken pox) Unknown Completed [facility] Zoster(Zostavax)(Sh ingles) Unknown Completed [facility] Pneumococcal 20 Conjugate, PCV20 (Prevnar 20) Unknown Completed [facility] Hepatitis A Adult [facility] Vaccine Quad IM, Preserv and ABX Free 6 MO-64 YRS (FLUCELVAX) Unknown Completed [facility] SARS-COV-2 COVID 19 UMESH SUCROSE VACCINE 12+, [id number], 0.3 ML (30 MCG), IM PFIZER (LANGSTON TOP) Unknown Completed [facility] Typhoid Vaccine, Vi Capsular Polysaccharide, IM Unknown Completed [facility] Influenza Virus Vaccine Quad IM 3+ YRS Unknown Completed [facility] Influenza Virus Vaccine (3+ yrs) Unknown Completed [facility] Pneumococcal 13 Conjugate, PCV13 (Prevnar 13) Unknown Completed [facility] Pneumococcal Polysaccharide, PPSV23 (PNEUMOVAX) Unknown Completed [facility] TDAP Unknown Completed [facility] Zoster Vaccine Recombinant Unknown Completed [facility] Anthrax Vaccine Unknown Completed [facility] SARS-COV-2 COVID-19 PFIZER VACCINE Unknown Completed [facility] SARS-COV-2 COVID-19 UMESH-SUCROSE VACCINE 12 YRS+, BIVALENT 0.3ML, IM, (PFIZER LANGSTON TOP) Unknown Completed [facility] HEP B, Adult Dosage Unknown Completed [facility] Influenza Virus Vaccine Nasal Unknown Completed [facility] Flu Split Virus, PSA Unknown Completed [facility] Influenza Virus Vaccine Unknown Completed [facility] Flu Whole Virus Unknown Completed [facility] Influenza Virus Vaccine Quad Nasal (Flumist) Unknown Completed [facility] Flu Trivalent Unknown Completed [facility] MMR Unknown Completed [facility] Meningococcal Vaccine Unknown Completed [facility] Tetanus/Diptheria Unknown Completed Un [facility] PPD (TB) Unknown Completed [facility] Smallpox Unknown Completed [facility] Varicella (varivax)(chicken pox) Unknown Completed [facility] Zoster(Zostavax)(Sh ingles) Unknown Completed [facility] Pneumococcal 20 Conjugate, PCV20 (Prevnar 20) Unknown Completed [facility] Hepatitis A Adult Unknown Completed Un [facility] Influenza Virus Vaccine Quad IM, Preserv and ABX Free 6 MO-64 YRS (FLUCELVAX) Unknown Completed [facility] SARS-COV-2 COVID 19 UMESH SUCROSE VACCINE 12+, [id number], 0.3 ML (30 MCG), IM PFIZER (LANGSTON TOP) Unknown Completed [facility] Typhoid Vaccine, Vi Capsular Polysaccharide, IM Unknown Completed [facility] Influenza Virus Vaccine Quad IM 3+ YRS Unknown Completed [facility] Influenza Virus Vaccine (3+ yrs) Unknown Completed [facility] Pneumococcal 13 Conjugate, PCV13 (Prevnar 13) Unknown Completed [facility] Pneumococcal Polysaccharide, PPSV23 (PNEUMOVAX) Unknown Completed [facility] TDAP Unknown Completed [facility] Zoster Vaccine Recombinant Unknown Completed [facility] Anthrax Vaccine Unknown Completed [facility] SARS-COV-2 COVID-19 PFIZER VACCINE Unknown Completed [facility] SARS-COV-2 COVID-19 UMESH-SUCROSE VACCINE 12 YRS+, BIVALENT 0.3ML, IM, (PFIZER LANGSTON TOP) Unknown Completed [facility] HEP B, Adult Dosage Unknown Completed [facility] Influenza Virus Vaccine Nasal Unknown Completed [facility] Flu Split Virus, PSA Unknown Completed [facility] Influenza Virus Vaccine Unknown Completed [facility] Flu Whole Virus [facility]ine [facility] Nasal (Flumist) Unknown Completed [facility] Flu Trivalent Unknown Completed [facility] MMR Unknown Completed [facility] Meningococcal Vaccine Unknown Completed [facility] Tetanus/Diptheria Unknown Completed Un [facility] PPD (TB) Unknown Completed [facility] Influenza Virus Vaccine Quad IM 3+ YRS Unknown Completed [facility] Smallpox Unknown Completed [facility] Varicella (varivax)(chicken pox) Unknown Completed [facility] Zoster(Zostavax)(Sh ingles) Unknown Completed [facility] Pneumococcal 20 Conjugate, PCV20 (Prevnar 20) Unknown Completed [facility] Hepatitis A Adult [facility] Vaccine Quad IM, Preserv and ABX Free 6 MO-64 YRS (FLUCELVAX) Unknown Completed [facility] SARS-COV-2 COVID 19 UMESH SUCROSE VACCINE 12+, [id number], 0.3 ML (30 MCG), IM PFIZER (LANGSTON TOP) Unknown Completed [facility] Typhoid Vaccine, Vi Capsular Polysaccharide, IM Unknown Completed [facility] Influenza Virus Vaccine Quad IM 3+ YRS Unknown Completed [facility] Influenza Virus Vaccine (3+ yrs) Unknown Completed [facility] Pneumococcal 13 Conjugate, PCV13 (Prevnar 13) Unknown Completed [facility] Pneumococcal Polysaccharide, PPSV23 (PNEUMOVAX) Unknown Completed [facility] TDAP Unknown Completed [facility] Zoster Vaccine Recombinant Unknown Completed [facility] Anthrax Vaccine Unknown Completed [facility] SARS-COV-2 COVID-19 PFIZER VACCINE Unknown Completed [facility] SARS-COV-2 COVID-19 UMESH-SUCROSE VACCINE 12 YRS+, BIVALENT 0.3ML, IM, (PFIZER LANGSTON TOP) Unknown Completed [facility] HEP B, Adult Dosage Unknown Completed [facility] Influenza Virus Vaccine (3+ yrs) Unknown Completed [facility] Influenza Virus Vaccine Nasal Unknown Completed [facility] Flu Split Virus, PSA Unknown Completed [facility] Pneumococcal 13 Conjugate, PCV13 (Prevnar 13) Unknown Completed [facility] Influenza Virus Vaccine Unknown Completed [facility] Flu Whole Virus Unknown Completed [facility] Influenza Virus Vaccine Quad Nasal (Flumist) Unknown Completed [facility] Flu Trivalent Unknown Completed [facility] MMR Unknown Completed [facility] Pneumococcal Polysaccharide, PPSV23 (PNEUMOVAX) Unknown Completed [facility] Meningococcal Vaccine Unknown Completed [facility] Tetanus/Diptheria Unknown Completed Un [facility] PPD (TB) Unknown Completed [facility] Smallpox Unknown Completed [facility] Varicella (varivax)(chicken pox) Unknown Completed [facility] Zoster(Zostavax)(Sh ingles) Unknown Completed [facility] Pneumococcal 20 Conjugate, PCV20 (Prevnar 20) Unknown Completed [facility] Hepatitis A Adult Unknown Completed [facility] TDAP Unknown Completed [facility] Influenza Virus Vaccine Quad IM, Preserv and ABX Free 6 MO-64 YRS (FLUCELVAX) Unknown Completed [facility] SARS-COV-2 COVID 19 UMESH SUCROSE VACCINE 12+, [id number], 0.3 ML (30 MCG), IM PFIZER (LANGSTON TOP) Unknown Completed [facility] Typhoid Vaccine, Vi Capsular Polysaccharide, IM Unknown Completed [facility] Influenza Virus Vaccine Quad IM 3+ YRS Unknown Completed [facility] Influenza Virus Vaccine (3+ yrs) Unknown Completed [facility] Pneumococcal 13 Conjugate, PCV13 (Prevnar 13) Unknown Completed [facility] Pneumococcal Polysaccharide, PPSV23 (PNEUMOVAX) Unknown Completed [facility] TDAP Unknown Completed [facility] Zoster Vaccine Recombinant Unknown Completed [facility] Anthrax Vaccine Unknown Completed [facility] SARS-COV-2 COVID-19 PFIZER VACCINE Unknown Completed [facility] Zoster Vaccine Recombinant Unknown Completed [facility] SARS-COV-2 COVID-19 UMESH-SUCROSE VACCINE 12 YRS+, BIVALENT 0.3ML, IM, (PFIZER LANGSTON TOP) Unknown Completed [facility] HEP B, Adult Dosage Unknown Completed [facility] Influenza Virus Vaccine Nasal Unknown Completed [facility] Flu Split Virus, PSA Unknown Completed [facility] Influenza Virus Vaccine Unknown Completed [facility] Flu Whole Virus [facility] Vaccine Quad Nasal (Flumist) Unknown Completed [facility] Flu Trivalent [facility] Completed [facility] Meningococcal Vaccine Unknown Completed [facility] Tetanus/Diptheria Unknown Completed Un [facility] PPD (TB) Unknown Completed [facility] Smallpox Unknown Completed [facility] Varicella (varivax)(chicken pox) Unknown Completed [facility] Zoster(Zostavax)(Sh ingles) Unknown Completed [facility] Anthrax Vaccine Unknown Completed [facility] Pneumococcal 20 Conjugate, PCV20 (Prevnar 20) Unknown Completed [facility] Hepatitis A Adult Unknown [facility] Influenza Virus Vaccine Quad IM, Preserv and ABX Free 6 MO-64 YRS (FLUCELVAX) Unknown Completed [facility] SARS-COV-2 COVID 19 UMESH SUCROSE VACCINE 12+, [id number], 0.3 ML (30 MCG), IM PFIZER (LANGSTON TOP) Unknown Completed [facility] Typhoid Vaccine, Vi Capsular Polysaccharide, IM Unknown Completed [facility] Influenza Virus Vaccine Quad IM 3+ YRS Unknown Completed [facility] Influenza Virus Vaccine (3+ yrs) Unknown Completed [facility] Pneumococcal 13 Conjugate, PCV13 (Prevnar 13) Unknown Completed [facility] Pneumococcal Polysaccharide, PPSV23 (PNEUMOVAX) Unknown Completed [facility] TDAP Unknown Completed [facility] Zoster Vaccine Recombinant Unknown Completed [facility] Anthrax Vaccine Unknown Completed [facility] SARS-COV-2 COVID-19 PFIZER VACCINE Unknown Completed [facility] SARS-COV-2 COVID-19 UMESH-SUCROSE VACCINE 12 YRS+, BIVALENT 0.3ML, IM, (PFIZER LANGSTON TOP) Unknown Completed [facility] HEP B, Adult Dosage Unknown Completed [facility] Influenza Virus Vaccine Nasal Unknown Completed [facility] SARS-COV-2 COVID-19 PFIZER VACCINE Unknown Completed [facility] Flu Split Virus, PSA Unknown Completed [facility] Influenza Virus Vaccine Unknown Completed [facility] Flu Whole Virus Unknown Completed [facility] Influenza Virus Vaccine Quad Nasal (Flumist) Unknown Completed [facility] Flu Trivalent Unknown Completed [facility] MMR Unknown Completed [facility] Meningococcal Vaccine Unknown Completed [facility] Tetanus/Diptheria Unknown Completed Un [facility] PPD (TB) Unknown Completed [facility] Smallpox Unknown Completed [facility] Varicella (varivax)(chicken pox) Unknown Completed [facility] Zoster(Zostavax)(Sh ingles) Unknown Completed [facility] Pneumococcal 20 Conjugate, PCV20 (Prevnar 20) Unknown Completed [facility] SARS-COV-2 COVID-19 UMESH-SUCROSE VACCINE 12 YRS+, BIVALENT 0.3ML, IM, (PFIZER LANGSTON TOP) Unknown Completed [facility] Hepatitis A Adult Unknown Completed Un [facility] Influenza Virus Vaccine Quad IM, Preserv and ABX Free 6 MO-64 YRS (FLUCELVAX) Unknown Completed [facility] SARS-COV-2 COVID 19 UMESH SUCROSE VACCINE 12+, [id number], 0.3 ML (30 MCG), IM PFIZER (LANGSTON TOP) Unknown Completed [facility] Typhoid Vaccine, Vi Capsular Polysaccharide, IM Unknown Completed [facility] HEP B, Adult Dosage Unknown Completed [facility] Influenza Virus Vaccine Quad IM 3+ YRS Unknown Completed [facility] Influenza Virus Vaccine (3+ yrs) Unknown Completed [facility] Pneumococcal 13 Conjugate, PCV13 (Prevnar 13) Unknown Completed [facility] Pneumococcal Polysaccharide, PPSV23 (PNEUMOVAX) Unknown Completed [facility] TDAP Unknown Completed [facility] Zoster Vaccine Recombinant Unknown Completed [facility] Anthrax Vaccine Unknown Completed [facility] SARS-COV-2 COVID-19 PFIZER VACCINE Unknown Completed [facility] SARS-COV-2 COVID-19 UMESH-SUCROSE VACCINE 12 YRS+, BIVALENT 0.3ML, IM, (PFIZER LANGSTON TOP) Unknown Completed [facility] HEP B, Adult Dosage Unknown Completed [facility] Influenza Virus Vaccine Nasal Unknown Completed [facility] Influenza Virus Vaccine Nasal Unknown Completed [facility] Flu Split Virus, PSA Unknown Completed [facility] Influenza Virus Vaccine Unknown Completed [facility] Flu Whole Virus [facility] Vaccine Quad Nasal (Flumist) Unknown Com[facility]alent [facility] Meningococcal Vaccine Unknown Completed [facility] Tetanus/Diptheria Unknown Completed [facility] PPD (TB) Unknown Completed [facility] Smallpox Unknown Completed [facility] Varicella (varivax)(chicken pox) Unknown Completed [facility] Zoster(Zostavax)(Sh ingles) Unknown Completed [facility] Pneumococcal 20 Conjugate, PCV20 (Prevnar 20) Unknown Completed [facility] Hepatitis A Adult Unknown Completed [facility] Flu Split Virus, PSA Unknown Completed [facility] Influenza Virus Vaccine Quad IM, Preserv and ABX Free 6 MO-64 YRS (FLUCELVAX) Unknown Completed [facility] SARS-COV-2 COVID 19 UMESH SUCROSE VACCINE 12+, [id number], 0.3 ML (30 MCG), IM PFIZER (LANGSTON TOP) Unknown Completed [facility] Typhoid Vaccine, Vi Capsular Polysaccharide, IM Unknown Completed [facility] Influenza Virus Vaccine Quad IM 3+ YRS Unknown Completed [facility] Influenza Virus Vaccine (3+ yrs) Unknown Completed [facility] Pneumococcal 13 Conjugate, PCV13 (Prevnar 13) Unknown Completed [facility] Pneumococcal Polysaccharide, PPSV23 (PNEUMOVAX) Unknown Completed [facility] TDAP Unknown Completed [facility] Zoster Vaccine Recombinant Unknown Completed [facility] Anthrax Vaccine Unknown Completed [facility] SARS-COV-2 COVID-19 PFIZER VACCINE Unknown Completed [facility] SARS-COV-2 COVID-19 UMESH-SUCROSE VACCINE 12 YRS+, BIVALENT 0.3ML, IM, (PFIZER LANGSTON TOP) Unknown Completed [facility] HEP B, Adult Dosage Unknown Completed [facility] Influenza Virus Vaccine Nasal Unknown Completed [facility] Flu Split Virus, PSA Unknown Completed [facility] Influenza Virus Vaccine Unknown Completed [facility] Flu Whole Virus Unknown Completed [facility] Influenza Virus Vaccine Quad Nasal (Flumist) Unknown Completed [facility]alent [facility]ine [facility] MMR Unknown Completed [facility] Meningococcal Vaccine Unknown Completed [facility] Tetanus/Diptheria Unknown Completed [facility] PPD (TB) Unknown Completed [facility] Flu Whole Virus Unknown Completed [facility] Smallpox Unknown Completed [facility] Varicella (varivax)(chicken pox) Unknown Completed [facility] Zoster(Zostavax)(Sh ingles) Unknown Completed [facility] Pneumococcal 20 Conjugate, PCV20 (Prevnar 20) Unknown Completed [facility] Hepatitis A Adult Unknown [facility] Influ[facility] Virus Vaccine Quad Nasal (Flumist) Unknown Completed [facility] Influenza Virus Vaccine Quad IM, Preserv and ABX Free 6 MO-64 YRS (FLUCELVAX) Unknown Completed [facility] SARS-COV-2 COVID 19 UMESH SUCROSE VACCINE 12+, [id number], 0.3 ML (30 MCG), IM PFIZER (LANGSTON TOP) Unknown Completed [facility] Typhoid Vaccine, Vi Capsular Polysaccharide, IM Unknown [facility] [facility] Flu Trivalent Unknown Completed [facility] Influenza Virus Vaccine Quad IM 3+ YRS Unknown Completed [facility] Influenza Virus Vaccine (3+ yrs) Unknown Completed [facility] Pneumococcal 13 Conjugate, PCV13 (Prevnar 13) Unknown Completed [facility] Pneumococcal Polysaccharide, PPSV23 (PNEUMOVAX) Unknown Completed [facility] TDAP Unknown Completed [facility] Zoster Vaccine Recombinant Unknown Completed [facility] Anthrax Vaccine Unknown Completed [facility] SARS-COV-2 COVID-19 PFIZER VACCINE Unknown Completed [facility] SARS-COV-2 COVID-19 UMESH-SUCROSE VACCINE 12 YRS+, BIVALENT 0.3ML, IM, (PFIZER LANGSTON TOP) Unknown Completed [facility] MMR Unknown Completed [facility] HEP B, Adult Dosage Unknown Completed [facility] Influenza Virus Vaccine Nasal Unknown Completed [facility] Flu Split Virus, PSA Unknown Completed [facility] Influenza Virus Vaccine Unknown Completed [facility] Flu Whole Virus Unknown Completed [facility] Influenza Virus Vaccine Quad Nasal (Flumist) Unknown Completed [facility] Flu Trivalent Unknown Completed Univer [facility] Meningococcal Vaccine Unknown Completed [facility] MMR Unknown Completed [facility] Meningococcal Vaccine Unknown Completed [facility] Tetanus/Diptheria [facility] Completed [facility] Tetanus/Diptheria Unknown Completed Un [facility] Smallpox Unknown Completed [facility] Varicella (varivax)(chicken pox) Unknown Completed [facility] Zoster(Zostavax)(Sh ingles) Unknown Completed [facility] Pneumococcal 20 Conjugate, PCV20 (Prevnar 20) Unknown Completed [facility] Hepatitis A Adult Unknown Completed Un [facility] PPD (TB) Unknown Completed [facility] Influenza Virus Vaccine Quad IM, Preserv and ABX Free 6 MO-64 YRS (FLUCELVAX) Unknown Completed [facility] SARS-COV-2 COVID 19 UMESH SUCROSE VACCINE 12+, [id number], 0.3 ML (30 MCG), IM PFIZER (LANGSTON TOP) Unknown Completed [facility] Typhoid Vaccine, Vi Capsular Polysaccharide, IM Unknown Completed [facility] Influenza Virus Vaccine Quad IM 3+ YRS Unknown Completed [facility] Influenza Virus Vaccine (3+ yrs) Unknown Completed [facility] Pneumococcal 13 Conjugate, PCV13 (Prevnar 13) Unknown Completed [facility] Pneumococcal Polysaccharide, PPSV23 (PNEUMOVAX) Unknown Completed [facility] TDAP Unknown Completed [facility] Zoster Vaccine Recombinant Unknown Completed [facility] Anthrax Vaccine Unknown Completed [facility] SARS-COV-2 COVID-19 PFIZER VACCINE Unknown Completed [facility] SARS-COV-2 COVID-19 UMESH-SUCROSE VACCINE 12 YRS+, BIVALENT 0.3ML, IM, (PFIZER LANGSTON TOP) Unknown Completed [facility] HEP B, Adult Dosage Unknown Completed [facility] Influenza Virus Vaccine Nasal Unknown Completed [facility] Flu Split Virus, PSA Unknown Completed [facility] Influenza Virus Vaccine Unknown Completed [facility] Flu Whole Virus Unknown Completed [facility] Influenza Virus Vaccine Quad Nasal (Flumist) Unknown Completed [facility] Flu Trivalent Unknown Completed [facility]iver [facility] MMR Unknown Completed [facility] Meningococcal Vaccine Unknown Completed [facility] Tetanus/Diptheria Unknown [facility] (TB) [facility] Completed [facility] Smallpox Unknown Completed [facility] Smallpox Unknown Completed [facility] Varicella (varivax)(chicken pox) Unknown Completed [facility] Zoster(Zostavax)(Sh ingles) Unknown Completed [facility] Pneumococcal 20 Conjugate, PCV20 (Prevnar 20) Unknown Completed [facility]atitis A Adult [facility] Quad IM, Preserv and ABX Free 6 MO-64 YRS (FLUCELVAX) Unknown Completed [facility] SARS-COV-2 COVID 19 UMESH SUCROSE VACCINE 12+, [id number], 0.3 ML (30 MCG), IM PFIZER (LANGSTON TOP) Unknown Completed [facility] Typhoid Vaccine, Vi Capsular Polysaccharide, IM Unknown Completed [facility] Varicella (varivax)(chicken pox) Unknown Completed [facility] Zoster(Zostavax)(Sh ingles) Unknown Completed [facility] Influenza Virus Vaccine Quad IM 3+ YRS Unknown Completed [facility] Pneumococcal 20 Conjugate, PCV20 (Prevnar 20) Unknown Completed [facility] Influenza Virus Vaccine (3+ yrs) Unknown Completed [facility] Pneumococcal 13 Conjugate, PCV13 (Prevnar 13) Unknown Completed [facility] Pneumococcal Polysaccharide, PPSV23 (PNEUMOVAX) Unknown Completed [facility] TDAP Unknown Completed [facility] Hepatitis A Adult Unknown [facility] Recombinant Unknown Completed [facility] Anthrax Vaccine Unknown [facility] SARS-COV-2 COVID-19 PFIZER VACCINE Unknown Completed [facility] SARS-COV-2 COVID-19 UMESH-SUCROSE VACCINE 12 YRS+, BIVALENT 0.3ML, IM, (PFIZER LANGSTON TOP) Unknown Completed [facility] HEP B, Adult Dosage Unknown Completed [facility] Influenza Virus Vaccine Nasal Unknown Completed [facility] Flu Split Virus, PSA Unknown Completed [facility] Influenza Virus Vaccine Quad IM, Preserv and ABX Free 6 MO-64 YRS (FLUCELVAX) Unknown Completed [facility] Influenza Virus Vaccine Unknown Completed [facility] Flu Whole Virus Unknown Completed [facility] Influenza Virus Vaccine Quad Nasal (Flumist) Unknown Completed [facility] Flu Trivalent Unknown Completed [facility] MMR Unknown Completed [facility] Meningococcal Vaccine Unknown Completed [facility] Vital Signs Vital Name Observation Time Observation Value Comments S ource Systolic blood pressure 2024-03-31 20:28:00 123 mm[Hg] [facility] Diastolic blood pressure 2024-03-31 20:28:00 83 mm[Hg] [facility] Heart rate 2024-03-31 20:28:00 83 /min Unive [facility] Respiratory rate 2024-03-31 20:28:00 16 /min [facility] Body height 2024-03-31 20:28:00 185.4 cm [facility] Body weight 2024-03-31 20:28:00 117.482 kg [facility] BMI 2024-03-31 20:28:00 34.17 kg/m2 [facility] Oxygen saturation in Arterial blood by Pulse oximetry 2024-03-31 20:28:00 98 /min [facility] Systolic blood pressure 2024-03-21 14:42:00 146 mm[Hg] [facility] Diastolic blood pressure 2024-03-21 14:42:00 91 mm[Hg] [facility] Heart rate 2024-03-21 14:42:00 66 /min [facility] Body temperature 2024-03-21 14:42:00 37 Noemy [facility] Respiratory rate 2024-03-21 14:42:00 16 /min [facility] Body height 2024-03-21 14:42:00 185.4 cm [facility] Body weight 2024-03-21 14:42:00 119.296 kg [facility] BMI 2024-03-21 14:42:00 34.70 kg/m2 [facility] Oxygen saturation in Arterial blood by Pulse oximetry 2024-03-21 14:42:00 98 /min [facility] Oxygen saturation in Arterial blood by Pulse oximetry 2024-02-12 15:55:00 99 /min [facility] Systolic blood pressure 2024-02-12 15:55:00 130 mm[Hg] [facility] Diastolic blood pressure 2024-02-12 15:55:00 88 mm[Hg] [facility] Heart rate 2024-02-12 15:55:00 75 /min Unive [facility] Body temperature 2024-02-12 15:55:00 37.44 Noemy [facility] Respiratory rate 2024-02-12 15:55:00 16 /min [facility] Body height 2024-02-12 15:55:00 185.4 cm [facility] Body weight 2024-02-12 15:55:00 118.207 kg [facility] BMI 2024-02-12 15:55:00 34.38 kg/m2 [facility] Systolic blood pressure 2024-01-15 15:46:00 131 mm[Hg] [facility] Diastolic blood pressure 2024-01-15 15:46:00 86 mm[Hg] [facility] Heart rate 2024-01-15 15:46:00 80 /min Unive [facility] Body temperature 2024-01-15 15:46:00 37.33 Noemy [facility] Respiratory rate 2024-01-15 15:46:00 16 /min [facility] Body height 2024-01-15 15:46:00 185.4 cm [facility] Body weight 2024-01-15 15:46:00 120.112 kg [facility] BMI 2024-01-15 15:46:00 34.94 kg/m2 [facility] Oxygen saturation in Arterial blood by Pulse oximetry 2024-01-15 15:46:00 97 /min [facility] Body weight 2023-12-25 14:19:00 113.399 kg [facility] BMI 2023-12-25 14:19:00 32.98 kg/m2 [facility] Systolic blood pressure 2023-12-07 18:02:00 124 mm[Hg] [facility] Diastolic blood pressure 2023-12-07 18:02:00 75 mm[Hg] [facility] Heart rate 2023-12-07 18:02:00 76 /min Un[facility] Body temperature 2023-12-07 18:02:00 36.33 Noemy [facility] Respiratory rate 2023-12-07 18:02:00 16 /min [facility] Oxygen saturation in Arterial blood by Pulse oximetry 2023-12-07 18:02:00 99 /min [facility] Body height 2023-12-07 16:22:00 185.4 cm [facility] Body weight 2023-12-07 16:22:00 113.399 kg [facility] BMI 2023-12-07 16:22:00 32.98 kg/m2 [facility] Systolic blood pressure 2023-11-05 18:10:00 121 mm[Hg] [facility] Diastolic blood pressure 2023-11-05 18:10:00 74 mm[Hg] [facility] Heart rate 2023-11-05 18:10:00 58 /min Unive [facility] Respiratory rate 2023-11-05 18:10:00 17 /min [facility] Oxygen saturation in Arterial blood by Pulse oximetry 2023-11-05 18:10:00 95 /min [facility] Body temperature 2023-11-05 17:30:00 36.22 Noemy [facility] Body height 2023-11-05 14:21:00 185.4 cm [facility] Body weight 2023-11-05 14:21:00 113.218 kg [facility] BMI 2023-11-05 14:21:00 32.93 kg/m2 [facility] Systolic blood pressure 2023-11-05 14:21:00 113 mm[Hg] [facility] Diastolic blood pressure 2023-11-05 14:21:00 78 mm[Hg] [facility] Heart rate 2023-11-05 14:21:00 64 /min Unive [facility] Body temperature 2023-11-05 14:21:00 36.11 Noemy [facility] Respiratory rate 2023-11-05 14:21:00 18 /min [facility] Body height 2023-11-05 14:21:00 185.4 cm [facility] Body weight 2023-11-05 14:21:00 113.218 kg [facility] BMI 2023-11-05 14:21:00 32.93 kg/m2 [facility] Oxygen saturation in Arterial blood by Pulse oximetry 2023-11-05 14:21:00 99 /min [facility] Systolic blood pressure 2023-09-28 19:20:00 118 mm[Hg] [facility] Diastolic blood pressure 2023-09-28 19:20:00 59 mm[Hg] [facility] Heart rate 2023-09-28 19:20:00 69 /min Unive [facility] Body temperature 2023-09-28 19:20:00 36.33 Noemy [facility] Respiratory rate 2023-09-28 19:20:00 18 /min [facility] Body height 2023-09-28 19:20:00 185.4 cm [facility] Body weight 2023-09-28 19:20:00 113.853 kg [facility] BMI 2023-09-28 19:20:00 33.12 kg/m2 [facility] Oxygen saturation in Arterial blood by Pulse oximetry 2023-09-28 19:20:00 99 /min [facility] Systolic blood pressure 2023-08-31 15:59:00 127 mm[Hg] [facility] Diastolic blood pressure 2023-08-31 15:59:00 81 mm[Hg] [facility] Heart rate 2023-08-31 15:59:00 69 /min Un[facility] Body temperature 2023-08-31 15:59:00 36.33 Noemy [facility] Respiratory rate 2023-08-31 15:59:00 16 /min [facility] Body height 2023-08-31 15:59:00 185.4 [facility] weight 2023-08-31 15:59:00 113.671 kg [facility] BMI 2023-08-31 15:59:00 33.06 kg/m2 [facility] Oxygen saturation in Arterial blood by Pulse oximetry 2023-08-31 15:59:00 99 /min [facility] Systolic blood pressure 2023-08-23 18:05:00 117 mm[Hg] [facility] Diastolic blood pressure 2023-08-23 18:05:00 77 mm[Hg] [facility] Heart rate 2023-08-23 18:05:00 82 /min Unive [facility] Body temperature 2023-08-23 18:05:00 36.72 Noemy [facility] Respiratory rate 2023-08-23 18:05:00 17 /min [facility] Body height 2023-08-23 18:05:00 185.4 cm [facility] Body weight 2023-08-23 18:05:00 114.851 kg [facility] BMI 2023-08-23 18:05:00 33.41 kg/m2 [facility] Oxygen saturation in Arterial blood by Pulse oximetry 2023-08-23 18:05:00 97 /min [facility] Systolic blood pressure 2023-06-25 18:59:00 119 mm[Hg] [facility] Diastolic blood pressure 2023-06-25 18:59:00 80 mm[Hg] [facility] Heart rate 2023-06-25 18:59:00 65 /min Unive [facility] Body temperature 2023-06-25 18:59:00 36.39 Noemy [facility] Respiratory rate 2023-06-25 18:59:00 17 /min [facility] Body height 2023-06-25 18:59:00 185.4 cm [facility] Body weight 2023-06-25 18:59:00 114.034 kg [facility] BMI 2023-06-25 18:59:00 33.17 kg/m2 [facility] Oxygen saturation in Arterial blood by Pulse oximetry 2023-06-25 18:59:00 99 /min [facility] Systolic blood pressure 2023-05-22 19:01:00 118 mm[Hg] [facility] Diastolic blood pressure 2023-05-22 19:01:00 78 mm[Hg] [facility] Heart rate 2023-05-22 19:01:00 72 /min Unive [facility] Body temperature 2023-05-22 19:01:00 36.83 Noemy [facility] Respiratory rate 2023-05-22 19:01:00 18 /min [facility] Body height 2023-05-22 19:01:00 185.4 cm [facility] Body weight 2023-05-22 19:01:00 114.397 kg [facility] BMI 2023-05-22 19:01:00 33.27 kg/m2 [facility] Oxygen saturation in Arterial blood by Pulse oximetry 2023-05-22 19:01:00 96 /min [facility] Systolic blood pressure 2023-04-25 19:43:00 128 mm[Hg] [facility] Diastolic blood pressure 2023-04-25 19:43:00 84 mm[Hg] [facility] Heart rate 2023-04-25 19:43:00 65 /[facility] 2023-04-25 19:43:00 35.67 Noemy [facility] Body height 2023-04-25 19:43:00 185.4 cm [facility] Body weight 2023-04-25 19:43:00 116.484 kg [facility] BMI 2023-04-25 19:43:00 33.88 kg/m2 [facility] Systolic blood pressure 2023-03-23 20:40:00 124 mm[Hg] [facility] Diastolic blood pressure 2023-03-23 20:40:00 83 mm[Hg] [facility] Heart rate 2023-03-23 20:40:00 72 /min Un[facility] Respiratory rate 2023-03-23 20:40:00 16 /min [facility] Oxygen saturation in Arterial blood by Pulse oximetry 2023-03-23 20:40:00 99 /min [facility] Body height 2023-03-23 20:38:00 185.4 cm [facility] Body weight 2023-03-23 20:38:00 116.121 kg [facility] BMI 2023-03-23 20:38:00 33.78 kg/m2 [facility] Systolic blood pressure 2023-02-27 19:24:00 124 mm[Hg] [facility] Diastolic blood pressure 2023-02-27 19:24:00 81 mm[Hg] [facility] Heart rate 2023-02-27 19:24:00 78 /min Un[facility] Body temperature 2023-02-27 19:24:00 36.89 Noemy [facility] Respiratory rate 2023-02-27 19:24:00 16 /min [facility] Body height 2023-02-27 19:24:00 185.4 cm [facility] Body weight 2023-02-27 19:24:00 116.711 kg [facility] BMI 2023-02-27 19:24:00 33.95 kg/m2 [facility] Oxygen saturation in Arterial blood by Pulse oximetry 2023-02-27 19:24:00 97 /min [facility] Systolic blood pressure 2023-02-13 21:06:00 122 mm[Hg] [facility] Diastolic blood pressure 2023-02-13 21:06:00 64 mm[Hg] [facility] Heart rate 2023-02-13 21:06:00 66 /min Unive [facility] Body temperature 2023-02-13 21:06:00 36.94 Noemy [facility] Body height 2023-02-13 21:06:00 185.4 cm [facility] Body weight 2023-02-13 21:06:00 116.574 kg [facility] BMI 2023-02-13 21:06:00 33.91 kg/m2 [facility] Oxygen saturation in Arterial blood by Pulse oximetry 2023-02-13 21:06:00 97 /min [facility] Systolic blood pressure 2022-10-03 15:16:00 124 mm[Hg] [facility] Diastolic blood pressure 2022-10-03 15:16:00 78 mm[Hg] [facility] Heart rate 2022-10-03 15:16:00 75 /min Un[facility] Body temperature 2022-10-03 15:14:00 35.72 Noemy [facility] Respiratory rate 2022-10-03 15:14:00 17 /min [facility] Body height 2022-10-03 15:14:00 185.4 cm [facility] Body weight 2022-10-03 15:14:00 110.768 kg [facility] BMI 2022-10-03 15:14:00 32.22 kg/m2 [facility] Oxygen saturation in Arterial blood by Pulse oximetry 2022-10-03 15:14:00 97 /min [facility] Systolic blood pressure 2022-05-17 20:45:00 120 mm[Hg] [facility] Diastolic blood pressure 2022-05-17 20:45:00 65 mm[Hg] [facility] Heart rate 2022-05-17 20:45:00 69 /min Un[facility] Body temperature 2022-05-17 20:45:00 37.06 Noemy [facility] Respiratory rate 2022-05-17 20:45:00 18 /min [facility] Body height 2022-05-17 20:45:00 185.4 cm [facility] Body weight 2022-05-17 20:45:00 109.135 kg [facility] BMI 2022-05-17 20:45:00 31.74 kg/m2 [facility] Oxygen saturation in Arterial blood by Pulse oximetry 2022-05-17 20:45:00 97 /min [facility] Body temperature 2021-01-10 16:41:00 36.5 Noemy [facility] Body weight 2021-01-10 16:41:00 110.678 kg [facility] Procedures Procedure Date / Time Performed Performing Clinician Source PROSTATIC SPECIFIC ANTIGEN 2024-03-21 15:46:00 Langston, [facility] LIPID PANEL (39663)(TOTAL CHOLESTEROL, TRIGLYCERIDES, HDL) 2024-03-21 15:46:00 Langston, [facility] GLUCOSE FASTING 2024-03-21 15:46:00 Langston, [facility] HCV ANTIBODY 2024-03-21 15:46:00 Langston, [facility] HIV 1/2 AG-AB WITH REFLEX 2024-03-21 15:46:00 Langston, [facility] FLU VACC (), 6 MO-6 4 YRS, .5ML, IM, TIV (FLUCELVAX) 2024-01-15 17:16:44 Doctor Unassigned, [place] [facility] OCT, RETINA - OU - BOTH EYES 2023-12-25 15:08:43 Miky Rothman [facility] COLONOSCOPY (ENDO) 2023-11-05 17:40:26 Kian [facility] COLONOSCOPY (ENDO) 2023-11-05 17:40:26 Kian [facility] EGD (ENDO) 2023-11-05 17:35:07 Kian [facility] EGD (ENDO) 2023-11-05 17:35:07 Kian [facility] [id number] - [place] COLONOSCOPY W/BIO PSY SINGLE/MULTIPLE 2023-11-05 16:30:00 Jose Lu [facility] ESOPHAGOGASTRODUODENOSCOPY 2023-11-05 16:30:00 Jose Lu [facility] GLYCOSYLATED HEMOGLOBIN (A1C) 2023-09-03 14:25:00 Nuvia Langston [facility] MR SHOULDER LEFT WO CONTRAST 2023-07-05 19:27:10 Nuvia Langston [facility] REFERRAL- REQUEST/RESPONSE 2023-06-29 13:30:19 Doctor Unassigned, [place] [facility] POCT MOLECULAR FLU 2023-06-25 [facility]23[facility]06-25 [facility]-COV-2 ANTIGEN (BIN AX NOW) 2023-06-25 19:08:00 [facility] REFERRAL- REQUEST/RESPONSE 2023-06-13 19:35:41 Doctor Unassigned, [place] [facility] REFERRAL- REQUEST/RESPONSE 2023-06-13 19:20:08 Doctor Unassigned, [place] [facility] REFERRAL- REQUEST/RESPONSE 2023-05-21 16:29:45 Doctor Unassigned, [place] [facility] REFERRAL- REQUEST/RESPONSE 2023-05-14 17:03:40 Doctor Unassigned, [place] [facility] REFERRAL- REQUEST/RESPONSE 2023-05-14 17:03:39 Doctor Unassigned, [place] [facility] MEDICAL RELEASE/CLEARANCE FORMS 05:01:00 Doctor Unassigned, [place] [facility] AUTHORIZATION FOR RELEASE OF PHI 2023-03 06:01:00 Doctor Unassigned, [place] [facility] INSURANCE CORRESPONDENCE 2023-03-20 06:01:00 Doctor Unassigned, [place] [facility] REFERRAL- REQUEST/RESPONSE 2023-03-12 06:01:00 Doctor Unassigned, [place] [facility] REFERRAL- REQUEST/RESPONSE 2023-02-26 06:01:00 Doctor Unassigned, [place] [facility] REFERRAL- REQUEST/RESPONSE 2023-02-07 06:01:00 Doctor Unassigned, [place] [facility] REFERRAL- REQUEST/RESPONSE 2023-01-26 06:01:00 Doctor Unassigned, [place] [facility] REFERRAL- REQUEST/RESPONSE 2022-11-27 05:01:00 Doctor Unassigned, [place] [facility] SLEEP STUDY DATA REPORT 2022-07-31 05:01:00 Doctor Unassigned, [place] [facility] ASSIGNMENT OF BENEFITS 2022-05-17 20:33:28 Doctor Unassigned, [place] [facility] EXTERNAL PROVIDER - ADC REFERRAL 2022-02 06:01:00 Doctor Unassigned, [place] [facility] AUTHORIZATION FOR RELEASE OF PHI 2021-03 06:01:00 Doctor Unassigned, [place] [facility] DME/SUPPLY JUSTIFICATION 2021-01-10 06:01:00 Doctor Unassigned, [place] [facility] Encounters Start Date/Time End Date/Time Encounter Type Admission Type Attending Clinicians Care Facility Care Department Encounter ID Source 2024-04-08 14:15:00 2024-04-08 14:15:00 Outpatient MIKY VIDAL [facility] [id number] [facility] 2024-03-31 14:30:00 2024-03-31 15:00:00 Office Visit Laura Beltran [facility] [id number] [facility] 2024-03-31 14:30:00 2024-03-31 14:30:00 Outpatient R LAURA BELTRAN [facility] [id number] [facility] 2024-03-26 00:00:00 2024-03-27 12:23:31 Patient Secure Nuvia Encinas [facility] [id number] [facility] 2024-03-24 08:15:00 2024-03-24 08:15:00 Outpatient MIKY VIDAL [facility] [id number] [facility] 2023-06-13 00:00:00 2024-03-22 07:49:55 Orders Only Doctor Unassigned, [place] Doctor Unassigned, [place] [facility] 1.2.840.114 350.1.13.10 4.2.7.2.686 [id number] 009 [id number] [facility] 2023-06-13 00:00:00 2024-03-22 07:49:48 Orders Only Doctor Unassigned, [place] Doctor Unassigned, [place] [facility] 1.2.840.114 350.1.13.10 4.2.7.2.686 [id number] 009 [id number] [facility] 2023-06-29 00:00:00 2024-03-22 07:42:02 Orders Only Doctor Unassigned, [place] Doctor Unassigned, [place] [facility] 1.2.840.114 350.1.13.10 4.2.7.2.686 [id number] 009 [id number] [facility] 2023-05-14 00:00:00 2024-03-22 02:26:21 Orders Only Doctor Unassigned, [place] Doctor Unassigned, [place] [facility] 1.2.840.114 350.1.13.10 4.2.7.2.686 [id number] 009 [id number] [facility] 2023-05-14 00:00:00 2024-03-22 02:25:53 Orders Only Doctor Unassigned, [place] Doctor Unassigned, [place] [facility] 1.2.840.114 350.1.13.10 4.2.7.2.686 [id number] 009 [id number] [facility] 2023-05-21 00:00:00 2024-03-22 02:20:43 Orders Only Doctor Unassigned, [place] Doctor Unassigned, [place] [facility] 1.2.840.114 350.1.13.10 4.2.7.2.686 [id number] 009 [id number] [facility] 2024-03-21 00:00:00 2024-03-21 09:47:24 Letter (Out) Nuvia Langston [facility] 1.2840.114 350.1.13.10 4.2.7.2.686 [id number] [facility] 2024-03-21 08:30:00 2024-03-21 09:00:00 Office Visit Nuvia Langston [facility] 1..114 350.1.13.10 4.2.7.2.686 [id number] [facility] 2024-03-21 08:30:00 2024-03-21 08:30:00 Outpatient R TRISHA LANGSTONIE [facility] [id number] [facility] 2024-03-18 00:00:00 2024-03-18 13:37:25 Patient Secure Msg Kian [facility] 1.840.114 350.1.13.10 4.2.7.2.686 [id number] 314 [id number] [facility] 2024-03-17 00:00:00 2024-03-17 15:42:17 Telephone Kian [facility] 1.2840.114 350.1.13.10 4.2.7.2.686 [id number] 314 [id number] [facility] 2024-02-23 00:00:00 2024-03-17 13:49:25 Patient Secure Msg Kian [facility] 1.2840.114 350.1.13.10 4.2.7.2.686 [id number] 314 [id number] [facility] 2024-03-13 00:00:00 2024-03-13 10:47:21 Telephone Kian [facility] 1.2840.114 350.1.13.10 4.2.7.2.686 [id number] 314 [id number] [facility] 2024-03-11 00:00:00 2024-03-11 15:48:23 Telephone Nuvia Langston [facility] 1.2.840.114 350.1.13.10 4.2.7.2.686 [id number] [facility] 2024-03-06 00:00:00 2024-03-07 11:07:19 Telephone Laura Beltran [facility] 1.2.840.114 350.1.13.10 4.2.7.2.686 [id number] 059 [id number] [facility] 2024-03-07 00:00:00 2024-03-07 09:32:48 Pre Visit Outreach Joan Khan April A [facility] 1.2.840.114 350.1.13.10 4.2.7.2.686 [id number] 082 [id number] [facility] 2024-02-14 00:00:00 2024-03-06 09:58:51 Telephone Nuvia Langston [facility] 1.2.840.114 350.1.13.10 4.2.7.2.686 [id number] [facility] 2024-01-17 00:00:00 2024-02-23 18:22:41 Patient Secure MsNuvia Encinas [facility] 1.2.840.114 350.1.13.10 4.2.7.2.686 [id number] 314 [id number] [facility] 2024-02-18 16:45:00 2024-02-18 16:45:00 Outpatient R NUVIA LANGSTON [facility] [id number] [facility] 2024-02-12 00:00:00 2024-02-13 11:41:32 Telephone Kian Nuvia [facility] 1.0.114 350.1.13.10 4.2.7.2.686 [id number] 314 [id number] [facility] 2024-02-12 00:00:00 2024-02-12 11:00:57 Letter (Out) Nuvia Langston [facility] 1..114 350.1.13.10 4.2.7.2.686 [id number] 314 [id number] [facility] 2024-02-12 10:00:00 2024-02-12 10:30:00 Office Visit LangstonNuvia [facility] 1..114 350.1.13.10 4.2.7.2.686 [id number] 314 [id number] [facility] 2024-02-12 10:00:00 2024-02-12 10:00:00 Outpatient R NUVIA LANGSTON [facility] [id number] [facility] 2023-12-25 00:00:00 2024-01-26 18:16:16 Patient Secure Msg Miky Rothman [facility] 1.114 350.1.13.10 4.2.7.2.686 [id number] [facility] 2023-12-17 00:00:00 2024-01-19 18:21:52 Patient Secure Msg Doctor Unassigned, [place] Doctor Unassigned, [place] [facility] 1..114 350.1.13.10 4.2.7.2.686 [id number] 019 [id number] [facility] 2023-12-18 00:00:00 2024-01-19 18:20:38 Patient Secure Msg Nuvia Langston [facility] 1.0.114 350.1.13.10 4.2.7.2.686 [id number] 314 [id number] [facility] 2023-12-28 00:00:00 2024-01-17 10:28:28 Patient Secure g Nuvia Langston [facility] 1.2840.114 350.1.13.10 4.2.7.2.686 [id number] 314 [id number] [facility] 2024-01-15 11:10:00 2024-01-15 11:20:00 Imm/Inj Visit Vaccine, Nuvia Carver [facility] 1.84.114 350.1.13.10 4.2.7.2.686 [id number] 314 [id number] [facility] 2024-01-15 00:00:00 2024-01-15 11:00:17 Letter (Out) KianTrishaie [facility] 1.84.114 350.1.13.10 4.2.7.2.686 [id number] 314 [id number] [facility] 2024-01-15 10:00:00 2024-01-15 10:30:00 Office Visit KianTrishaie [facility] 1.84.114 350.1.13.10 4.2.7.2.686 [id number] 314 [id number] [facility] 2024-01-15 10:00:00 2024-01-15 10:00:00 Outpatient R NUVIA LANGSTON [facility] [id number] [facility] 2023-12-31 00:00:00 2023-12-31 15:18:21 Telephone Kian Nuvia [facility] 1.840.114 350.1.13.10 4.2.7.2.686 [id number] 314 [id number] [facility] 2023-12-27 00:00:00 2023-12-28 08:53:08 Patient Secure g Langston Nuvia [facility] 1.840.114 350.1.13.10 4.2.7.2.686 [id number] 314 [id number] [facility] 2023-12-18 00:00:00 2023-12-27 18:27:22 [facility] 1.2840.114 350.1.13.10 4.2.7.2.686 [id number] 314 [id number] [facility] 2023-12-25 00:00:00 2023-12-25 13:34:36 [facility] 1..114 350.1.13.10 4.2.7.2.686 [id number] 136 [id number] [facility] 2023-12-24 00:00:00 2023-12-25 12:16:42 Telephone Nuvia Langston [facility] 1.840.114 350.1.13.10 4.2.7.2.686 [id number] 314 [id number] [facility] 2023-12-25 08:15:00 2023-12-25 09:31:13 Outpatient R MIKY ROTHMAN [facility] [id number] [facility] 2023-12-25 08:15:00 2023-12-25 09:31:13 Office Visit Miky Rothman [facility] 1..114 350.1.13.10 4.2.7.2.686 [id number] 136 [id number] [facility] 2023-12-21 00:00:00 2023-12-21 15:58:28 Telephone Nuvia Langston [facility] 1..840.114 350.1.13.10 4.2.7.2.686 [id number] 314 [id number] [facility] 2023-12-21 00:00:00 2023-12-21 11:35:01 Telephone Nuvia Langston [facility] 1.2.840.114 350.1.13.10 4.2.7.2.686 [id number] 314 [id number] [facility] 2023-12-20 00:00:00 2023-12-21 11:30:33 Nuvia Torrez [facility] 1.2.840.114 350.1.13.10 4.2.7.2.686 [id number] 314 [id number] [facility] 2023-12-04 00:00:00 2023-12-18 16:36:30 Patient Secure Msg Kian [facility] 1.2.840.114 350.1.13.10 4.2.7.2.686 [id number] 314 [id number] [facility] 2023-12-12 00:00:00 2023-12-14 10:19:05 Pam Langston Nuvia [facility] 1.2840.114 350.1.13.10 4.2.7.2.686 [id number] 314 [id number] [facility] 2023-12-07 11:24:00 2023-12-07 13:03:00 Emergency X JUAN J DUVALL [facility] [id number] [facility] 2023-12-07 11:24:00 2023-12-07 13:03:00 Emergency Juan J Duvall [facility] 1.2.840.114 350.1.13.10 4.2.7.2.686 [id number] [id number] [facility] 2023-12-07 00:00:00 2023-12-07 12:57:14 Pam Langston Nuvia [facility] 1.2.840.114 350.1.13.10 4.2.7.2.686 [id number] 314 [id number] [facility] 2023-11-30 00:00:00 2023-12-04 13:11:17 Patient Secure Msg Langston, [facility] 1.2.840.114 350.1.13.10 4.2.7.2.686 [id number] 314 [id number] [facility] 2023-11-30 00:00:00 2023-12-03 14:36:34 Telephone Kian [facility] 1.2.840.114 350.1.13.10 4.2.7.2.686 [id number] 314 [id number] [facility] 2023-11-05 09:04:00 2023-11-05 13:23:00 Outpatient R JOSE LU GABRIEL [facility] [id number] [facility] 2023-11-05 09:04:00 2023-11-05 13:23:00 Hospital Encounter Jose Lu [facility] 1.2.840.114 350.1.13.10 4.2.7.2.686 [id number] 049 [id number] [facility] 2023-11-05 10:38:00 2023-11-05 11:38:00 Surgery Jose Lu [facility] 1.2.840.114 350.1.13.10 4.2.7.2.686 [id number] [id number] [facility] 2023-10-30 00:00:00 2023-10-31 08:02:23 Telephone Jose Lu [facility] 1.2.840.114 350.1.13.10 4.2.7.2.686 [id number] 072 [id number] [facility] 2023-09-12 00:00:00 2023-10-13 18:18:13 Patient Secure Msg Langston [facility] 1.2.840.114 350.1.13.10 4.2.7.2.686 [id number] [facility] 2023-10-04 16:30:00 2023-10-04 16:45:00 Prep Manager Visit Draw, [facility] Laura Beltran Joycelyn, [facility] 1..840.114 350.1.13.10 4.2.7.2.686 [id number] [facility] 2023-10-04 16:30:00 2023-10-04 16:30:00 Outpatient R LAURA BELTRAN [facility] [id number] [facility] 2023-09-28 14:30:00 2023-09-28 15:00:00 Office Visit Laura Beltran [facility] 1..840.114 350.1.13.10 4.2.7.2.686 [id number] 059 [id number] [facility] 2023-09-28 14:30:00 2023-09-28 14:47:46 Outpatient R LAURA BELTRAN [facility] [id number] [facility] 2023-09-12 00:00:00 2023-09-12 15:57:44 Patient Secure Nuvia Encinas [facility] 1..840.114 350.1.13.10 4.2.7.2.686 [id number] [facility] 2023-09-03 09:45:00 2023-09-03 10:00:00 Prep Manager Visit Draw, [facility] Kian Nuvia [facility] 1..840.114 350.1.13.10 4.2.7.2.686 [id number] [facility] 2023-09-03 09:45:00 2023-09-03 09:45:00 Outpatient R NUVIA LANGSTON [facility] [id number] [facility] 2023-08-29 00:00:00 2023-08-31 14:07:47 Patient Secure Msg Kian [facility] 1..840.114 350.1.13.10 4.2.7.2.686 [id number] 314 [id number] [facility] 2023-08-31 00:00:00 2023-08-31 11:58:16 Letter (Out) Augustin [facility] 1.840.114 350.1.13.10 4.2.7.2.686 [id number] 072 [id number] [facility] 2023-08-31 11:00:00 2023-08-31 11:30:00 Office Visit Augutsin [facility] 1.2.840.114 350.1.13.10 4.2.7.2.686 [id number] 072 [id number] [facility] 2023-08-31 11:00:00 2023-08-31 11:00:00 Outpatient R LUCIA RUFFIN [facility] [id number] [facility] 2023-08-29 00:00:00 2023-08-29 16:22:36 Telephone Kian [facility] 1.840.114 350.1.13.10 4.2.7.2.686 [id number] [facility] 2023-08-23 13:53:39 2023-08-23 23:59:00 Hospital Encounter Kian [facility] 1..840.114 350.1.13.10 4.2.7.2.686 [id number] [facility] 2023-08-23 00:00:00 2023-08-23 13:52:53 Letter (Out) Langston [facility] 1.2.840.114 350.1.13.10 4.2.7.2.686 [id number] 314 [id number] [facility] 2023-08-23 13:00:00 2023-08-23 13:30:00 Office Visit Nuvia Langston [facility] 1.84.114 350.1.13.10 4.2.7.2.686 [id number] [facility] 2023-08-23 13:00:00 2023-08-23 13:00:00 Outpatient R NUVIA LANGSTON [facility] [id number] [facility] 2023-07-11 00:00:00 2023-08-11 18:18:44 Patient Secure Msg Doctor Unassigned, [place] [facility] 1..114 350.1.13.10 4.2.7.2.686 [id number] 020 [id number] [facility] 2023-07-04 00:00:00 2023-08-04 18:17:52 Patient Secure Msg Doctor Unassigned, [place] [facility] 1..114 350.1.13.10 4.2.7.2.686 [id number] 017 [id number] [facility] 2023-08-02 00:00:00 2023-08-03 14:44:02 Patient Secure Msg Nuvia Langston [facility] 1..114 350.1.13.10 4.2.7.2.686 [id number] 314 [id number] [facility] 2023-06-28 00:00:00 2023-07-16 07:56:32 Letter (Out) Macy Cleaning [facility] 1..114 350.1.13.10 4.2.7.2.686 [id number] 027 [id number] [facility] 2023-07-05 00:00:00 2023-07-09 11:19:14 Patient Secure Msg Doctor Unassigned, [place] [facility] 1.0.114 350.1.13.10 4.2.7.2.686 [id number] [facility] 2023-07-05 13:43:58 2023-07-05 23:59:00 Outpatient R NUVIA LANGSTON [facility] [id number] [facility] 2023-07-05 13:43:58 2023-07-05 23:59:00 Hospital Encounter Nuvia Langston [facility] 1.2.840.114 350.1.13.10 4.2.7.2.686 [id number] [id number] [facility] 2023-06-28 14:30:00 2023-06-28 14:55:36 Outpatient KARTHIK HUNTER [facility] [id number] [facility] 2023-06-28 14:30:00 2023-06-28 14:55:36 Office Visit Macy Cleaning Anthony Munoz Gonzalez, Ayezel M [facility] 1.840.114 350.1.13.10 4.2.7.2.686 [id number] 027 [id number] [facility] 2023-06-25 00:00:00 2023-06-25 14:40:13 Letter (Out) [facility] 1.2.840.114 350.1.13.10 4.2.7.2.686 [id number] [facility] 2023-06-25 14:00:00 2023-06-25 14:20:00 Office Visit [facility] 1.2840.114 350.1.13.10 4.2.7.2.686 [id number] [facility] 2023-06-25 14:00:00 2023-06-25 14:00:00 Outpatient R LYN JOHNSON LYN [facility] [id number] [facility] 2023-05-22 00:00:00 2023-06-23 18:05:41 Patient Secure Msg Doctor Unassigned, [place] [facility] 1.2.840.114 350.1.13.10 4.2.7.2.686 [id number] 019 [id number] [facility] 2023-05-23 00:00:00 2023-06-23 18:05:29 [facility] 1.2.840.114 350.1.13.10 4.2.7.2.686 [id number] [facility] 2023-05-23 00:00:00 2023-06-23 18:04:16 Patient Secure Msg Doctor Unassigned, [place] [facility] 1.2840.114 350.1.13.10 4.2.7.2.686 [id number] [id number] [facility] 2023-06-13 00:00:00 2023-06-18 12:54:24 Nuvia Jenkins [facility] 1.0.114 350.1.13.10 4.2.7.2.686 [id number] [facility] 2023-06-14 10:38:55 2023-06-14 23:59:00 Outpatient R [facility] [id number] [facility] 2023-06-14 10:38:55 2023-06-14 23:59:00 [facility] 1.2840.114 350.1.13.10 4.2.7.2.686 [id number] [id number] [facility] 2023-06-12 00:00:00 2023-06-12 13:56:38 Nuvia Torrez [facility] 1.2840.114 350.1.13.10 4.2.7.2.686 [id number] 314 [id number] [facility] 2023-06-08 00:00:00 2023-06-11 08:43:43 Telephone Kian [facility] 1.2.840.114 350.1.13.10 4.2.7.2.686 [id number] 314 [id number] [facility] 2023-06-06 00:00:00 2023-06-06 00:00:00 Telephone Kian [facility] 1.2.840.114 350.1.13.10 4.2.7.2.686 [id number] [facility] 2023-06-05 00:00:00 2023-06-05 00:00:00 Pam Langston [facility] 1.2.840.114 350.1.13.10 4.2.7.2.686 [id number] [facility] 2023-05-30 12:53:18 2023-05-30 23:59:00 Hospital Encounter Magdalena Kapoor [facility] 1.840.114 350.1.13.10 4.2.7.2.686 [id number] [facility] 2023-05-30 00:00:00 2023-05-30 23:59:00 Outpatient R MAGDALENA KAPOOR [facility] [id number] [facility] 2023-05-30 13:30:00 2023-05-30 13:30:00 Outpatient R NUVIA LANGSTON [facility] [id number] [facility] 2023-05-30 00:00:00 2023-05-30 00:00:00 Telephone Magdalena Kapoor [facility] 1..840.114 350.1.13.10 4.2.7.2.686 [id number] [facility] 2023-05-29 00:00:00 2023-05-29 00:00:00 Telephone Laura Beltran [facility] 1.284.114 350.1.13.10 4.2.7.2.686 [id number] [id number] [facility] 2023-05-22 14:00:00 2023-05-22 14:30:00 Office Visit Nuvia Langston [facility] 1.840.114 350.1.13.10 4.2.7.2.686 [id number] [facility] 2023-05-22 14:00:00 2023-05-22 14:00:00 Outpatient R NUVIA LANGSTON [facility] [id number] [facility] 2023-05-22 00:00:00 2023-05-22 00:00:00 [facility] 1.284.114 350.1.13.10 4.2.7.2.686 [id number] 059 [id number] [facility] 2023-05-22 00:00:00 2023-05-22 00:00:00 Letter (Out) Nuvia Langston [facility] 1.2840.114 350.1.13.10 4.2.7.2.686 [id number] 314 [id number] [facility] 2023-05-18 00:00:00 2023-05-18 00:00:00 Telephone Kian Nuvia [facility] 1.2840.114 350.1.13.10 4.2.7.2.686 [id number] 314 [id number] [facility] 2023-05-18 00:00:00 2023-05-18 00:00:00 Telephone Kian Nuvia [facility] 1.2840.114 350.1.13.10 4.2.7.2.686 [id number] 314 [id number] [facility] 2023-05-17 00:00:00 2023-05-17 00:00:00 Patient Secure Msg Doctor Unassigned, [place] [facility] 1.2.840.114 350.1.13.10 4.2.7.2.686 [id number] [facility] 2023-05-09 00:00:00 2023-05-09 00:00:00 Telephone Kian [facility] 1.2.840.114 350.1.13.10 4.2.7.2.686 [id number] 314 [id number] [facility] 2023-05-09 00:00:00 2023-05-09 00:00:00 Telephone Kian [facility] 1..840.114 350.1.13.10 4.2.7.2.686 [id number] 314 [id number] [facility] 2023-05-09 00:00:00 2023-05-09 00:00:00 Telephone [facility] 1.2.840.114 350.1.13.10 4.2.7.2.686 [id number] [facility] 2023-04-30 00:00:00 2023-04-30 00:00:00 Telephone [facility] 1.2.840.114 350.1.13.10 4.2.7.2.686 [id number] 198 [id number] [facility] 2023-04-26 13:25:37 2023-04-26 23:59:00 Outpatient R LAURA BELTRAN [facility] [id number] [facility] 2023-04-26 13:25:37 2023-04-26 23:59:00 Hospital Encounter Laura Beltran [facility] 1.2.840.114 350.1.13.10 4.2.7.2.686 [id number] [facility] 2023-04-26 00:00:00 2023-04-26 00:00:00 Telephone Laura Beltran [facility] 1.2.840.114 350.1.13.10 4.2.7.2.686 [id number] 059 [id number] [facility] 2023-04-26 00:00:00 2023-04-26 00:00:00 [facility] ([facility] 1..840.114 350.1.13.10 4.2.7.2.686 [id number] 059 [id number] [facility] 2023-04-25 14:00:00 2023-04-25 15:29:12 Outpatient R MAGDALENA KAPOOR [facility] [id number] [facility] 2023-04-25 14:00:00 2023-04-25 15:29:12 Office Visit Magdalena Kapoor [facility] 1.840.114 350.1.13.10 4.2.7.2.686 [id number] [facility] 2023-04-25 00:00:00 2023-04-25 00:00:00 Orders Only Doctor Unassigned, [place] [facility] 1.2840.114 350.1.13.10 4.2.7.2.686 [id number] [facility] 2023-04-24 13:09:36 2023-04-24 23:59:00 [facility] [id number] 2023-04-24 13:09:36 2023-04-24 23:59:00 Hospital Encounter Javier Li, Laura [facility] ([facility]) 1.2.840.114 350.1.13.10 4.2.7.2.686 [id number] [facility] 2023-04-18 00:00:00 2023-04-18 00:00:00 Telephone Nuvia Langston [facility] 1.2.840.114 350.1.13.10 4.2.7.2.686 [id number] [facility] 2023-04-18 00:00:00 2023-04-18 00:00:00 Patient Secure Msg Doctor Unassigned, [place] [facility] 1.2840.114 350.1.13.10 4.2.7.2.686 [id number] [facility] 2023-04-12 00:00:00 2023-04-12 00:00:00 Telephone Kian Nuvia [facility] 1.2840.114 350.1.13.10 4.2.7.2.686 [id number] [facility] 2023-04-12 00:00:00 2023-04-12 00:00:00 Telephone Laura Beltran [facility] 1.2840.114 350.1.13.10 4.2.7.2.686 [id number] [facility] 2023-03-30 00:00:00 2023-03-30 00:00:00 Orders Only Doctor Unassigned, [place] [facility] 1.2840.114 350.1.13.10 4.2.7.2.686 [id number] [facility] 2023-03-29 00:00:00 2023-03-29 00:00:00 Refill Kian Nuvia [facility] 1.2840.114 350.1.13.10 4.2.7.2.686 [id number] [facility] 2023-03-26 00:00:00 2023-03-26 00:00:00 Telephone Laura Beltran [facility] 1.2.840.114 350.1.13.10 4.2.7.2.686 [id number] [facility] 2023-03-26 00:00:00 2023-03-26 00:00:00 Patient Secure Msg Doctor Unassigned, [place] [facility] 1.2.840.114 350.1.13.10 4.2.7.2.686 [id number] [facility] 2023-03-23 15:30:00 2023-03-23 15:45:00 Prep Manager Visit Draw, [facility] 1.2.840.114 350.1.13.10 4.2.7.2.686 [id number] [facility] 2023-03-23 15:00:00 2023-03-23 15:09:47 Outpatient R LAURA BELTRAN [facility] [id number] [facility] 2023-03-23 15:00:00 2023-03-23 15:09:47 Office Visit Javier BluntdLaura [facility] 1.2.840.114 350.1.13.10 4.2.7.2.686 [id number] [facility] 2023-03-23 00:00:00 2023-03-23 00:00:00 Letter (Out) Javier Bluntd [facility] MEDICAL OFFICE BUILDING 1.2.840.114 350.1.13.10 4.2.7.2.686 [id number] [facility] 2023-03-20 00:00:00 2023-03-20 00:00:00 Orders Only Doctor Unassigned, [place] [facility] 1.2.840.114 350.1.13.10 4.2.7.2.686 [id number] [facility] 2023-03-19 00:00:00 2023-03-19 00:00:00 Telephone Javier Laura Li [facility] MED[facility] 1.2.840.114 350.1.13.10 4.2.7.2.686 [id number] [facility] 2023-03-16 00:00:00 2023-03-16 00:00:00 Patient Secure Msg Doctor Unassigned, [place] [facility] 1.2.840.114 350.1.13.10 4.2.7.2.686 [id number] [facility] 2023-03-14 00:00:00 2023-03-14 00:00:00 Telephone Nuvia Langston [facility] 1.2.840.114 350.1.13.10 4.2.7.2.686 [id number] [facility] 2023-03-12 00:00:00 2023-03-12 00:00:00 Orders Only Doctor Unassigned, [place] [facility] 1.2.840.114 350.1.13.10 4.2.7.2.686 [id number] [facility] 2023-03-07 00:00:00 2023-03-07 00:00:00 Patient Secure Msg Doctor Unassigned, [place] [facility] 1.2.840.114 350.1.13.10 4.2.7.2.686 [id number] [facility] 2023-03-07 00:00:00 2023-03-07 00:00:00 Patient Secure Msg Doctor Unassigned, [place] [facility] 1.2.840.114 350.1.13.10 4.2.7.2.686 [id number] [facility] 2023-03-01 00:00:00 2023-03-01 00:00:00 Telephone Kian [facility] 1.2840.114 350.1.13.10 4.2.7.2.686 [id number] [facility] 2023-03-01 00:00:00 2023-03-01 00:00:00 Telephone Kian [facility] 1.2840.114 350.1.13.10 4.2.7.2.686 [id number] [facility] 2023-02-27 13:30:00 2023-02-27 14:00:00 Office Visit Kian [facility] 1..114 350.1.13.10 4.2.7.2.686 [id number] [facility] 2023-02-27 13:30:00 2023-02-27 13:30:00 Outpatient R KIAN NUVIA [facility] [id number] [facility] 2023-02-27 00:00:00 2023-02-27 00:00:00 Letter (Out) [facility]ian [facility] 1..114 350.1.13.10 4.2.7.2.686 [id number] [facility] 2023-02-26 00:00:00 2023-02-26 00:00:00 Orders Only Doctor Unassigned, [place] [facility] 1..114 350.1.13.10 4.2.7.2.686 [id number] [facility] 2023-02-16 00:00:00 2023-02-16 00:00:00 Patient Secure Msg Doctor Unassigned, [place] [facility] 1.2.840.114 350.1.13.10 4.2.7.2.686 [id number] [facility] 2023-02-15 00:00:00 2023-02-15 00:00:00 Telephone Kian [facility] 1.2.840.114 350.1.13.10 4.2.7.2.686 [id number] [facility] 2023-02-14 00:00:00 2023-02-14 00:00:00 Telephone Kian [facility] 1.2.840.114 350.1.13.10 4.2.7.2.686 [id number] [facility] 2023-02-13 15:00:00 2023-02-13 15:30:00 Office Visit Kian [facility] 1.2.840.114 350.1.13.10 4.2.7.2.686 [id number] [facility] 2023-02-13 15:00:00 2023-02-13 15:00:00 Outpatient R NUVIA LANGSTON [facility] [id number] [facility] 2023-02-13 00:00:00 2023-02-13 00:00:00 Letter (Out) Kian [facility] 1.2840.114 350.1.13.10 4.2.7.2.686 [id number] [facility] 2023-02-07 00:00:00 2023-02-07 00:00:00 Orders Only Doctor Unassigned, [place] [facility] 1.2.840.114 350.1.13.10 4.2.7.2.686 [id number] [facility] 2023-01-26 00:00:00 2023-01-26 00:00:00 Orders Only Doctor Unassigned, [place] [facility] 1.2.840.114 350.1.13.10 4.2.7.2.686 [id number] [facility] 2022-11-27 00:00:00 2022-11-27 00:00:00 Orders Only Doctor Unassigned, [place] [facility] 1.2.840.114 350.1.13.10 4.2.7.2.686 [id number] [facility] 2022-10-06 00:00:00 2022-10-06 00:00:00 Telephone Claudette Charles [facility] 1.2.840.114 350.1.13.10 4.2.7.2.686 [id number] [facility] 2022-10-03 10:30:00 2022-10-03 11:00:00 Office Visit Claudette Charles [facility] 1.2.840.114 350.1.13.10 4.2.7.2.686 [id number] [facility] 2022-10-03 10:30:00 2022-10-03 10:30:00 Outpatient R CLAUDETTE CHARLES STRAHIL [facility] [id number] [facility] 2022-07-31 20:00:00 2022-07-31 22:30:00 Prep Manager Visit 1, [facility] Claudette Charles [facility] 1.2.840.114 350.1.13.10 4.2.7.2.686 [id number] [facility] 2022-07-31 20:00:00 2022-07-31 20:00:00 Outpatient R CLAUDETTE CHARLES STRAHIL [facility] [id number] [facility] 2022-07-31 00:00:00 2022-07-31 00:00:00 Orders Only Doctor Unassigned, [place] [facility] 1.2840.114 350.1.13.10 4.2.7.2.686 [id number] [facility] 2022-05-17 15:30:00 2022-05-17 16:03:46 Outpatient R CLAUDETTE CHARLES STRAWAYumiko [facility] [id number] [facility] 2022-05-17 15:30:00 2022-05-17 16:00:00 Office Visit Claudette Charles [facility] 1.2840.114 350.1.13.10 4.2.7.2.686 [id number] [facility] 2022-05-17 00:00:00 2022-05-17 00:00:00 Orders Only Doctor Unassigned, [place] [facility] 1.2840.114 350.1.13.10 4.2.7.2.686 [id number] [facility] 2022-03-29 15:00:00 2022-03-29 15:00:00 [facility] [id number] [facility] 2022-02-15 00:00:00 2022-02-15 00:00:00 Orders Only Doctor Unassigned, [place] [facility] 1.2840.114 350.1.13.10 4.2.7.2.686 [id number] [facility] 2021-03-16 00:00:00 2021-03-16 00:00:00 Orders Only Doctor Unassigned, [place] [facility] 1.2840.114 350.1.13.10 4.2.7.2.686 [id number] [facility] 2021-01-10 10:30:00 2021-01-10 16:53:25 Outpatient R EDEN HORNE [facility] [id number] [facility] 2021-01-10 10:30:00 2021-01-10 16:53:25 Outpatient R EDEN HORNE [facility] [id number] [facility] 2021-01-10 10:24:17 2021-01-10 16:53:25 Office Visit Eden Horne [facility] 1..840.114 350.1.13.10 4.2.7.2.686 [id number] [facility] 2021-01-10 10:30:00 2021-01-10 10:30:00 Outpatient R EDEN HORNE [facility] [id number] [facility] 2021-01-10 00:00:00 2021-01-10 00:00:00 Orders Only Doctor Unassigned, [place] [facility] 1..840.114 350.1.13.10 4.2.7.2.686 [id number] [facility] 2020-12-23 14:15:00 2020-12-23 16:30:15 Outpatient R NAMRATA CHAVEZ [facility] [id number] [facility] 2020-12-23 14:15:00 2020-12-23 14:15:00 Outpatient R NAMRATA CHAVEZ [facility] [id number] [facility] 2020-12-23 13:56:33 2020-12-23 14:11:33 Office Visit Namrata Chavez [facility] 1.2.840.114 350.1.13.10 4.2.7.2.686 [id number] [facility] Results Test Description Test Time Test Comments Results Result Co mments Source [facility] [id number] 20:13:53EXAM: MRI LEFT SHOULDER COMPARISON: None available HISTORY: chronic shoulder pain TECHNIQUE AND FINDINGS: Multiplanar multiweighted MR imaging of the left ?shoulder was performed. BONE AND JOINT:The labrum and biceps labral anchor are intact. Subcortical cystic changesare noted at the lateral margin of the humeral head adjacent to the greatertuberosity. The glenohumeral chondral surfaces are unremarkable. Acromionmorphology is type III. LIGAMENTS AND TENDONS:Moderate volume fluid distention of the biceps tendon sheath is noteddistally. Intermediate T2 signal with thickening is seen at thesubsc apularis tendon superior fibers. Moderate interstitial tearing is seenat the supraspinatus tendon humeral insertional fibers with articularsurface fraying. ?The remaining rotator cuff tendons are unremarkable. Theglenohumeral ligaments are within normal limits. SOFT TISSUES:No muscle atrophy or edema is appreciated. Fluid is seen within thesubacromial/subdeltoid and subcoracoid bursa.[facility] Center[facility]ERRAL- REQUEST/[id number] 13:30:19Ordered by an unspecified provider.[facility] POCT Molecular [id number] 19:25:55* Test Item Value Reference Range Interpretation Comme nts POCT Molecular FluA (test co de = 78517-0) Negative Negative POCT Molecular FluB (test co de = 70344-8) Negative Negative Lab Interpretation (test cod e = 29407-1) Normal [facility] Molecular [id number] 19:25:55* Test Item Value Reference Range Interpretation Comme nts POCT Molecular FluA (test co de = 09090-1) Negative Negative POCT Molecular FluB (test co de = 20441-4) Negative Negative Lab Interpretation (test cod e = 45998-2) Normal [facility] SARS-COV-2 ANTIGEN (BINAX NOW)2023-06-25 19:23:00* Test Item Value Reference Range Interpretation Comme [facility] POCT SARS-COV-2 ANTIGEN (meli t code = 19763-5) Not Detected Not Detected On board controls acceptable with C Line (test code = 3574) Yes [facility] SARS-COV-2 ANTIGEN (BINAX NOW)2023-06-25 19:23:00* Test Item Value Reference Range Interpretation Comme nts POCT SARS-COV-2 ANTIGEN (meli t code = 24583-9) Not Detected Not Detected On board controls acceptable with C Line (test code = 3574) Yes [facility] MOLECULAR [id number] 19:20:26* Test Item Value Reference Range Interpretation Comme nts POCT Molecular Strep (test c ode = 50565-4) Negative Negative Lab Interpretation (test cod e = 60329-8) Normal [facility] MOLECULAR [id number] 19:20:26* Test Item Value Reference Range Interpretation Comme nts POCT Molecular Strep (test c ode = 37904-8) Negative Negative Lab Interpretation (test cod e = 95272-6) Normal [facility]/[id number] 19:35:41 Ordered by an unspecified provider.[facility]- REQUEST/[id number] 19:20:08Ordered by an unspecified provider.[facility] CenterREF[facility]- REQUEST/[id number] 16:29:45Ordered by an unspecified provider.[facility]- REQUEST/[id number] 17:03:40Ordered by an unspecified provider.[facility]- REQUEST/[id number] 17:03:39Ordered by an unspecified provider.[facility] History and Physical Notes Date/Time Note Provider Source 2023-11-05 10:56:52 Endoscopy H & P Age: [age] year old Sex: male ASA Class: II Indication: nausea, bloating, dysphagia, history of colon polyps Jesus Alberto Hart is a 62 year old male with PMH as below who was seen in GI clinic by Lucia Ruffin for the above complaints. He reports chronic intermittent bloating/dyspepsia after meals as well as intermittent esophageal dysphagia. No prior EGD. He reports a history of colon polyps on multiple prior colonoscopies through the [facility], last was 3 years ago. No family history of esophageal, gastric, or colon cancer. No blood thinner use. Histories: Past Medical History: Diagnosis Date Asthma BPH (benign prostatic hyperplasia) Dry eye syndrome Hiatal hernia Hyperlipidemia Hypertension Narcolepsy Personal history of colonic polyps Pseudogout of hand Syncope 2015 x 2 Tear film insufficiency 12/09/2021 Refer to ophthalmology--signed by Dr. Neves FH: no family history of gastric, esophageal, or colon cancer SurgH: no prior abdominal surgeries Current Facility-Administered Medications Medication Dose Route Frequency Last Rate Last Admin lactated ringers IV infusion 1,000 mL 1,000 mL IV Infusion ONCE No Known Allergies Social History Socioeconomic History Marital status: Single Tobacco Use Smoking status: Never Smokeless tobacco: Never Physical Exam: Mental Status: alert, oriented x3 Abdomen: bowel sounds present Spleen Tip: non-palpable Hepatomegaly: no Mass: not present Tenderness: no Impression and Plan: Jesus Alberto Hart is a 62 year old male with PMH as above who presents for nausea, bloating, dyspepsia, dysphagia, and a history of colon polyps. Will proceed with EGD and surveillance colonoscopy. Benefits, risks, alternatives, and likelihood of achieving patient's goals of care discussed. Risks discussed including but not limited to aspiration, infection, bleeding, injury to the GI tract or surrounding vessels/structures, perforation, missed polyps/lesions, failure to obtain a diagnosis, failure to complete the procedure, cardiovascular complications such as PR, stroke, arrhythmia, and . Informed consent obtained/verified. Education provided to the patient about the procedure. Jose Lu MD Office Services Manager of Internal Medicine Division of Gastroenterology and Hepatology [facility] Notes Date/Time Note Provider Source 2024-03-17 15:41:41 Forms received and confirmed faxed via Canvas. Mejia [facility] 2024-03-17 14:43:01 Referral to [place] for cardiology has been completed with office visit and results. Gave to PSS to fax to [phone]. PSS please Fax forms. Calin Cage MA 03/17/2024 2:44 PM [facility] 2024-03-13 10:44:09 Called listed number which directed me to the main insulation board coater operator; transferred to continuity of care; been on hold for 45 min. Unable to get through to speak with a brewery representative. Will call back. Spoke with a brewery representative last week and she was able to confirm patient's upcoming visit on 03/21/24. Referral has been attached and brewery representative states she made note of upcoming visit. Mejia [facility] 2024-03-13 10:02:54 Jesus Alberto Hart is a 63 year old male [facility] with the [facility] calling to verify the patients visits. Please contact [phone] Moses [facility] 2024-03-12 13:40:04 01:43 pm contact ME at number [facility] department Psychiatry- denied Reason for denial- clinicals reviewed from August 24 2023, no labs provided - Caroline reports there are not clinicals from December until February, she is unsure what labs they are looking for, she can reach out to caseworker On phone for 25 minutes and then disconnected. IVÁN: please refax the request for service for psychiatry and psychology, please including clinical notes from 01/15/2024. Please include labs done in 2023. Please ensure the physical therapy notes are sent to ME and documented. Please call ME and find out what labs are needed for the CT requested. I requested a CT of lungs due to lung nodules without contrast. Patient mentions CT of knee below but that was not ordered. RFS for cardiology completed. Please fax and include labs from 2023. RFS for cardiology given to MA. [facility] 2024-03-11 15:45:56 Images from the original note were not included. Faxed received for approved referral for medical care visits. Referral has been created and attached to patients future visit. Mejia [facility] 2024-03-11 15:14:57 Please assist. Karmen Ventura RN [facility] Karmen Ventura RN [facility] 2024-03-11 11:44:30 Linda with [facility] called to see if we have received this form for authorization. Linda said she will call the pt to let him know he can make an appt with Nuvia Langston. Please advise. Bailey [facility] 2024-03-11 09:20:45 VA form has been done by provider and received by Calin and faxed to VA at [phone] forms have been given to PSS carly to place in folder. Calin Cage MA 03/11/2024 9:22 AM [facility] 2024-03-07 10:26:30 Called pt. Pt informed that forms will be signed by Dr. Javier Li on Sunday when she is back in clinic. Pt states that he lost the fax number to send the forms to. Pt gave me the number to call ([phone]) to get the specialty fax number. Called number provided by patient. Specialty fax number is [phone]. Called pt. Pt informed that fax number was received and fax number given to pt for his records. Saravia RN [facility] 2024-03-06 11:43:46 Jesus Alberto Hart is a 63 year old male Pt calling states, the [facility] is requesting a request for services for along with supporting documents/ records. Pt says the more documents the better. Please advise [phone] (home) Wilson [facility] 2024-03-06 09:52:25 Forms picked up and faxed back via right fax and fax machine stored in hart folder Weber [facility] 2024-03-05 17:56:06 Signed and placed in green folder to fax to VA. [facility] 2024-03-05 15:20:19 Access Center: [facility] Open Encounter Maintenance This is being sent to you as part of [facility] Chart Maintenance. The encounter has been open longer than 72 hours and has no documentation attached. Please review and close encounter. Pa RN [facility] 2024-02-18 10:37:06 According to this request, it looks like I am referring to myself for allergic rhinitis and major depressive disorder. Please clarify. On 02/11/2023, I ordered at CT scan of lungs. Is this what this is supposed to be in reference to? Thank you. [facility] 2024-02-15 09:34:30 NEAL. Karmen Ventura, HAYLIE [facility] Karmen Ventura RN [facility] 2024-02-14 16:45:26 VA form placed in red folder. Marquez [facility] 2024-02-13 11:38:30 Reviewed letter from primary care provider from [facility]. The following medical conditions were noted: TBI with memory loss HARMAN Chronic back pain and multi-joint pain due to OA HTN Polycythemia vera CKD stage 3 Multiple lung nodules Hypercholesterolemia BPH Chronic anxiety Will addend previous encounter, order CT scan of lungs to follow up on lung nodules and notify patient. [facility] 2024-02-12 11:11:30 Patient presented in clinic for appt and dropped off medical records from [facility] Conference. Records scanned to be uploaded to patient's chart and placed in providers red folder for review. Mejia [facility] 2024-02-12 10:00:00 Addended by: NUVIA LANGSTON on: 02/13/2024 11:48 AM Modules accepted: Orders [facility] 2024-01-17 11:06:34 Routing to provider Tamayo RN [facility] 2023-12-31 15:13:21 Spoke to pt he was returning a message that was placed on Sunday to let him know that we have faxed all the forms to the [facility]. [facility] 2023-12-31 13:43:18 Patient is requesting a call from the clinic in regards to VA Forms Whiting [facility] 2023-12-28 14:18:41 Patient is calling asking for the nurse to call him regarding his paperwork [facility] Ruth Conroy [facility] 2023-12-28 10:05:27 Pt is calling with Allison from the [place] conference in. Allison needs the pts referral for oncology to be re faxed to her. PH#[phone] FX#[phone] [facility] Deandra Shelby [facility] 2023-12-25 13:34:05 Spoke to [facility] Pharmacy and okay to use Ocusoft instead of Systane for lid hygiene. [facility] 2023-12-25 13:00:[address] Chandra Matias 12/25/2023 1:00 PM [facility] Eddie Matias [facility] 2023-12-25 11:46:18 Jesus Alberto Hart is a 63 year old male Shantel from [facility] is calling stating they do not carry the brand of prescription. Asking to change to Ocusoft. Please advise eyelid cleanser combination 9 (SYSTANE LID WIPES) Towl [facility] [place] [place] - [address] [facility] [address] [facility] [id number] [place] [facility] 2023-12-24 15:06:24 Jesus Alberto Hart is a 63 year old male Patient is calling requesting to be connected with a nurse/"quill worker" at Nuvia Langston's office to discuss paperwork being sent and received from the [place]. Patient was connected with the office during the call. Watkins [facility] 2023-12-21 15:58:04 Order faxed to new fax number [facility] 2023-12-21 12:22:24 Jesus Alberto Hart is a 63 year old male calling stating ME had not received faxes and also wants to add the fax #[phone] to the others and fax to all. Patient can be reached at [phone] Hale [facility] 2023-12-21 11:29:45 Referral faxed again to [phone] and [phone] patient notified. Weber [facility] 2023-12-21 11:20:41 Spoke to to let him know that the referral for both his concerns were sent on 12/11/2023. Spoke to the va nurse as well. The referral has been faxed again 12/21/2023 and was placed with ARPIT Carroll to refax if needed. Calin Cage MA 12/21/2023 11:34 AM [facility] 2023-12-20 11:13:37 Has the referral to oncology been faxed? Karmen Ventura, RN [facility]PART[facility] Karmen Ventura RN [facility] 2023-12-20 11:04:44 I replied to his other message on this topic Frye MA [facility] 2023-12-20 10:48:02 Pt requesting to speak to Calin in the clinic, needs confirmation of whether or not his referral for radiation therapy was sent out to the [facility] as he has not heard anything about it. Please F/u andreia Diez [facility] 2023-12-14 10:14:49 Silvia from the [facility] called back and stated that the wrong clinical notes were sent they did not want the ER aftervisit . Refaxed the clinical notes from the ER provider to Fax number [phone]. Calin Cage MA 12/14/2023 10:18 AM [facility] 2023-12-14 08:55:16 Contacted the [facility] at [phone] spoke to Transferred to ni and he stated that the clinicals have not been received, all information have been faxed and emailed total of 15 pages. Ni is documenting that we have sent in all information. Ni stated that they will contacting the office to let us know what else they are needing. Calin Cage MA 12/14/2023 9:10 AM [facility] 2023-12-13 15:58:43 Attempted to contact ME at [phone] was on hold for a long time was not able to speak to anyone. Will try at a later time. Calin Cage MA 12/13/2023 3:59 PM [facility] 2023-12-13 13:09:53 Jesus Alberto Hart is a 63 year old male [place] is requesting to speak with a nurse. They have received forms that were not filled out completely and they are also needing to discuss the correct fax number. [facility] Lyn Lee [facility] 2023-12-13 08:24:13 Contacted Dada at [phone] to discuss the form that is needed. He stated that he will call me back. Waiting on a call. Spoke to dada at the [place] opthalmology department and he provided the fax and email to send the forms to. He stated that it will take time for the RFS team to receive the forms and have them completed. Faxed and emailed forms 12/13/2023. Email [email or web address] [facility] 2023-12-12 14:57:56 Please call Dada ([phone] ) and discuss the forms. [facility] 2023-12-12 12:28:29 Jesus Alberto Hart is a 63 year old male VA is stating the forms they received were not completely filled out. Pt is requesting to speak with a nurse. Please see encounter from 12.07.23 [facility] 2023-12-12 12:11:34 Calin, Can you confirm which number you faxed the referral to and the time and update Mr. Hart? Thank you. [facility] 2023-12-11 15:12:43 Addended by: NUVIA LANGSTON on: 12/11/2023 03:12 PM Modules accepted: Orders [facility] 2023-12-11 15:11:28 Form for ophthalmology referral completed and sent to Calin MINOR. Referral for palmar contracture to radiation oncology placed. [facility] 2023-12-11 13:43:36 Form placed in PCP red folder. [facility] Jeanna Alves [facility] 2023-12-10 14:08:14 I am not familiar with this pt This needs to be filled out by PCP Thanks ls E [facility] 2023-12-10 13:39:49 Images from the original note were not included. Request for service form not completed patient has to reschedule from today's appointment he is scheduled for tomorrow. Since provider is out we are needing for MD to complete form for stat referral Weber [facility] 2023-12-07 12:52:46 Patient seen in ED today and needs referral to ophthalmology for visual disturbances. SAL contacted me to place referral as his PCP. Referral placed. [facility] 2023-12-07 11:53:51 Patient received from triage. Jesus Alberto Hart is a 63 year old male presenting to the ED from home with CC of DUFFY and visual disturbances. Patient reports he saw bright lights last night which resolved, but then this morning noticed a green dot in his field of vision that was most noticeable when looking at the numbers on the clock. On arrival to ED patient is ambulatory with strong and steady gait, A&Ox4, respirations even and unlabored on RA, answering all questions and following commands appropriately. Priscilla Roca RN [facility] 2023-12-07 11:48:34 Patient moved on tracker to edmondson B-1, but remains in triage 2 with provider at this time. Agata provided to SAL Duvall for eye assessment. [facility] 2023-12-07 11:19:46 Jesus Alberto Hart is a 63 year old male is a/o x 4 came for he noted blue flushing lights in his eye, and this morning he woke up and he looked at his clock and middle color which was normally white but when he looked at it it was green, also have headache. Megha Shah RN [facility] 2023-12-07 11:17:33 Pt wants to use the restroom first before triaged [facility] 2023-12-05 13:11:21 Form completed and signed. Requesting provider Dr. Kapoor. MA: please confirm with [facility] if ordering provider completes the request. Referral placed to hand specialist who then ordered consult from radiation oncology. [facility] 2023-12-03 14:35:19 Pt will be coming today to fill out medical release form. Joe Jain [facility] 2023-12-03 12:48:07 I need to get records from his hand specialist so we can send those records with the request for oncology. Please assist with getting records from hand specialist. [facility] 2023-11-30 13:01:[address] referral? Karmen Ventura RN Karmen Ventura RN [facility] 2023-11-30 11:35:24 Patient is requesting a referral to: Dept: oncology Reason for referral: growth on hand Duration of problem: on going Internal / External referral: internal Name of provider / location patient requesting: [facility] Phone number: na Fax number: na Appt already scheduled?: no If yes, date of appt.: na Khoa Ruth [facility] 2023-11-02 09:08:44 Patient contacted for pre op phone call. Patient given procedural prep instructions, NPO status/timing for procedure, & medication instructions. Patient verbalized understanding of instructions. Discussed with patient they will need a responsible adult, 18 years old or older, to provide transportation on the day of procedure. Patient also informed that they will be contacted the day before their procedure with arrival time. Pre op call complete. Patient given 0945 arrival time. NKT Laura Williamson RN [facility] 2023-11-01 13:43:48 Preop call attempted, left voicemail. Patient instructed to call back with call back number provided. [employer] msg sent with bowel prep instructions. T [facility] 2023-10-31 08:01:18 Return call to patient. Informed patient recommendation should not attend Pt on day of procedure. Patient verbalized understanding and agreed with plan of care. Alma Moreno RN [facility] 2023-10-30 16:07:38 Jesus Alberto Travis Hart Pt requesting for his surgery time slot be sometime in the afternoon due to him having physical therapy on the same day 11/04. Please advise. [phone] (home) Flor Simmons [facility] 2023-10-30 10:56:24 Preop call attempted, left voicemail. Patient instructed to call back with call back number provided. T [facility] 2023-10-04 16:30:00 Images from the original note were not included. Venipuncture collection performed by clean technique on the left anticubitus. Total of 1 attempts were made. Slight pressure and a bandage/dressing were applied to the site(s). The patient experienced no complications. The following specimens were processed according to instructions and sent to [facility] laboratories per lab order on 10/04/2023: LT BLUE SST 2 RED LAV PPT DK GREEN (LiHep) DK GREEN (SodH) LANGSTON DK BLUE (K2) DK BLUE (S) ACD Blood Culture NIPT/NTD T [facility] 2023-09-03 09:45:00 Lab results confirmed faxed via [employer]. T Eugenia Meija [facility] 2023-09-03 09:45:00 HgA1c within normal limits. Please fax results to the [facility] at the following number: It is for his referral to orthopedics surgery regarding his shoulder. T [facility] 2023-09-03 09:45:00 Images from the original note were not included. Venipuncture collection performed by clean technique on the right forearm(s). Total of 1 attempts were made. Slight pressure and a bandage/dressing were applied to the site(s). The patient experienced no complications. The following specimens were processed according to instructions and sent to [facility] laboratories per lab order on 09/03/2023: LT BLUE SST RED LAV 1 PPT DK GREEN (LiHep) DK GREEN (SodH) LANGSTON DK BLUE (K2) DK BLUE (S) ACD Blood Culture NIPT/NTD [facility] 2023-08-29 15:41:07 Request for orthopedic surgeon was denied. Spoke with [facility] center attendant 08/29/2023 03:37 CLARK Causey with [facility] returned call. Discussed orthopedic referral denial. She states patient needs x-ray of left shoulder. She has ordered an x-ray of shoulder. Patient must have done with [facility]. He can have done by walking in to the [facility] in [place] or he can have done in [place] but must schedule appointment. She has ordered this. She states patient also needs HgA1c or blood sugar done with in 3 months. This must be done before seeing orthopedic in case steroid injections are done. Once both of these are done and she has received the information, patient will need to see an online merchandising specialist at the [facility]. This message was relayed to patient. He will have x-ray and blood work done. [facility] 2023-08-29 14:28:32 Images from the original note were not included. [facility] Jeanna Alves [facility] 2023-08-23 13:00:00 Addended by: NUVIA LANGSTON on: 08/29/2023 10:22 AM Modules accepted: Level of Service [facility] 2023-07-05 14:15:00 Tearing of the supraspinatus tendon. Mild subscapularis tendinopathy. Biceps tenosynovitis. A type III acromion, also known as a hooked acromion (T3A), is a risk factor for shoulder impingement syndrome. It's characterized by a hooked shape that curves over the rotator cuff, which can cause bony encroachment on the soft tissues of the subacromial space. This can lead to injury and possible tearing of the rotator cuff, as well as pain and inflammation. Bursitis is inflammation of a bursa, a fluid-filled sac that cushions and reduces friction between the body's tissues. https://orthoinfo.aaos.org/e n/diseases--conditions/shoul evl-cfhc-emc-common-shoulder -problems/ Several causes for pain contributing to shoulder problems. Recommend follow up with online merchandising specialist. Please follow up in clinic to discuss. T [facility] 2023-06-25 14:43:47 Associated Problem(s): Acute recurrent maxillary sinusitis Acute, exacerbated. Symptoms began 9-10 days ago. POCT Flu, Strep, and COVID test obtained. Flu, Strep, and COVID test negative. Initiate Doxycyline 100 mg BID for 7 days. Start OTC antihistamine daily. Start Flonase 2 sprays intranasally daily. If symptoms worsen or continues to develop sinus infection, will need to refer to ENT. Tylenol/Ibuprofen as needed for fever/headache/body aches. Continue oral hydration by drinking plenty of fluids. Monitor your symptoms. If you have an emergency warning sign like trouble breathing seek emergency medical attention. Follow-up if symptoms worsen or do not improve. T [facility] 2023-06-18 11:25:58 Requested Prescriptions Pending Prescriptions Disp Refills albuterol 90 mcg/actuation inhaler [Pharmacy Med Name: ALBUTEROL HFA INH (200 PUFFS) 8.5GM] 51 g Sig: INHALE 2 PUFFS EVERY 4 TO 6 HOURS NEEDED Pulmonology & Allergy: Beta Agonists and Anti-muscarinics Failed - 06/13/2023 10:48 AM Failed - Manual Review: If patient not on inhaled steroid and using bronchodilator more than twice weekly for more than 4 weeks or is having a night cough patient should be seen immediately. Failed - Manual Review: Staff refilling for allergy - 1 month supply only unless insurance requires a 3 month supply, then 3 month supply approved. Passed - Valid encounter within last 12 months Recent Visits Date Type Provider Dept 05/22/23 Office Visit Nuvia Langston, WOOD POLE TREATER [facility] 02/27/23 Office Visit Nuvia Langston, WOOD POLE TREATER [facility] 02/13/23 Office Visit Nuvia Langston, WOOD POLE TREATER [facility] Showing recent visits within past 365 days and meeting all other requirements Future Appointments Date Type Provider Dept 06/28/23 Appointment Nuvia Langston, WOOD POLE TREATER [facility] 08/23/23 Appointment Nuvia Langston, WOOD POLE TREATER [facility] Showing future appointments within next 365 days and meeting all other requirements Please advise. Sophia Rothman LVN [facility] 2023-06-12 13:57:27 Spoke to Allison with [facility] and went over what is needed. Faxed all forms to [phone]. Calin Cage MA 06/12/2023 1:58 PM [facility] 2023-06-12 13:53:30 [place] and she walked me through the correct forms and how they are suppose to be completed. Corrected everything and sent 3 different faxes to ensure they all get to the [facility] complete. Faxed all forms to [phone] as was instructed to do. All faxes went through successfully. Calin Cage MA 06/12/2023 1:56 PM [facility] 2023-06-12 13:08:36 Copied from [facility] #[id number]. Topic: Clinical - Referral >> June 12, 2023 1:08 PM Patient Funeral Pre Arrangement Counselor wrote: Allison with [facility] wants to speak with whoever is filling out the Request for service forms. Electronically signed by Pilar Johnson 06/12/2023 1:08 PM CDT Pilar Johnson [facility] 2023-06-11 08:42:18 Documents confirmed faxed 06/05/2023 Eugenia Mejia [facility] 2023-06-08 16:04:08 Jesus Alberto Hart is a 62 year old male Incoming call from the patient requesting his referral request for Dermatology, Gastro, & for MRI to be refaxed to the VA due to the VA not receiving all the documentation. He also stated the VA can not submit the referrals without all the documentation. The patient stated they have the last 10 pages of each referral be refaxed. He stated they do not have clinical notes. Maite Eugene [facility] 2023-06-06 13:54:17 Images from the original note were not included. Called and spoke with Char for confirmation. Char states she she doesn't see form yet. She states she's not saying they haven't received it, but she is saying the confirmed completed pages have not been uploaded yet. Eugenia Mejia [facility] 2023-06-06 13:44:12 Please contact [facility] and confirm that everything has been received. Thank you. The nurses contact info at the [place]: [phone] [facility] nurse [facility] 2023-06-06 10:04:21 Images from the original note were not included. Referral confirmed faxed (21 pgs) via rightfax. Eugenia Mejia [facility] 2023-06-06 08:51:08 Copied from [facility] #[id number]. Topic: Clinical - Referral >> June 06, 2023 8:49 AM Patient Funeral Pre Arrangement Counselor wrote: Tram with [facility] calling to have referral that were faxed yesterday re faxed. She says they only got a partial fax [phone] Khoa Ruth [facility] 2023-06-05 15:01:13 I recommended to stop the baby aspirin as per my note in 03/2023 given hx of GERD and GI issues. CoQ10 is usually given to decrease the muscle aches caused by statins (a very well known SE). No CI and no need to stop it. IM-CARDIOVASCULAR DISEASE STAFF [facility] 2023-06-05 14:08:59 Images from the original note were not included. Per pt via [email or web address] message, Susana Saravia RN [facility] 2023-06-05 13:35:15 Called ans spoke with pt. Informed him all referrals will be faxed again. Pt confirmed fax number to send it to. All referrals have been faxed. Jeanna Alves [facility] 2023-06-05 12:12:14 Copied from [facility] #[id number]. Topic: Clinical - Referral >> Jun 05, 2023 12:10 PM Patient Funeral Pre Arrangement Counselor wrote: Pt called following up on request. He is requesting to speak with someone from clinic in regards to referral. He is needing this to be completed ANDREIA. Please fax referral to [phone] Incorrect fax number is [phone] Keli Bagley [facility] 2023-06-05 11:21:25 Jesus Alberto Hart is a 62 year old male Tram with [facility], relays per pt they were supposed to receive request for service/referral from 05/29 visit. They have not received anything and are following up. Mentions she spoke with the referral dept, but they stated she needed to contact PCP. PH :[phone] Connie Sharp [facility] 2023-06-05 08:19:26 Please contact patient and go over with him. [facility] 2023-05-30 18:38:10 Forms completed and given to IVÁN Layton on the date of patient's visit on 05/22/2023. Will forward message to IVÁN. T [facility] 2023-05-30 13:22:37 Request for services from [facility] form placed in providers red folder for review. (For pt visit on 05/22/23) Eugenia Mejia [facility] 2023-05-30 12:51:31 X-ray order has been placed Magdalena Kapoor MD, FAAOS Board Certified Orthopedic Surgery Subspecialty Certified in Hand Surgery. [place], Department of Orthopedic Surgery and Rehabilitation. [facility] 2023-05-30 12:37:[address] Kapoor of need for xray order. Plan to instruct patient to go to main radiology. he does not need an appointment to do so. Patient can sign a release once there to request images be sent to the [facility] Vicky Granado RN [facility] 2023-05-30 11:37:01 It looks like we don't have a recent X-ray of his hands. He will have to come in for one. He does not need an appointment with me for that. Vicky, can you find out what the best way is for that to happen and subsequently the read getting to the VA? jf [facility] 2023-05-30 09:21:20 Jesus Alberto Hart is a 62 year old male Incoming call from the patient stating he needs the following from the VA. The VA can not authorize the radiation treatment until the VA receives a Plain Film. The are needing a recent x-ray of the hand. Maite Eugene [facility] 2023-05-29 15:26:10 Images from the original note were not included. Per Erica Spaulding message sent to pt. NKT Susana Saravia RN [facility] 2023-05-22 09:55:08 Today's Visits Date Type Provider Dept 05/22/23 Appointment Nuvia Langston FNP [facility] FY - Nuvia HUANG Gloria Alvarez RN [facility] 2023-05-21 08:56:17 Lo is out of office today. Attempted to call Manisha back, and I was unable to get a hold of her. If call is returned please teams me. Thanks. Jeanna Alves [facility] 2023-05-18 16:58:27 Forms received, faxed to VA. Received confirmation. Maricruz Scott [facility] 2023-05-18 16:53:39 Signed and given to PSS to fax. [facility] 2023-05-18 16:35:58 Jesus Alberto Hart is a 62 year old male and Manisha with [facility] is call to speak with Nurse Lo with Nuvia landry office. It is in regards to a referral sent over for radiation and needing additional information. Mignon Harding [facility] 2023-05-18 16:15:18 Called and spoke to patient to update him of possible self pay if [facility] does not send auth back soon enough before appt. Pt understood and stated he will call VA to clarify and call back if changes need to be made on appt. Please complete paperwork by EOD if possible so we may fax forms for patient so VA can auth more visits Jeanna Bailey [facility] 2023-05-18 15:22:23 VA Forms for fu with Kian Posey. Received from 05/18/2023. Printed and placed in provider's red folder for review/signing. Magan Marquez [facility] 2023-05-11 17:09:22 Per Sadia, "patient has returned call. His preferred location for scheduling is [facility], I expressed to him I will flip his referral, the scheduling team at , will obtain his auth from the [facility], they will reach out to start his process at that time, He understood. Ty" Vicky Granado RN [facility] 2023-05-11 12:16:19 Orthopedic Nurse Documentation Orthopedic Faculty:Magdalena Kapoor MD Follow up date: none scheduled at this time Documentation GANESH 04/25/23 PLAN: I have discussed the patient's physical exam and reviewed their x-rays and imaging with them in detail. All questions have been answered. We have talked about all the treatment options and have agreed upon: - referral for rad onc placed - Activity modification to minimize pain - NSAIDs prn for pain - Follow up 6-8 weeks after radiation therapy completion Contacted Sadia MUNSON in scheduling department for radiation oncology. Per Sadia, patient will have a consult with a provider. Per Sadia, she will contact patient to discuss/schedule. Vicky Granado RN [facility] 2023-05-09 15:07:18 Faxed via rightfax Gaye Esteban [facility] 2023-05-09 14:49:19 Forms signed and placed in green folder to fax. [facility] 2023-05-09 12:23:50 Good morning CIRCUIT BREAKER SUPERVISOR Nuvia Langston, You referred patient Jesus Alberto Hart to Dermatology and Gastroenterology departments. However, we need the VA to approve this visit. Please sign and date the attached form and fax along with clinicals to [phone]. If not, the VA will not cover this visit and the patient will have to reschedule or self-pay. Thank you for your attention to this matter. Thank you, Juan Luis Meyers Patient Funeral Pre Arrangement Counselor [facility] [address] [place] [id number] Forms placed in red folder. Magan Marquez [facility] 2023-05-09 12:03:13 Pt contacted at this time and notified that the MRI department will call once the [facility] has approved the MRI order. Karmen Ventura RN Karmen Ventura RN [facility] 2023-05-09 11:04:49 Jesus Alberto Hart is a 62 year old male Pt is wanting to know if is referral to radiation therapy is just for radiation or does he need to see a provider. Please contact pt. Ariella Ferrell [facility] 2023-05-09 10:57:47 Copied from [facility] #[id number]. Topic: Clinical - Medical Advice >> May 09, 2023 10:55 AM Patient Funeral Pre Arrangement Counselor wrote: Jesus Alberto Hart is a 62 year old male Pt calling to check the status of his MR Shoulder order and appt and approval Please advise Nivia Diez [facility] 2023-05-02 16:22:50 Spoke w patient. Auth for Rad Onc to be faxed for approval once Dr. Kapoor sings off on Sunday05/09/23. Auth in his box. Patient aware. Layla Vee [facility] 2023-05-02 09:50:21 Patient is calling with VA nurse to get Radiology treatment approval, VA nurse asking to speal to nurse of Dr. Kapoor to know what is the next step or what need to get done for approval. Sophia Georges [facility] 2023-05-01 15:58:52 OTC omega 3. I did not mean vascepa IM-CARDIOVASCULAR DISEASE STAFF [facility] 2023-04-30 16:04:25 Routing to [facility] for assistance. Vicky Granado RN [facility] 2023-04-30 11:06:05 Copied from [facility] #[id number]. Topic: Clinical - Paperwork/Forms >> Apr 30, 2023 11:04 AM Patient Funeral Pre Arrangement Counselor wrote: Jesus Alberto Hart is a 62 year old male and is calling to get the code for the radiology treatment he is needing. Pt was seen on 04-25-23. He needs the code to give to the VA to see if the treatment would be approved , or if he would need to request for services. Please advise. Taylor Bailey [facility] 2023-04-26 13:30:00 [employer] 30-day event monitor applied to patient. Wear and care explained. Patient verbalized understanding. Patient given instruction on how to return monitor on 05/26/23 to [employer]. Baudilio Kwon [facility] 2023-04-26 10:47:33 Images from the original note were not included. Per Dr. Javier Li, [employer] message sent to pt. Susana Saravia RN [facility] 2023-04-25 15:14:49 PSS please assist/follow up with VA regarding request for service forms and referral for VA. Jovana Huddleston RN Jovana Huddleston RN [facility] 2023-04-23 17:10:50 Request for services from [facility] form completed for referral to dermatology. PSS: please fax appropriately. Office notes attached. [facility] 2023-04-18 13:55:28 Rosuvastatin sent to [facility] pharmacy. Lipid levels reviewed from March 09 and CMP reviewed from Dec 2022. [employer] message sent to patient. [facility] 2023-04-18 13:34:20 Jesus Alberto Hart is a 62 year old male. Contact the pt to let him know that the forms have been faxed to the VA for his MRI and Gi referrals. Pt stated that there is another form that needs to be filled out in order to get it approved. Pt states that he is needing his rosuvastatin refilled through the VA as he is running out wants a 3 month supply. Will rout to provider for approval of refill. Abhilash with the VA at [phone]: He stated that it will take about 2 weeks to receive the referral and get it approved. They will reach out if anything else is needed. Calin Cage MA 04/18/2023 1:46 PM [facility] 2023-04-18 13:09:29 Completed but additional information needed and needs clarification with VA. Given to IVÁN for assistance. [facility] 2023-04-18 12:43:25 Jesus Alberto Hart is a 62 year old male Pt is needing for his PCP to send of a DUSTIN to the VA in order for them to approve his MRI order. Selena Raymond [facility] 2023-04-16 12:50:33 Message sent to the Ancillary Financial Counseling Team to address VA referral needed for patient Tanner for Event Monitor. Tabatha Almazan [facility] 2023-04-12 18:44:46 IVÁN/nurse/PSS - please send cardiac team this message so they can follow up on the cardiac side of what Mr. Hart is requesting - For the colonoscopy and shoulder imaging, please send the appropriate information to the VA. He provided numbers to contact. The MR of the shoulder has been ordered and the referral to gastroenterology has been placed. Please notify him once completed. Thank you. RER DRYING DEPARTMENT [facility] 2023-04-12 11:50:31 Nuvia, Please see message received from patient. Giovanna Hutchison RER DRYING DEPARTMENT Giovanna Tamayo RN [facility] 2023-04-12 11:46:10 Images from the original note were not included. Sánchez RN [facility] 2023-04-12 11:08:30 Addended by: ARABELLA PUCKETT RN on: 04/12/2023 11:08 AM Modules accepted: Orders [facility] 2023-04-12 11:07:07 Images from the original note were not included. Medication resent. [facility] Adult/Pedi Nurse20 minutes ago (10:45 AM) TR Refills have been requested for the following medications: pantoprazole 40 mg EC tablet [Nuvia Langston] Preferred pharmacy: [facility] - [place], [place] - [address] Delivery method: Pickup Puckett RN [facility] 2023-03-29 12:27:15 Spoke with patient, patient verified by name and . Patient clarified that he wants his medication to be sent to the [facility]. He also wanted to inform nuvia that if she ever has to send medication for him to take right away, she will need to send it to the [facility] pharmacy for a 14 day supply and any other long term care administrator medications she has to send them to [place]. 90 day supply w/ 1 refill has been sent to the [facility] for the Pantoprazole. Laura Arechiga MA 03/29/2023 12:30 PM RER DRYING DEPARTMENT Laura Arechiga MA [facility] 2023-03-29 11:33:32 Okay to send 90 day supply with 1 refill but please confirm pharmacy. From what I understand, all of [facility] 90 day supply [facility] 2023-03-29 10:10:04 Recent Visits Date Type Provider Dept 02/27/23 Office Visit Nuvia Langston FNP [facility] 02/13/23 Office Visit Nuvia Langston FNP [facility] Showing recent visits within past 540 days with a meds authorizing provider and meeting all other requirements Future Appointments Date Type Provider Dept 05/30/23 Appointment Nuvia Langston FNP [facility] Showing future appointments within next 150 days with a meds authorizing provider and meeting all other requirements GANESH 02/27/23 Dizziness Comment: chronic, post prandial, eating breakfast with protein/complex carb did not help, h/o fundoplasty Plan: start pantoprazole 40 mg EC tablet qam - referral to gastroenterology [facility] 2023-03-29 10:09:58 From: Jesus Alberto Hart To: Office of SAL Brown Sent: 03/29/2023 10:06 AM LABORER DRYING DEPARTMENT Subject: Medication Renewal Request Refills have been requested for the following medications: pantoprazole 40 mg EC tablet [Nuvia Langston] Patient Comment: Pls send 90 day supply Preferred pharmacy: [id number] - [place], [place] - [facility] [address] [facility] [address] Delivery metho d: Pickup [facility] 2023-03-26 12:44:26 Images from the original note were not included. Per Dr. Javier Li, Erica message sent to pt. RER DRYING DEPARTMENT Susana Saravia RN [facility] 2023-03-23 15:30:00 Images from the original note were not included. Venipuncture collection performed by clean technique on the right anticubitus. Total of 1 attempts were made. Slight pressure and a bandage/dressing were applied to the site(s). The patient experienced no complications. The following specimens were processed according to instructions and sent to [facility] laboratories per lab order on 03/23/2023: LT BLUE SST 1 RED LAV 1 PPT DK GREEN (LiHep) DK GREEN (SodH) LANG[place]ON DK BLUE (K2) DK BLUE (S) ACD Blood Culture NIPT/NTD RER DRYING DEPARTMENT [facility] 2023-03-19 16:28:26 Called [facility]. S/w brewery representative. Rep unable to track original caller from [place]. [facility]YING DEPARTMENT Susana Saravia RN [facility] 2023-03-19 15:52:11 Jesus Alberto Hart is a 62 year old male Leonard from the [facility] is calling to verify pt is scheduled with cardiology and can a nurse give him a call back to verify the clinic received forms for the pt [id number] RER DRYING DEPARTMENT Ke Jacobo [facility] 2023-03-15 15:24:27 0.1 % sent to pharmacy RER DRYING DEPARTMENT [facility] 2023-03-15 14:31:01 Contacted [facility] pharmacy , spoke with Jennifer , she staes they only carry the Pataday 0.1% drop or 0.7% drop. The [facility] is needing a new prescriptions sent with one of the other strengths. Jovana Huddleston RN RER DRYING DEPARTMENT Jovana Huddleston RN [facility] 2023-03-15 10:32:26 Contacted [facility] pharmacy, tech answered the phone , was placed on hold. Call was disconnected, will try again later. Jovana Huddleston RN RER DRYING DEPARTMENT [facility] 2023-03-14 11:54:09 Jesus Alberto Hart is a 62 year old male Pharmacy has a question regarding Olopatadine (PATADAY ONCE DAILY RELIEF) 0.2 % ophthalmic drops Lee [facility] 2023-03-02 16:15:31 A [employer] message was sent. Please refer to message for details. Tamayo RN [facility] 2023-03-02 14:35:23 Jesus Alberto Hart is a 62 year old male Patient called stating that he will have to contact his insurance [facility] to confirm the belly packer and patient called stating will call back to insure of referral needs to be changed Please advise Alves [facility] 2023-03-01 16:43:29 Jesus Alberto Hart is a 62 year old male Patient is calling and is having trouble with the [facility] approving his cardiology referral. Patient mentioned an "Charleemed Ahfrank". No belly packer by that name at this time, there is a MD Jennifer Judd for general cardiology. Please assist [phone] (home) Bailey [facility] 2023-03-01 09:51:00 Reina w/[facility] is calling back stating to disregard previous encounter. RER DRYING DEPARTMENT Molly Kennedy [facility] 2023-03-01 09:33:33 Jesus Alberto Hart is a 62 year old male Reina with [facility], states that Pantoprazole and Pataday sttes that these medication has to be from the formulary list, website: https,//www.pbm.[place].gov//pbm/ /national formulary. Asp. Thanks [facility] # [phone] Cordova [facility] 2023-02-21 14:49:05 Forms picked up, faxed over to [facility]. Received confirmation. Scott [facility] 2023-02-21 12:32:48 Forms signed and placed in green folder to be faxed to [facility]. RER DRYING DEPARTMENT [facility] 2023-02-16 13:06:15 Medication sent to [facility]. Jovana Huddleston RN RER DRYING DEPARTMENT Jovana Huddleston RN [facility] 2023-02-16 10:50:18 Jesus Alberto Hart is a 62 year old male Patient is calling with [facility] information and to check on referral. Informed him of nurse message and provided him with referral dept info. PH: [phone] [place] [id number] RER DRYING DEPARTMENT Connie Sharp [facility] 2023-02-16 09:57:38 Fluent[employer] message sent to pt. Jovana Huddleston RN RER DRYING DEPARTMENT [facility] 2023-02-15 11:39:03 Please find out the information for the [place] pharmacy and send the pending pantoprazole. Please assist in addressing the issue with the address listed previously. [facility] 2023-02-15 10:00:08 Jesus Alberto Hart is a 62 year old male Pt is returning missed call from clinic. Pt states that the VA says the [facility] address listed on the referral needs to match the [facility] address that they have on [facility] or the address on [facility] needs to match the [place] address. The VA said they are not able to change the address on their end. Please advise. Bailey [facility] 2023-02-15 09:51:27 Please see message below - if medication must be taken immediately VA requires rx be sent as 14 day supply. Disp Refills Start End BRENDA pantoprazole 40 mg EC tablet 30 tablet 2 02/13/2023 -- No Sig: Take 1 tablet by mouth in the morning. Sent to pharmacy as: pantoprazole 40 mg tablet,delayed release (PROTONIX) Class: eRX Route: Oral Order: [id number] Date/Time Signed: 02/13/2023 16:06 E-Prescribing Status: Receipt confirmed by pharmacy (02/13/2023 4:06 PM [facility]) Arabella Puckett RN 02/15/2023 9:51 AM Puckett RN [facility] 2023-02-15 08:46:35 Called pt to inform the referral received from [facility] has the wrong facility information. Pt was informed to call VA to update all information with them so he can be covered for previous and future appts. Pt was given [facility] phone number. Pt stated he will call [facility] and update facility address with them. Pt stated [facility] sent medication to [facility]. Per [facility], medications that have to be taken immediate have to be 14 day supply only. Everything else has to be sent to [facility] pharmacy for medication to be covered. Pt requesting medication to be switched. 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 RER DRYING DEPARTMENT Magan Marquez [facility] 2022-10-06 15:31:52 Formatting of this n ote might be different from the original. Contacted patient in regard to letter requested. Pt requesting letter for [facility] stating pt arrived to appointment and was seen by provider. Note created and sent to patient in MyChart and as requested to email. Joanne Stoll LVN Joanne Stoll [facility] 2022-10-06 14:46:26 Formatting of this n ote might be different from the original. Contacted pt in regard request for letter. Pt request call back later today. Joanne Stoll LVN T [facility] 2022-10-06 13:14:53 Formatting of this n ote might be different from the original. Pt calling states he was here on 10/03/22 and is needing a letter stating he had an appt and that he did come in to that appt. He is asking if it can be emailed to him. Callback [phone] [email or web address] Samantha Pastor [facility]
[2024-04-07] MEDS ORDERED: HYDROCODONE/APAP 5/325 MG TAB ONE (17:42)
[2024-04-07] MEDS ORDERED: KETOROLAC 30 MG/ML INJ ONE (17:42)
--- NOTE | 2024-04-07 18:37 | RAD REPORT ---
EXAMINATION: LUMBAR SPINE 3 VIEWS CLINICAL INDICATION: Male, 63 years old. PAIN TECHNIQUE: AP, lateral, focused lateral lumbosacral views of the lumbar spine were obtained. [id number]. COMPARISON: No prior exam. FINDINGS: For purposes of this dictation, it is assumed that there are 5 lumbar type vertebral bodies. ALIGNMENT: There is normal alignment of the lumbar spine. BONES: Vertebral bodies are normal in height. No aggressive osseous lesions. DISCS: Mild disc height loss at L3-4, L4-5, and L5-S1. Minimal endplate spurring. SOFT TISSUE: No soft tissue abnormalities. IMPRESSION: No acute lumbar spine abnormality.
--- NOTE | 2024-04-07 18:37 | RAD REPORT ---
EXAM:Thoracic Spine Ap/Lat HISTORY: PAIN COMPARISON: None IMPRESSION: No acute thoracic spine fracture identified. Mild wedging of a midthoracic vertebral body is favored chronic. Minimal thoracolumbar curvature. Matthew wesley degrees of disc height loss throughout the thoracic spine as well as bridging osteophytes in the upper thoracic spine.
--- NOTE | 2024-04-07 18:39 | EDPHYS ---
Physician Documentation [facility] Name: Jesus Alberto Jimenez Age: 63 yrs Sex: Male : 1960 Arrival Date: 04/07/2024 Time: 17:05 Bed IW1 Private MD: ED Physician Andrez Munguia HPI: 04/07 17:44 This 63 yrs old Male presents to ER via Ambulatory with complaints of Back dr5 Pain. 17:44 The patient presents with pain that is chronic. The symptoms are located in the low dr5 back, right mid back. Onset: The symptoms/episode began/occurred. The problem was sustained from a chronic condition, degenerative joint disease. Patient is a 63-year-old male with history of hyperlipidemia, anxiety, depressive disorder, and asthma coming in with right midline paraspinal back pain that is a chronic issue. Patient reports that his son is in town and has been overdoing it causing pain to get worse. Patient reports he has diclofenac cream, cyclobenzaprine from primary care doctor. Patient states that he went to an urgent care 2 days ago and received a Toradol injection and dexamethasone injection. Patient reports that he has a [facility] appointment in 2 days for same issue and MRI. Patient denies urinary incontinence, bowel incontinence, numbness tingling to bilateral lower legs, fever, or perirectal numbness.. Historical: - Allergies: 17:27 No Known Allergies; cm10 - Home Meds: 17:29 tamsulosin 0.4 mg oral capsule [Active]; gabapentin 100 mg oral capsule 1 cap 3 times cm10 per day [Active]; diclofenac sodium 1 % topical gel [Active]; fluoxetine 20 mg Oral tablet [Active]; cetirizine 10 mg oral tablet [Active]; rosuvastatin 40 mg oral tablet [Active]; Esgic 50-325-40 mg Oral tablet [Active]; amlodipine 5 mg tablet [Active]; lisinopril 10 mg Oral tablet [Active]; metoprolol succinate 25 mg oral Tablet, Extended Release 24 hr 0.5 tabs [Active]; Active Q 200 mg oral capsule [Active]; pantoprazole 40 mg oral tablet, delayed release (enteric coated) [Active]; albuterol sulfate 90 mcg/actuation Inhl HFA Aerosol Inhaler [Active]; Trazodone Oral [Active]; - PMHx: 17:29 Asthma; Sleep apnea; Hypercholesterolemia; polycythmia; Mixed anxiety and depressive cm10 disorder; PTSD; Hypertensive disorder; - Immunization history:: Adult Immunizations up to date. - Infectious Disease History:: Denies. - Social history:: Smoking status: Patient denies any tobacco usage or history of. ROS: 17:44 Constitutional: as per hpi dr5 Exam: 17:44 Constitutional: This is a well developed, well nourished patient who is awake, alert, dr5 and in no acute distress. Head/Face: Normocephalic, atraumatic. ENT: Nares patent. No nasal discharge, no septal abnormalities noted. Tympanic membranes are normal and external auditory canals are clear. Oropharynx with no redness, swelling, or masses, exudates, or evidence of obstruction, uvula midline. Mucous membranes moist. Neck: Trachea midline, no thyromegaly or masses palpated, and no cervical lymphadenopathy. Supple, full range of motion without nuchal rigidity, or vertebral point tenderness. No Meningismus. Chest/axilla: Normal chest wall appearance and motion. Nontender with no deformity. No lesions are appreciated. Cardiovascular: Regular rate and rhythm with a normal S1 and S2. Normal PMI, no JVD. No pulse deficits. Respiratory: Lungs have equal breath sounds bilaterally, clear to auscultation. No rales, rhonchi or wheezes noted. No increased work of breathing, no retractions or nasal flaring. Back: No spinal tenderness. No costovertebral tenderness. Full range of motion. Skin: Warm, dry with normal turgor. Normal color with no rashes, no lesions, and no evidence of cellulitis. Neuro: Awake and alert, GCS 15, oriented to person, place, time, and situation. Cranial nerves II-XII grossly intact. Motor strength 5/5 in all extremities. Sensory grossly intact. Cerebellar exam normal. Normal gait. 17:44 Back: pain, that is mild, of the right mid back, ROM is normal, normal spinal alignment noted, CVA tenderness, that is moderate, muscle spasm, is appreciated in the right mid back, 17:44 Musculoskeletal/extremity: Extremities: all appear grossly normal, with no appreciated pain with palpation, ROM: no acute changes, Circulation is intact in all extremities. Vital Signs: 17:22 BP 154 / 104; Pulse 88; Resp 15; Temp 97.9; Pulse Ox 97% on R/A; Weight 115.67 kg; cm10 Height 6 ft. 1 in. ; Pain 9/10; 17:22 Body Mass Index 33.64 (115.67 kg, 185.42 cm) cm10 17:22 Pain Scale: Adult cm10 MDM: 17:07 Medical Screening Exam initiated dr5 17:48 ED course: Plan is to order x-ray films and print them out so patient can take them dr5 with [facility] to [facility] to [facility] of back. Will give patient pain medication in ER, Ketorolac injection, and send patient home with steroid dose pack. Patient is agreeable to plan.. 19:14 Differential diagnosis: Fracture Osteoarthritis vertebral fracture, Muscle Spasm. Data dr5 reviewed: vital signs, nurses notes. I considered the following discharge prescriptions or medication management in the emergency department Medications were administered in the Emergency Department. See MAR. Historians other than the Patient: Daughter/Son: Alexey Dove. Care significantly affected by the following chronic conditions: Asthma, Hyperlipidemia, Anxiety / Depression. Care significantly affected by the following Social Determinants of Health: Poor access to healthcare and/or lack of insurance, Poor access to transportation, Problems related to employment. Counseling: I had a detailed discussion with the patient and/or guardian regarding the historical points, exam findings, and any diagnostic results supporting the discharge/admit diagnosis, the presence of at least one elevated blood pressure reading (>120/80) during this emergency department visit, radiology results, the need for outpatient follow up, for definitive care, a family practitioner, to return to the emergency department if symptoms worsen or persist or if there are any questions or concerns that arise at home. Medication response: Morral / Toradol. Response to treatment: the patient's symptoms have markedly improved after treatment. ED course: Patient is feeling much better after pain medication. Will give patient a short course of tramadol to take as needed, Robaxin to take in case flocks was not working, and steroid Dosepak. Patient will keep [facility] appointment in 2 days. Printed out results for x-ray as well as given patient CD. All questions answered and patient is agreeable to plan.. 04/07 17:28 Order name: XRAY Lumbar Spine (3 Views); Complete Time: 18:38 dr5 04/07 17:28 Order name: Spine Thoracic Ap/Lat XRAY; Complete Time: 18:38 dr5 Administered Medications: 17:48 Drug: HYDROcodone-acetaminophen PO 5 mg-325 mg 2 tabs PO once Route: PO; aa5 18:42 Follow up: Response: No adverse reaction cm10 17:48 Drug: Ketorolac IM 30 mg IM once Route: IM; Site: left gluteus; aa5 18:42 Follow up: Response: No adverse reaction; Pain is decreased cm10 Disposition: 19:37 Co-signature as Attending Physician, Andrez Munguia MD I reviewed the patient's care rn provided by the Advanced Practice Provider and agree with the diagnosis and treatment plan. Disposition Summary: 04/07/24 18:39 Discharge Ordered Notes: Location: Home dr5 Condition: Stable dr5 Diagnosis - Low back pain dr5 Followup: dr5 - With: Emergency Department - When: As needed - Reason: Worsening of condition Followup: dr5 - With: Private Physician - When: 1 - 2 days - Reason: Recheck today's complaints, Continuance of care, Re-evaluation by your physician Discharge Instructions: - Discharge Summary Sheet dr5 - Chronic Back Pain dr5 - Back Exercises dr5 Forms: - Work release form bd - Medication Reconciliation Form dr5 - Prescription Opioid Use dr5 - Patient Portal Instructions dr5 - Leadership Thank You Letter dr5 Prescriptions: - Tramadol 50 mg Oral Tablet - take 1 tablet ORAL route every 8 hours as needed; 12 tablet; Refills: 0, dr5 Product Selection Permitted - Medrol (Tino) 4 mg Oral Tablets, Dose Pack - take 1 tablet ORAL route as directed - follow package instructions; 1 packet; dr5 Refills: 0, Product Selection Permitted - methocarbamol 750 mg Oral tablet - take 1 tablet ORAL route 2 times per day As needed; 20 tablet; Refills: 0, dr5 Product Selection Permitted Signatures: Dispatcher [employer] Andrez Nolasco MD MD rn Calderon, Audri RN RN aa5 Aster De Leon RN RN cm10 Oracio Schroeder, SAL-Kaylin [facility]
--- NOTE | 2024-04-07 18:39 | ER ---
Nurse's Notes [facility] Name: Jesus Alberto Jimenez Age: 63 yrs Sex: Male : 1960 Arrival Date: 04/07/2024 Time: 17:05 Bed IW1 Private MD: Diagnosis: Low back pain Presentation: 04/07 17:22 Chief complaint: Patient states: Back pain onset 03/15/24. Pt states that he has a cm10 previous back injury and "I over did it" and has been having pain since. Coronavirus screen: Client denies travel out of the [place] in the last 14 days. Ebola Screen: Patient denies travel to an Ebola-affected area in the 21 days before illness onset. Initial Sepsis Screen: Does the patient meet any 2 criteria? No. Patient's initial sepsis screen is negative. Does the patient have a suspected source of infection? No. Patient's initial sepsis screen is negative. Risk Assessment: Do you want to hurt yourself or someone else? Patient reports no desire to harm self or others. Onset of symptoms was April 07, 2024. 17:22 Method Of Arrival: Ambulatory cm10 17:22 Acuity: MILVIA 3 cm10 Triage Assessment: 17:28 General: Appears in no apparent distress. uncomfortable, Behavior is calm, cooperative. cm10 Pain: Complains of pain in back Pain currently is 9 out of 10 on a pain scale. Neuro: No deficits noted. Level of Consciousness is awake, alert, obeys commands, Oriented to person, place, time, situation, Appropriate for age. Respiratory: No deficits noted. Airway is patent Respiratory effort is even, unlabored, Respiratory pattern is regular, symmetrical. Musculoskeletal: Range of motion: intact in all extremities, Reports pain in back. Historical: - Allergies: 17:27 No Known Allergies; cm10 - Home Meds: 17:29 tamsulosin 0.4 mg oral capsule [Active]; gabapentin 100 mg oral capsule 1 cap 3 times cm10 per day [Active]; diclofenac sodium 1 % topical gel [Active]; fluoxetine 20 mg Oral tablet [Active]; cetirizine 10 mg oral tablet [Active]; rosuvastatin 40 mg oral tablet [Active]; Esgic 50-325-40 mg Oral tablet [Active]; amlodipine 5 mg tablet [Active]; lisinopril 10 mg Oral tablet [Active]; metoprolol succinate 25 mg oral Tablet, Extended Release 24 hr 0.5 tabs [Active]; Active Q 200 mg oral capsule [Active]; pantoprazole 40 mg oral tablet, delayed release (enteric coated) [Active]; albuterol sulfate 90 mcg/actuation Inhl HFA Aerosol Inhaler [Active]; Trazodone Oral [Active]; - PMHx: 17:29 Asthma; Sleep apnea; Hypercholesterolemia; polycythmia; Mixed anxiety and depressive cm10 disorder; PTSD; Hypertensive disorder; - Immunization history:: Adult Immunizations up to date. - Infectious Disease History:: Denies. - Social history:: Smoking status: Patient denies any tobacco usage or history of. Screenin:42 [facility] ED Fall Risk Assessment (Adult) History of falling in the last 3 months, cm10 including since admission No falls in past 3 months (0 pts) Confusion or Disorientation No (0 pts) Intoxicated or Sedated No (0 pts) Impaired Gait No (0 pts) Mobility Assist Device Used No (0 pt) Altered Elimination No (0 pt) Score/Fall Risk Level 0 - 2 = Low Risk Oriented to surroundings, Maintained a safe environment, Hourly rounding (assess needs \\T\\ fall precautionary measures) done. Abuse screen: Denies threats or abuse. Denies injuries from another. Nutritional screening: No deficits noted. Tuberculosis screening: No symptoms or risk factors identified. Assessment: 18:43 Reassessment: Patient appears in no apparent distress at this time. Patient and/or cm10 family updated on plan of care and expected duration. Pain level reassessed. Patient is alert, oriented x 3, equal unlabored respirations, skin warm/dry/pink. Patient states feeling better. Patient states symptoms have improved. Vital Signs: 17:22 BP 154 / 104; Pulse 88; Resp 15; Temp 97.9; Pulse Ox 97% on R/A; Weight 115.67 kg; cm10 Height 6 ft. 1 in. ; Pain 9/10; 17:22 Body Mass Index 33.64 (115.67 kg, 185.42 cm) cm10 17:22 Pain Scale: Adult 10 ED Course: 17:07 Patient arrived in ED. mr 17:07 Oracio Schroeder [facility]-C [facility]. [facility] 17:07 Andrez Munguia MD is Attending Physician. dr5 17:27 Triage completed. cm10 17:28 Arm band placed on right wrist. Patient placed in waiting room. cm10 18:26 XRAY Lumbar Spine (3 Views) In Process Unspecified. EDMS 18:26 Spine Thoracic Ap/Lat XRAY In Process Unspecified. EDMS 18:43 Patient has correct armband on for positive identification. Provided Education on: cm10 Follow-up instructions. 18:43 No provider procedures requiring assistance completed. Patient did not have IV access cm10 during this emergency room visit. Administered Medications: 17:48 Drug: HYDROcodone-acetaminophen PO 5 mg-325 mg 2 tabs PO once Route: PO; aa5 18:42 Follow up: Response: No adverse reaction cm10 17:48 Drug: Ketorolac IM 30 mg IM once Route: IM; Site: left gluteus; aa5 18:42 Follow up: Response: No adverse reaction; Pain is decreased cm10 Medication: 18:42 VIS not applicable for this client. cm10 Outcome: 18:39 Discharge ordered by . dr5 18:43 Discharged to home ambulatory, with family, cm10 18:43 Condition: good 18:43 Discharge instructions given to patient, Instructed on discharge instructions, follow up and referral plans. medication usage, Demonstrated understanding of instructions, follow-up care, medications, Prescriptions given X 3, 18:43 Patient left the ED. cm10 Signatures: Dispatcher [employer] EDLA VenturaHeide, Reg Reg mr SamuelsCarmen, RN RN aa5 Aster De Leon RN RN cm10 Oracio Schroeder, ARTIFICIAL STONE APPLICATOR-C ARTIFICIAL STONE APPLICATOR-Cdr5
[2024-04-07 18:48] VITALS: BP 154/104; TEMP 97.9; O2SAT 97
== END 2024-04-07 18:43 | disposition home or self-care (01) ==
LOC: ER 17:05
DX: M54.50 Low back pain, unspecified (principal)
CPT/HCPCS: 72070; 72100; 96372; 99284